=== PATIENT | male | born 1945 | race Caucasian/White ===

== ENCOUNTER 2020-11-20 03:05 | Inpatient (IN) | payer MEDICARE, MEDICAID ==
[~2020-11-20] VITALS: Ht 180.3 cm; Wt 64.7 kg
[2020-11-20 04:14] LABS: BASO # 0.1 x10^3/uL (0.0-0.2); BASO % 0 % (0-3); EOS # 0.1 x10^3/uL (0.0-0.7); EOS % 0 % (0-3); HEMATOCRIT 39.2 % (39.0-53.0); HEMOGLOBIN 12.9 g/dL (13.0-17.5); LYMPH % 4 % (24-48); MEAN CORPUSCULAR HEMOGLOBIN 29 pg (25-35); MEAN CORPUSCULAR HGB CONC 33 g/dL (31-37); MEAN CORPUSCULAR VOLUME 87 fL (79-100); MONO # 0.9 x10^3/uL (0.0-1.1); MONO % 4 % (0-9); NEUT # 21.8 x10^3/uL (1.8-7.7); NEUT % 91 % (31-73); PLATELET COUNT 357 x10^3/uL (140-400); RED BLOOD COUNT 4.53 x10^6/uL (4.30-5.70); RED CELL DISTRIBUTION WIDTH 16.9 % (11.5-14.5); WHITE BLOOD COUNT 23.9 x10^3/uL (4.0-11.0)
[2020-11-20] MEDS ORDERED: IV NORMAL SALINE 1000ML BAG 1,000 ML IV ONE (04:30)
[2020-11-20 04:31] LABS: CALCIUM 8.4 mg/dL (8.5-10.1); CREATININE 1.1 mg/dL (0.7-1.3); GFR 65.4; POTASSIUM 3.9 mmol/L (3.5-5.1)
--- NOTE | 2020-11-20 04:33 | PHYS DOC ---
Past Medical History Past Medical History: CHF, COPD, Glaucoma, High Cholesterol, Hypertension, Hypothyroid, Schizophrenia, Other Additional Past Medical Histor: Parkinson's, arthrosclerosis, and bueger's disease Past Surgical History: Pacemaker Smoking Status: Never Smoker Alcohol Use: None General Adult EDM: Chief Complaint: GI PROBLEM HPI: HPI: Patient is a 75 year old male past medical history hyperlipidemia hypertension Parkinson's hypothyroid CHF COPD was sent to the emergency department for evaluation due to abdominal distention. Per EMS patient was sent to the ER for evaluation of abdominal distention. Patient reports tonight he vomited 6 or 7 times. He denies any associated abdominal pain. On arrival patient found to have a heart rate in the 120s. Review of Systems: Review of Systems: Review of systems: Constitutional symptoms- No fever, no chills. Eyes- No Discharge, No Visual Loss Respiratory symptoms- No shortness of breath, No wheezing, No Dyspnea on Exertion Cardiovascular Systems; No chest pain, No Palpitations, No syncope Gastrointestinal symptoms: No abdominal pain, Positive nausea, Positive vomiting denies diarrhea. Genitourinary symptoms: No dysuria. Musculoskeletal symptoms: No back pain No extremity pain. NEUROLOGICAL Symptoms: No headache, no generalized weakness; No focal Weakness Skin: No rash. Heart Score: C/O Chest Pain: N/A Risk Factors: Risk Factors: DM, Current or recent (<one month) smoker, HTN, HLP, family history of CAD, obesity. Risk Scores: Score 0 - 3: 2.5% MACE over next 6 weeks - Discharge Home Score 4 - 6: 20.3% MACE over next 6 weeks - Admit for Clinical Observation Score 7 - 10: 72.7% MACE over next 6 weeks - Early Invasive Strategies Current Medications: Current Medications Medications (Trade) Dose Ordered Sig/Wong Start Time Stop Time Status Last Admin Dose Admin Diltiazem HCl (Cardizem Iv Push) 20 mg 1X ONCE 11/20/20 04:30 11/20/20 04:31 Diltiazem HCl 125 mg/Sodium Chloride 125 ml @ 5 mls/hr 1X ONCE 11/20/20 04:30 11/21/20 05:29 Sodium Chloride 1,000 ml @ 1,000 mls/hr 1X ONCE 11/20/20 04:30 11/20/20 05:29 Allergies: Allergies: Allergies Coded Allergies Type Severity Reaction Last Updated Verified methylparaben Allergy Intermediate 11/20/20 Yes phenazopyridine Allergy Intermediate 11/20/20 Yes Physical Exam: PE: General: alert, no acute distress. Skin: warm, dry and intact. HENT: bilateral external ears normal, oropharynx moist, nose normal. Head:: Normocephalic, atraumatic. Neck: Trachea midline. Eyes: EOMI, Normal conjunctiva, No drainage CARDIOVASCULAR: Tachycardia RESPIRATORY: No respiratory distress Back: Full range of motion. Skin: Warm, dry, no erythema, no rash. MUSCULOSKELETAL: Full range of motion of bilateral upper and lower extremities. GASTROINTESTINAL: Abdomen soft without rebound or guarding NEUROLOGICAL: Alert and noted to person, place and time. No neurological deficits observed Psychiatric: Cooperative. Normal judgment Current Patient Data: Labs: Laboratory Tests Test 11/20/20 04:05 White Blood Count 23.9 x10^3/uL (4.0-11.0) H Red Blood Count 4.53 x10^6/uL (4.30-5.70) Hemoglobin 12.9 g/dL (13.0-17.5) L Hematocrit 39.2 % (39.0-53.0) Mean Corpuscular Volume 87 fL (79-100) Mean Corpuscular Hemoglobin 29 pg (25-35) Mean Corpuscular Hemoglobin Concent 33 g/dL (31-37) Red Cell Distribution Width 16.9 % (11.5-14.5) H Platelet Count 357 x10^3/uL (140-400) Neutrophils (%) (Auto) 91 % (31-73) H Lymphocytes (%) (Auto) 4 % (24-48) L Monocytes (%) (Auto) 4 % (0-9) Eosinophils (%) (Auto) 0 % (0-3) Basophils (%) (Auto) 0 % (0-3) Neutrophils # (Auto) 21.8 x10^3/uL (1.8-7.7) H Lymphocytes # (Auto) 1.0 x10^3/uL (1.0-4.8) Monocytes # (Auto) 0.9 x10^3/uL (0.0-1.1) Eosinophils # (Auto) 0.1 x10^3/uL (0.0-0.7) Basophils # (Auto) 0.1 x10^3/uL (0.0-0.2) Platelet Estimate Pending Laboratory Tests 11/20/20 04:05 Vital Signs: Vital Signs Date Time Temp Pulse Resp B/P (MAP) Pulse Ox O2 Delivery O2 Flow Rate FiO2 11/20/20 03:05 98.0 127 18 142/65 (90) 95 Room Air 98.0 EKG: EKG: [] Radiology/Procedures: Radiology/Procedures: [] Impression: EXAMINATION: CT ABDOMEN+PELVIS W CLINICAL HISTORY: Nausea vomiting abdominal distention TECHNIQUE: CT of the abdomen and pelvis was performed using standard technique, scanning from just above the dome of the diaphragm to the symphysis pubis following administration of intravenous contrast. CT Dose Reduction Employed: One or more of the following individualized dose reduction techniques were utilized for this examination: 1. Automated exposure control 2. Adjustment of the mA and/or kV according to patient size 3. Use of iterative reconstruction technique. COMPARISON: None FINDINGS: Partially visualized cardiac pacemaker/ICD leads. Curvilinear bibasilar subsegmental atelectasis and/or scarring. Trace left pleural effusion. Tiny hypoenhancing lesion in the right hepatic lobe, too small adequately characterize but likely benign. Gallbladder, pancreas, spleen, and adrenal glands unremarkable. Mild left hydronephrosis and proximal hydroureter with mild obstruction possibly related to a small crossing vessel (series 2 image 43). No urinary calculi. Bilateral renal vascular calcifications. Minimally filled urinary bladder with Bueno catheter in place. Moderate rectal stool retention, concerning for impaction. Prominent formed stool and gas throughout the colon. Fluid-filled distal small bowel. Normal appendix. Small hiatal hernia. Extensive arterial atherosclerotic calcification without aneurysm. Thoracolumbar degenerative changes, greatest at L5-S1. IMPRESSION: Findings concerning for rectal stool impaction with additional prominent formed stool throughout the colon as described, correlate for impaction and constipation. Mild left hydroureteronephrosis as described, possibly related to a small crossing vessel. Course & Med Decision Making: Course & Med Decision Making Pertinent Labs and Imaging studies reviewed. (See chart for details) [] Patient was evaluated for chief complaint. Work-up consisted of laboratory analysis and radiologic imaging.. Patient had a WBC greater than 20,000.--Patient was started on Zosyn. Patient tachycardic with heart rates in the 120s 130s treatment included IV fluids. Acute abdominal series WET read stool throughout the colon no air-fluid levels. CT abdomen pelvis ordered pending at the time of admission clinical concern enteritis colitis versus SBO. Patient was admitted to the hospitalist for further evaluation and treatment [place] Disclaimer: Dragthony Disclaimer: This electronic medical record was generated, in whole or in part, using a voice recognition dictation system. Departure Departure Impression: Primary Impression: Nausea & vomiting Additional Impression: Leukocytosis Disposition: ADMITTED INPATIENT Admitting Physician: YESSICA Condition: STABLE Referrals: ROSANNA WALLER MD (PCP) AMARIS OATES DO Nov 20, 2020 04:33
[2020-11-20 04:35] LABS: ALBUMIN 3.2 g/dL (3.4-5.0); ALBUMIN/GLOBULIN RATIO 0.9 (1.0-1.7); TOTAL BILIRUBIN 0.5 mg/dL (0.2-1.0); TOTAL PROTEIN 6.6 g/dL (6.4-8.2)
[2020-11-20 04:55] LABS: % BANDS 2 % (0-9); % LYMPHS 5 % (24-48); % MONOS 5 % (0-10); % SEGS 88 % (35-66); PLT ESTIMATE ADEQUATE (ADEQUATE)
[2020-11-20] MEDS ORDERED: CONTRAST GIVEN. MC PRN (05:00)
[2020-11-20] MEDS ORDERED: IOHEXOL 300 MG/ML 100ML VIAL. IV ONE (05:00)
[2020-11-20] MEDS ORDERED: ONDANSETRON PF 4 MG/2 ML VIAL. IV PRN ×2 (06:30→17:30)
--- NOTE | 2020-11-20 06:56 | RAD ---
EXAMINATION: CT ABDOMEN+PELVIS W CLINICAL HISTORY: Nausea vomiting abdominal distention TECHNIQUE: CT of the abdomen and pelvis was performed using standard technique, scanning from just ab ove the dome of the diaphragm to the symphysis pubis following administration of intravenous contrast . CT Dose Reduction Employed: One or more of the following individualized dose reduction techniques wer e utilized for this examination: 1. Automated exposure control 2. Adjustment of the mA and/or kV ac cording to patient size 3. Use of iterative reconstruction technique. COMPARISON: None FINDINGS: Partially visualized cardiac pacemaker/ICD leads. Curvilinear bibasilar subsegmental atelectasis and/ or scarring. Trace left pleural effusion. Tiny hypoenhancing lesion in the right hepatic lobe, too small adequately characterize but likely rachel ign. Gallbladder, pancreas, spleen, and adrenal glands unremarkable. Mild left hydronephrosis and proximal hydroureter with mild obstruction possibly related to a small c rossing vessel (series 2 image 43). No urinary calculi. Bilateral renal vascular calcifications. Minimally filled urinary bladder with Bueno catheter in place. Moderate rectal stool retention, concerning for impaction. Prominent formed stool and gas throughout the colon. Fluid-filled distal small bowel. Normal appendix. Small hiatal hernia. Extensive arterial atherosclerotic calcification without aneurysm. Thoracolumbar degenerative changes, greatest at L5-S1. IMPRESSION: Findings concerning for rectal stool impaction with additional prominent formed stool throughout the colon as described, correlate for impaction and constipation. Mild left hydroureteronephrosis as described, possibly related to a small crossing vessel. Electronically signed by: Afshin Allison DO (11/20/2020 6:53 AM) SHANDRA
[2020-11-20] MEDS ORDERED: PIPERACILLIN/TAZOBACTAM 4.5 GM in IV NORMAL SALINE 100ML 100 ML IV ONE (07:00)
--- NOTE | 2020-11-20 09:51 | PDOC1 ---
History and Physical Date of Admission Date of Admission DATE: 11/20/20 TIME: 09:50 Identification/Chief Complaint Chief Complaint Vomiting Source Source: Chart review, Patient History of Present Illness History of Present Illness Mr Miller is a 75 year old male past medical history hyperlipidemia hypertension Parkinson's hypothyroid CHF COPD, Glaucoma, Hypothyroid, Schizophrenia, Parkinson's, and buerger's disease who presents to ED from his [facility] in [place], [place] with report of abdominal distention and 7 episodes of emesis. He does note he vomited but has not had any abdominal pain. CT abdomen pelvis with mild hydroureter on left, no stones notes. Findings concerning for rectal stool impaction with additional prominent formed stool throughout the colon. WBC 23.9, Hb 12.9, platelets 357, Na 131, K 3.9, BUN 12, Cr 1.1, glucose 166, trop 0, Albumin 3.2 On arrival patient found to have a heart rate in the 120s was started on cardizem per ED. EKG does appear to have ventricularly paced rhythm with rate 124 bpm and multiple PVCs, no ST segment elevations or TWI. Admitted for further care. Family History Family History Reviewed, unknown Family History: Family History Unknown Social History Smoke: No ALCOHOL: none Drugs: None Current Medications Current Medications Current Medications Diltiazem HCl (Cardizem Iv Push) 20 mg 1X ONCE IVP ; Start 11/20/20 at 04:30; Stop 11/20/20 at 06:34; Status DC Diltiazem HCl 125 mg/Sodium Chloride 125 ml @ 5 mls/hr 1X ONCE IV ; Start 11/20/20 at 04:30; Stop 11/20/20 at 06:34; Status DC Sodium Chloride 1,000 ml @ 1,000 mls/hr 1X ONCE IV Last administered on 11/20/20at 05:03; Start 11/20/20 at 04:30; Stop 11/20/20 at 05:29; Status DC Iohexol (Omnipaque 300 Mg/ml) 75 ml 1X ONCE IV Last administered on 11/20/20at 05:37; Start 11/20/20 at 05:00; Stop 11/20/20 at 05:01; Status DC Info (CONTRAST GIVEN -- Rx MONITORING) 1 each PRN DAILY PRN MC SEE COMMENTS; Start 11/20/20 at 05:00; Stop 11/22/20 at 04:59 Ondansetron HCl (Zofran) 4 mg PRN Q8HRS PRN IV NAUSEA/VOMITING 1ST CHOICE; Start 11/20/20 at 06:30; Stop 11/21/20 at 06:29 Piperacillin Sod/ Tazobactam Sod 4.5 gm/Sodium Chloride 100 ml @ 200 mls/hr 1X ONCE IV Last administered on 11/20/20at 07:14; Start 11/20/20 at 07:00; Stop 11/20/20 at 07:29; Status DC Allergies Allergies: Coded Allergies: methylparaben (Verified Allergy, Intermediate, 11/20/20) phenazopyridine (Verified Allergy, Intermediate, 11/20/20) ROS General: YES: Fatigue, Malaise; No: Chills, Night Sweats, Appetite, Other PSYCHOLOGICAL ROS: YES: Anxiety, Behavioral Disorder; No: Concentration difficultie, Decreased libido, Depression, Disorientation, Hallucinations, Hostility, Irritablity, Memory difficulties, Mood Swings, Obsessive thoughts, Physical abuse, Sexual abuse, Sleep disturbances, Suicidal ideation, Other Eyes: No Blurry vision, No Decreased vision, No Double vision, No Dry eyes, No Excessive tearing, No Eye Pain, No Itchy Eyes, No Loss of vision, No Photophobia, No Scotomata, No Uses contacts, No Uses glasses, No Other HEENT: No: Heacaches, Visual Changes, Hearing change, Nasal congestion, Nasal discharge, Oral lesions, Sinus pain, Sore Throat, Epistaxis, Sneezing, Snoring, Tinnitus, Vertigo, Vocal changes, Other ALLERGY AND IMMUNOLOGY: No: Hives, Insect Bite Sensitivity, Itchy/Watery Eyes, Nasal Congestion, Post Nasal Drip, Seasonal Allergies, Other Hematological and Lymphatic: No: Bleeding Problems, Blood Clots, Blood Transfusions, Brusing, Night Sweats, Pallor, Swollen Lymph Nodes, Other ENDOCRINE: No: Breast Changes, Galactorrhea, Hair Pattern Changes, Hot Flashes, Malaise/lethargy, Mood Swings, Palpitations, Polydipsia/polyuria, Skin Changes, Temperature Intolerance, Unexpected Weight Changes, Other Breast: No New/Changing Breast Lumps, No Nipple changes, No Nipple discharge, N o Other Respiratory: No: Cough, Hemoptysis, Orthopnea, Pleuritic Pain, Shortness of breath, SOB with excertion, Sputum Changes, Stridor, Tachypnea, Wheezing, Other Cardiovascular: No Chest Pain, No Palpitations, No Orthopnea, No Paroxysmal Noc. Dyspnea, No Edema, No Lt Headedness, No Other Gastrointestinal: No Nausea, No Vomiting, No Abdominal Pain, No Diarrhea, No Constipation, No Melena, No Hematochezia, No Other Genitourinary: No Dysuria, No Frequency, No Incontinence, No Hematuria, No Retention, No Discharge, No Urgency, No Pain, No Flank Pain, No Other, No , No , No , No , No , No , No Musculoskeletal: No Gait Disturbance, No Joint Pain, No Joint Stiffness, No Joint Swelling, No Muscle Pain, No Muscular Weakness, No Pain In:, No Swelling In:, No Other Neurological: No Behavorial Changes, No Bowel/Bladder ControlChng, No Confusion, No Dizziness, No Gait Disturbance, No Headaches, No Impaired Coord/balance, No Memory Loss, No Numbness/Tingling, No Seizures, No Speech Problems, No Tremors, No Visual Changes, No Weakness, No Other Skin: No Dry Skin, No Eczema, No Hair Changes, No Lumps, No Mole Changes, No Mottling, No Nail Changes, No Pruritus, No Rash, No Skin Lesion Changes, No Other, No Acne Physical Exam General: Alert, Cooperative, No acute distress HEENT: Atraumatic, PERRLA, EOMI, Mucous membr. moist/pink Lungs: Clear to auscultation, Normal air movement Heart: S1S2, RRR, no thrills, no rubs Abdomen: Normal bowel sounds, No hepatosplenomegaly, No masses, Other (distended) Extremities: No clubbing, No cyanosis, No edema, Normal pulses, No tenderness/swelling Skin: Other (Bilateral foot wounds, gluteal redness) Neuro: Sensation intact, Cranial nerves 3-12 NL, Reflexes 2+ Psych/Mental Status: Other (Confused) Vitals Vitals Vital Signs Date Time Temp Pulse Resp B/P (MAP) Pulse Ox O2 Delivery O2 Flow Rate FiO2 11/20/20 06:29 98 16 91/55 (67) 94 Room Air 11/20/20 03:05 98.0 98.0 Labs Labs Laboratory Tests Test 11/20/20 04:05 White Blood Count 23.9 x10^3/uL (4.0-11.0) Red Blood Count 4.53 x10^6/uL (4.30-5.70) Hemoglobin 12.9 g/dL (13.0-17.5) Hematocrit 39.2 % (39.0-53.0) Mean Corpuscular Volume 87 fL (79-100) Mean Corpuscular Hemoglobin 29 pg (25-35) Mean Corpuscular Hemoglobin Concent 33 g/dL (31-37) Red Cell Distribution Width 16.9 % (11.5-14.5) Platelet Count 357 x10^3/uL (140-400) Neutrophils (%) (Auto) 91 % (31-73) Lymphocytes (%) (Auto) 4 % (24-48) Monocytes (%) (Auto) 4 % (0-9) Eosinophils (%) (Auto) 0 % (0-3) Basophils (%) (Auto) 0 % (0-3) Neutrophils # (Auto) 21.8 x10^3/uL (1.8-7.7) Lymphocytes # (Auto) 1.0 x10^3/uL (1.0-4.8) Monocytes # (Auto) 0.9 x10^3/uL (0.0-1.1) Eosinophils # (Auto) 0.1 x10^3/uL (0.0-0.7) Basophils # (Auto) 0.1 x10^3/uL (0.0-0.2) Segmented Neutrophils % 88 % (35-66) Band Neutrophils % 2 % (0-9) Lymphocytes % 5 % (24-48) Monocytes % 5 % (0-10) Platelet Estimate Adequate (ADEQUATE) Sodium Level 131 mmol/L (136-145) Potassium Level 3.9 mmol/L (3.5-5.1) Chloride Level 94 mmol/L (98-107) Carbon Dioxide Level 23 mmol/L (21-32) Anion Gap 14 (6-14) Blood Urea Nitrogen 12 mg/dL (8-26) Creatinine 1.1 mg/dL (0.7-1.3) Estimated GFR (Cockcroft-Gault) 65.4 BUN/Creatinine Ratio 11 (6-20) Glucose Level 166 mg/dL (70-99) Calcium Level 8.4 mg/dL (8.5-10.1) Total Bilirubin 0.5 mg/dL (0.2-1.0) Aspartate Amino Transf (AST/SGOT) 20 U/L (15-37) Alanine Aminotransferase (ALT/SGPT) 13 U/L (16-63) Alkaline Phosphatase 54 U/L (46-116) Troponin I Quantitative < 0.017 ng/mL (0.000-0.055) Total Protein 6.6 g/dL (6.4-8.2) Albumin 3.2 g/dL (3.4-5.0) Albumin/Globulin Ratio 0.9 (1.0-1.7) Lipase 29 U/L (73-393) Laboratory Tests Test 11/20/20 04:05 White Blood Count 23.9 x10^3/uL (4.0-11.0) Red Blood Count 4.53 x10^6/uL (4.30-5.70) Hemoglobin 12.9 g/dL (13.0-17.5) Hematocrit 39.2 % (39.0-53.0) Mean Corpuscular Volume 87 fL (79-100) Mean Corpuscular Hemoglobin 29 pg (25-35) Mean Corpuscular Hemoglobin Concent 33 g/dL (31-37) Red Cell Distribution Width 16.9 % (11.5-14.5) Platelet Count 357 x10^3/uL (140-400) Neutrophils (%) (Auto) 91 % (31-73) Lymphocytes (%) (Auto) 4 % (24-48) Monocytes (%) (Auto) 4 % (0-9) Eosinophils (%) (Auto) 0 % (0-3) Basophils (%) (Auto) 0 % (0-3) Neutrophils # (Auto) 21.8 x10^3/uL (1.8-7.7) Lymphocytes # (Auto) 1.0 x10^3/uL (1.0-4.8) Monocytes # (Auto) 0.9 x10^3/uL (0.0-1.1) Eosinophils # (Auto) 0.1 x10^3/uL (0.0-0.7) Basophils # (Auto) 0.1 x10^3/uL (0.0-0.2) Segmented Neutrophils % 88 % (35-66) Band Neutrophils % 2 % (0-9) Lymphocytes % 5 % (24-48) Monocytes % 5 % (0-10) Platelet Estimate Adequate (ADEQUATE) Sodium Level 131 mmol/L (136-145) Potassium Level 3.9 mmol/L (3.5-5.1) Chloride Level 94 mmol/L (98-107) Carbon Dioxide Level 23 mmol/L (21-32) Anion Gap 14 (6-14) Blood Urea Nitrogen 12 mg/dL (8-26) Creatinine 1.1 mg/dL (0.7-1.3) Estimated GFR (Cockcroft-Gault) 65.4 BUN/Creatinine Ratio 11 (6-20) Glucose Level 166 mg/dL (70-99) Calcium Level 8.4 mg/dL (8.5-10.1) Total Bilirubin 0.5 mg/dL (0.2-1.0) Aspartate Amino Transf (AST/SGOT) 20 U/L (15-37) Alanine Aminotransferase (ALT/SGPT) 13 U/L (16-63) Alkaline Phosphatase 54 U/L (46-116) Troponin I Quantitative < 0.017 ng/mL (0.000-0.055) Total Protein 6.6 g/dL (6.4-8.2) Albumin 3.2 g/dL (3.4-5.0) Albumin/Globulin Ratio 0.9 (1.0-1.7) Lipase 29 U/L (73-393) Images Images CT abdomen/pelvis: Partially visualized cardiac pacemaker/ICD leads. Curvilinear bibasilar subsegmental atelectasis and/or scarring. Trace left pleural effusion. Tiny hypoenhancing lesion in the right hepatic lobe, too small adequately characterize but likely benign. Gallbladder, pancreas, spleen, and adrenal glands unremarkable. Mild left hydronephrosis and proximal hydroureter with mild obstruction possibly related to a small crossing vessel (series 2 image 43). No urinary calculi. Bilateral renal vascular calcifications. Minimally filled urinary bladder with Berman catheter in place. Moderate rectal stool retention, concerning for impaction. Prominent formed stool and gas throughout the colon. Fluid-filled distal small bowel. Normal appendix. Small hiatal hernia. Extensive arterial atherosclerotic calcification without aneurysm. Thoracolumbar degenerative changes, greatest at L5-S1. IMPRESSION: Findings concerning for rectal stool impaction with additional prominent formed stool throughout the colon as described, correlate for impaction and constipation. Mild left hydroureteronephrosis as described, possibly related to a small crossing vessel. VTE Prophylaxis Ordered VTE Prophylaxis Devices: No VTE Pharmacological Prophylaxi: Yes Assessment/Plan Assessment/Plan A/P: Nausea and vomiting - no clear SBO, constipation likely etiology. Will keep NPO. IV antiemetics, fluids Sepsis - with left hydroureter and possible colitiis, will f/u empiric cultures from urine and blood and give zosyn for UTI/ GI coverage Hyponatremia - likely hypovolemic. will gently hydrate given his h/o CHF, will limit overall fluids Hydronephrosis - no pain, but patient is poor historian. Likely due to constipation and with vessel overlying ureter, will cont berman and antibiotics for now Tachycardia - Likely due to sepsis. has pacer appears to be functioning H/o v-tach - s/p ppm, also on amiodarone Hyperlipidemia - on statin Hypertension - BP low, likely autonomic dysfunction possibly associated with parkinson disease Hypothyroid - on levothyroxine 50mcg daily CHF - diastolic per SNF records. No BB noted, likely cannot tolerate due to low BP COPD - prn nebs Glaucoma - eye drops Schizophrenia - on risperidal 1mg and olanzapine 10mg QHS Parkinson's - on sinemet Buerger's disease- no smoking Urinary retention - has chronic berman catheter changed monthly. Bilateral foot wounds - chronic, will have wound care to see FEN - NPO PPX - heparin CODE - FULL. Surrogate decision maker is Faith Ambrose Dispo - inpatient Justifications for Admission Other Justification SARIAH LOMAS MD Nov 20, 2020 09:51
[2020-11-20] MEDS ORDERED: BISACODYL 10 MG SUPP.RECT. PR PRN (10:00)
[2020-11-20 11:30] VITALS: BP 101/56
[2020-11-20 15:06] VITALS: BP 95/50
[2020-11-20] MEDS ORDERED: IV RINGERS,LACTATED 1000ML 1,000 ML IV ONE (17:30)
[2020-11-20 17:57] VITALS: BP 110/54
[2020-11-20] MEDS: PIPERACILLIN/TAZOBACTAM 3.375 GM in IV NORMAL SALINE 50ML 50 ML IV SCH (18:15)
[2020-11-20 19:00] VITALS: BP 111/52
--- NOTE | 2020-11-20 19:33 | EKG ---
[facility] [address] [place] [address] Test Date: 2020-11-20 Test Time: 03:23:00 Pat Name: FLORENTINO BROWN Department: Room: 434 1 Gender: M Manager Shop: : [id number] Requested By: AMARIS OATES Order Number: [id number] Reading MD: Measurements Intervals [place] Rate: 124 P: [place]: QRS: 54 QRSD: 84 T: 85 QT: 290 QTc: 420 Interpretive Statements IRREGULAR RHYTHM, NO P-WAVE FOUND VENTRICULAR PREMATURE COMPLEX(ES) QRS(T) CONTOUR ABNORMALITY CONSISTENT WITH ANTERIOR INFARCT POSSIBLY RECENT ABNORMAL ECG RI6.02 No previous ECG available for comparison
[2020-11-20] MEDS ORDERED: ALBUTEROL SULFATE 2.5 MG/3 ML NEBU. NEB PRN (21:45)
[2020-11-20] MEDS ORDERED: hydrALAZINE 20 MG/ML VIAL. IVP PRN (22:00)
[2020-11-20] MEDS ORDERED: METOCLOPRAMIDE HCL 10 MG/2 ML VIAL. IVP PRN (22:00)
[2020-11-20] MEDS ORDERED: BENZTROPINE MESYLATE 2 MG/2 ML VIAL. IM PRN (22:00)
[2020-11-20] MEDS: HEPARIN for SUB-Q USE 5,000 UNIT/ML VIAL. SQ SCH (22:22)
[2020-11-20 23:00] VITALS: BP 93/42
[2020-11-21] MEDS: PIPERACILLIN/TAZOBACTAM 3.375 GM in IV NORMAL SALINE 50ML 50 ML IV SCH ×5 (00:23→23:56)
[2020-11-21 03:00] VITALS: BP 91/45
[2020-11-21] MEDS: HEPARIN for SUB-Q USE 5,000 UNIT/ML VIAL. SQ SCH ×3 (04:58→21:12)
[2020-11-21 06:03] LABS: BASO # 0.1 x10^3/uL (0.0-0.2); BASO % 1 % (0-3); EOS # 0.3 x10^3/uL (0.0-0.7); EOS % 4 % (0-3); HEMOGLOBIN 10.4 g/dL (13.0-17.5); LYMPH # 1.7 x10^3/uL (1.0-4.8); LYMPH % 24 % (24-48); MEAN CORPUSCULAR HEMOGLOBIN 29 pg (25-35); MEAN CORPUSCULAR HGB CONC 34 g/dL (31-37); MEAN CORPUSCULAR VOLUME 86 fL (79-100); MONO # 0.6 x10^3/uL (0.0-1.1); MONO % 8 % (0-9); NEUT # 4.5 x10^3/uL (1.8-7.7); NEUT % 63 % (31-73); PLATELET COUNT 297 x10^3/uL (140-400); RED BLOOD COUNT 3.59 x10^6/uL (4.30-5.70); WHITE BLOOD COUNT 7.2 x10^3/uL (4.0-11.0)
[2020-11-21 06:22] LABS: ALBUMIN 2.4 g/dL (3.4-5.0); ALBUMIN/GLOBULIN RATIO 0.7 (1.0-1.7); CREATININE 0.9 mg/dL (0.7-1.3); GFR 82.5; POTASSIUM 3.3 mmol/L (3.5-5.1); TOTAL BILIRUBIN 0.4 mg/dL (0.2-1.0); TOTAL PROTEIN 5.7 g/dL (6.4-8.2)
[2020-11-21 07:00] VITALS: BP 98/53
[2020-11-21] MEDS ORDERED: MAGNESIUM HYDROXIDE 2,400 MG/30 ML ORAL.SUSP. PO PRN (07:00)
[2020-11-21] MEDS ORDERED: POLYETHYLENE GLYCOL 3350 17 GM PACKET. PO SCH (09:00)
--- NOTE | 2020-11-21 09:33 | PDOC2 ---
GI CONSULT Date of Service: DATE: 11/21/20 TIME: 09:33 Reason For Consult: colitis/constipation HPI: HPI: 75 y/o male w/ PMH as below. Sent to ER from [facility] w/ vomiting. Noted w/ possible fecal impaction on CT. Nurse reports two large stools since admission w/o recurrent emesis. Not much history from pt - he denies pain, knows the correct year, but cannot tell me who is president. He does recall vomiting before coming to the hospital. D/w nurse - apparently was on Hospice but no longer? Full code here. PMH: PMH: CHF, COPD, Parkinson's, HTN, HLD, hypothyroidism, schizophrenia, glaucoma, urinary retention w/ chronic Ubeno, Buerger's disease, pacemaker FH: Family History: No pertinent hx Social History: Smoke: No ALCOHOL: none Drugs: None ROS: Denies pain. Vitals: Vitals: Vital Signs Date Time Temp Pulse Resp B/P (MAP) Pulse Ox O2 Delivery O2 Flow Rate FiO2 11/21/20 07:44 97 Room Air 11/21/20 07:00 98.3 71 17 98/53 (68) 98.3 Labs: Labs: Laboratory Tests Test 11/21/20 05:25 White Blood Count 7.2 x10^3/uL (4.0-11.0) Red Blood Count 3.59 x10^6/uL (4.30-5.70) Hemoglobin 10.4 g/dL (13.0-17.5) Hematocrit 31.0 % (39.0-53.0) Mean Corpuscular Volume 86 fL (79-100) Mean Corpuscular Hemoglobin 29 pg (25-35) Mean Corpuscular Hemoglobin Concent 34 g/dL (31-37) Red Cell Distribution Width 17.0 % (11.5-14.5) Platelet Count 297 x10^3/uL (140-400) Neutrophils (%) (Auto) 63 % (31-73) Lymphocytes (%) (Auto) 24 % (24-48) Monocytes (%) (Auto) 8 % (0-9) Eosinophils (%) (Auto) 4 % (0-3) Basophils (%) (Auto) 1 % (0-3) Neutrophils # (Auto) 4.5 x10^3/uL (1.8-7.7) Lymphocytes # (Auto) 1.7 x10^3/uL (1.0-4.8) Monocytes # (Auto) 0.6 x10^3/uL (0.0-1.1) Eosinophils # (Auto) 0.3 x10^3/uL (0.0-0.7) Basophils # (Auto) 0.1 x10^3/uL (0.0-0.2) Sodium Level 137 mmol/L (136-145) Potassium Level 3.3 mmol/L (3.5-5.1) Chloride Level 104 mmol/L (98-107) Carbon Dioxide Level 24 mmol/L (21-32) Anion Gap 9 (6-14) Blood Urea Nitrogen 8 mg/dL (8-26) Creatinine 0.9 mg/dL (0.7-1.3) Estimated GFR (Cockcroft-Gault) 82.5 BUN/Creatinine Ratio 9 (6-20) Glucose Level 68 mg/dL (70-99) Calcium Level 8.0 mg/dL (8.5-10.1) Total Bilirubin 0.4 mg/dL (0.2-1.0) Aspartate Amino Transf (AST/SGOT) 16 U/L (15-37) Alanine Aminotransferase (ALT/SGPT) 11 U/L (16-63) Alkaline Phosphatase 37 U/L (46-116) Total Protein 5.7 g/dL (6.4-8.2) Albumin 2.4 g/dL (3.4-5.0) Albumin/Globulin Ratio 0.7 (1.0-1.7) Allergies: Coded Allergies: methylparaben (Verified Allergy, Intermediate, 11/20/20) phenazopyridine (Verified Allergy, Intermediate, 11/20/20) Medications: Current Medications Medications (Trade) Dose Ordered Sig/Wong Route PRN Reason Start Time Stop Time Status Last Admin Dose Admin Piperacillin Sod/ Tazobactam Sod 3.375 gm/Sodium Chloride 50 ml @ 100 mls/hr Q6HRS IV 11/20/20 18:00 11/21/20 04:54 Ringer's Solution 1,000 ml @ 75 mls/hr 1X ONCE IV 11/20/20 17:30 11/21/20 06:49 DC 11/20/20 18:14 Heparin Sodium (Porcine) (Heparin Sodium) 5,000 unit Q8HRS SQ 11/20/20 22:00 11/21/20 04:58 Imaging: Imaging: CT A/P FINDINGS: Partially visualized cardiac pacemaker/ICD leads. Curvilinear bibasilar subsegmental atelectasis and/or scarring. Trace left pleural effusion. Tiny hypoenhancing lesion in the right hepatic lobe, too small adequately characterize but likely benign. Gallbladder, pancreas, spleen, and adrenal glands unremarkable. Mild left hydronephrosis and proximal hydroureter with mild obstruction possibly related to a small crossing vessel (series 2 image 43). No urinary calculi. Bilateral renal vascular calcifications. Minimally filled urinary bladder with Bueno catheter in place. Moderate rectal stool retention, concerning for impaction. Prominent formed stool and gas throughout the colon. Fluid-filled distal small bowel. Normal appendix. Small hiatal hernia. Extensive arterial atherosclerotic calcification without aneurysm. Thoracolumbar degenerative changes, greatest at L5-S1. IMPRESSION: Findings concerning for rectal stool impaction with additional prominent formed stool throughout the colon as described, correlate for impaction and constipation. Mild left hydroureteronephrosis as described, possibly related to a small crossing vessel. PE: GEN: chronically ill HEENT: Atraumatic LUNGS: CTAB HEART: RRR ABD: NABS, S/ND/NT EXTREMITY/SKIN: BLE in boots NEURO/PSYCH: drowsy, some confusion A/P: A/P: Vomiting, tachycardia - resolved Leukocytosis (resolved), normocytic anemia Abnormal CT - possible stool impaction, constipation, mild left hydronephrosis and proximal hydroureter w/ mild obstruction, fluid-filled distal SB Tiny right hepatic lesion - noted on CT, likely benign Urinary retention - defer to Dr. Reyes -- Try clears, ADAT. Unclear how much stool he has passed - ?overflow? - will try mineral oil enema. Seems needs more aggressive treatment of constipation - reviewed med list from facility - has PRN options. JELLY SMITH Nov 21, 2020 09:33
[2020-11-21] MEDS: DORZOLAMIDE 2% OPHTH SOLUTION 10ML BOTTLE. OS SCH ×3 (09:39→21:00)
[2020-11-21] MEDS: ASPIRIN ENTERIC COATED 81 MG TABLET.DR. PO SCH (09:39)
[2020-11-21] MEDS: LEVOTHYROXINE 50 MCG TABLET PO SCH (09:39)
[2020-11-21] MEDS: risperiDONE 1 MG TABLET. PO SCH ×2 (09:39→20:58)
[2020-11-21] MEDS: CARBIDOPA/LEVODOPA 10/100MG TABLET PO SCH ×2 (09:39→20:58)
[2020-11-21] MEDS: AMIODARONE HCL 200 MG TABLET. PO SCH (09:41)
--- NOTE | 2020-11-21 10:28 | PDOC ---
PROGRESS NOTES Date of Service: DATE: 11/21/20 TIME: 10:28 Chief Complaint Chief Complaint Assessment/Plan Assessment/Plan A/P: Nausea and vomiting - no clear SBO, constipation likely etiology. Will keep NPO. IV antiemetics, fluids Sepsis - with left hydroureter and possible colitiis, will f/u empiric cultures from urine and blood and give zosyn for UTI/ GI coverage Hyponatremia - likely hypovolemic. will gently hydrate given his h/o CHF, will limit overall fluids Hydronephrosis - no pain, but patient is poor historian. Likely due to constipation and with vessel overlying ureter, will cont berman and antibiotics for now Tachycardia - Likely due to sepsis. has pacer appears to be functioning H/o v-tach - s/p ppm, also on amiodarone Hyperlipidemia - on statin Hypertension - BP low, likely autonomic dysfunction possibly associated with parkinson disease Hypothyroid - on levothyroxine 50mcg daily CHF - diastolic per SNF records. No BB noted, likely cannot tolerate due to low BP COPD - prn nebs Glaucoma - eye drops Schizophrenia - on risperidal 1mg and olanzapine 10mg QHS Parkinson's - on sinemet Buerger's disease- no smoking Urinary retention - has chronic berman catheter changed monthly. Bilateral foot wounds - chronic, will have wound care to see FEN - NPO PPX - heparin CODE - FULL. Surrogate decision maker is Faith Ambrose Dispo - inpatient Justifications for Admission Justifications for Admission Other Justification History of Present Illness History of Present Illness Identification/Chief Complaint Chief Complaint Vomiting Source Source: Chart review, Patient History of Present Illness History of Present Illness Mr Miller is a 75 year old male past medical history hyperlipidemia hypertension Parkinson's hypothyroid CHF COPD, Glaucoma, Hypothyroid, Schi zophrenia, Parkinson's, and buerger's disease who presents to ED from his snf SNF in [place], [place] with report of abdominal distention and 7 episodes of emesis. He does note he vomited but has not had any abdominal pain. CT abdomen pelvis with mild hydroureter on left, no stones notes. Findings concerning for rectal stool impaction with additional prominent formed stool th roughout the colon. WBC 23.9, Hb 12.9, platelets 357, Na 131, K 3.9, BUN 12, Cr 1.1, glucose 166, trop 0, Albumin 3.2 On arrival patient found to have a heart rate in the 120s was started on cardizem per ED. EKG does appear to have ventricularly paced rhythm with rate 124 bpm and multiple PVCs, no ST segment elevations or TWI. Admitted for further care. Family History Family History Reviewed, unknown Family History: Family History Unknown Social History Smoke: No ALCOHOL: none Drugs: None Current Medications Current Medications Current Medications Diltiazem HCl (Cardizem Iv Push) 20 mg 1X ONCE IVP ; Start 11/20/20 at 04:30; Stop 11/20/20 at 06:34; Status DC Diltiazem HCl 125 mg/Sodium Chloride 125 ml @ 5 mls/hr 1X ONCE IV ; Start 11/20/20 at 04:30; Stop 11/20/20 at 06:34; Status DC Sodium Chloride 1,000 ml @ 1,000 mls/hr 1X ONCE IV Last administered on 11/20/20at 05:03; Start 11/20/20 at 04:30; Stop 11/20/20 at 05:29; Status DC Iohexol (Omnipaque 300 Mg/ml) 75 ml 1X ONCE IV Last administered on 11/20/20at 05:37; Start 11/20/20 at 05:00; Stop 11/20/20 at 05:01; Status DC Info (CONTRAST GIVEN -- Rx MONITORING) 1 each PRN DAILY PRN MC SEE COMMENTS; Start 11/20/20 at 05:00; Stop 11/22/20 at 04:59 Ondansetron HCl (Zofran) 4 mg PRN Q8HRS PRN IV NAUSEA/VOMITING 1ST CHOICE; Start 11/20/20 at 06:30; Stop 11/21/20 at 06:29 Piperacillin Sod/ Tazobactam Sod 4.5 gm/Sodium Chloride 100 ml @ 200 mls/hr 1X ONCE IV Last administered on 11/20/20at 07:14; Start 11/20/20 at 07:00; Stop 11/20/20 at 07:29; Status DC Allergies Allergies: Coded Allergies: methylparaben (Verified Allergy, Intermediate, 11/20/20) phenazopyridine (Verified Allergy, Intermediate, 11/20/20) ROS General: YES: Fatigue, Malaise; No: Chills, Night Sweats, Appetite, Other PSYCHOLOGICAL ROS: YES: Anxiety, Behavioral Disorder; No: Concentration difficultie, Decreased libido, Depression, Disorientation, Hallucinations, Hostility, Irritablity, Memory difficulties, Mood Swings, Obsessive thoughts, Physical abuse, Sexual abuse, Sleep disturbances, Suicidal ideation, Other Eyes: No Blurry vision, No Decreased vision, No Double vision, No Dry eyes, No Excessive tearing, No Eye Pain, No Itchy Eyes, No Loss of vision, No Photophobia, No Scotomata, No Uses contacts, No Uses glasses, No Other HEENT: No: Heacaches, Visual Changes, Hearing change, Nasal congestion, Nasal discharge, Oral lesions, Sinus pain, Sore Throat, Epistaxis, Sneezing, Snoring, Tinnitus, Vertigo, Vocal changes, Other ALLERGY AND IMMUNOLOGY: No: Hives, Insect Bite Sensitivity, Itchy/Watery Eyes, Nasal Congestion, Post Nasal Drip, Seasonal Allergies, Other Hematological and Lymphatic: No: Bleeding Problems, Blood Clots, Blood Transfusions, Brusing, Night Sweats, Pallor, Swollen Lymph Nodes, Other ENDOCRINE: No: Breast Changes, Galactorrhea, Hair Pattern Changes, Hot Flashes, Malaise/lethargy, Mood Swings, Palpitations, Polydipsia/polyuria, Skin Changes, Temperature Intolerance, Unexpected Weight Changes, Other Breast: No New/Changing Breast Lumps, No Nipple changes, No Nipple discharge, No Other Respiratory: No: Cough, Hemoptysis, Orthopnea, Pleuritic Pain, Shortness of breath, SOB with excertion, Sputum Changes, Stridor, Tachypnea, Wheezing, Other Cardiovascular: No Chest Pain, No Palpitations, No Orthopnea, No Paroxysmal Noc. Dyspnea, No Edema, No Lt Headedness, No Other Gastrointestinal: No Nausea, No Vomiting, No Abdominal Pain, No Diarrhea, No Constipation, No Melena, No Hematochezia, No Other Genitourinary: No Dysuria, No Frequency, No Incontinence, No Hematuria, No Retention, No Discharge, No Urgency, No Pain, No Flank Pain, No Other, No , No , No , No , No , No , No Musculoskeletal: No Gait Disturbance, No Joint Pain, No Joint Stiffness, No Joint Swelling, No Muscle Pain, No Muscular Weakness, No Pain In:, No Swelling In:, No Other Neurological: No Behavorial Changes, No Bowel/Bladder ControlChng, No Confusion, No Dizziness, No Gait Disturbance, No Headaches, No Impaired Coord/balance, No Memory Loss, No Numbness/Tingling, No Seizures, No Speech Problems, No Tremors, No Visual Changes, No Weakness, No Other Skin: No Dry Skin, No Eczema, No Hair Changes, No Lumps, No Mole Changes, No Mottling, No Nail Changes, No Pruritus, No Rash, No Skin Lesion Changes, No Other, No Acne Vitals Vitals Vital Signs Date Time Temp Pulse Resp B/P (MAP) Pulse Ox O2 Delivery O2 Flow Rate FiO2 11/21/20 09:41 71 98/53 11/21/20 07:44 97 Room Air 11/21/20 07:00 98.3 17 98.3 Physical Exam Physical Exam Physical Exam General: Alert, Cooperative, No acute distress HEENT: Atraumatic, PERRLA, EOMI, Mucous membr. moist/pink Lungs: Clear to auscultation, Normal air movement Heart: S1S2, RRR, no thrills, no rubs Abdomen: Normal bowel sounds, No hepatosplenomegaly, No masses, Other (distended) Extremities: No clubbing, No cyanosis, No edema, Normal pulses, No tenderness/swelling Skin: Other (Bilateral foot wounds, gluteal redness) Neuro: Sensation intact, Cranial nerves 3-12 NL, Reflexes 2+ Psych/Mental Status: Other (Confused) both feet, toes with chronic wasting toes with onychomycosis, ulcers General: Alert, Cooperative, No acute distress Abdomen: Normal bowel sounds, No hepatosplenomegaly, No masses, Other (distended) Extremities: No clubbing, No cyanosis, No edema, Normal pulses, No tenderness/swelling Skin: Other (Bilateral foot wounds, gluteal redness) Labs LABS PATIENT: FLORENTINO MILLER ACCOUNT: [id number] : 1945 LOCATION: ER AGE: 75 SEX: M EXAM STATUS: REG ER ORD. PHYSICIAN: AMARIS OATES DO REASON: nausea vomiting abdominal distention, OMNI 300, 75 ML IV PROCEDURE: CT ABD PELV W/ IV CONTRST ONLY EXAMINATION: CT ABDOMEN+PELVIS W CLINICAL HISTORY: Nausea vomiting abdominal distention TECHNIQUE: CT of the abdomen and pelvis was performed using standard technique, scanning from just above the dome of the diaphragm to the symphysis pubis fol lowing administration of intravenous contrast. CT Dose Reduction Employed: One or more of the following individualized dose r eduction techniques were utilized for this examination: 1. Automated exposure control 2. Adjustment of the mA and/or kV according to patient size 3. Use of iterative reconstruction technique. COMPARISON: None FINDINGS: Partially visualized cardiac pacemaker/ICD leads. Curvilinear bibasilar subsegmental atelectasis and/or scarring. Trace left pleural effusion. Tiny hypoenhancing lesion in the right hepatic lobe, too small adequately characterize but likely benign. Gallbladder, pancreas, spleen, and adrenal glands unremarkable. Mild left hydronephrosis and proximal hydroureter with mild obstruction possibly related to a small crossing vessel (series 2 image 43). No urinary calculi. Bilateral renal vascular calcifications. Minimally filled urinary bladder with Berman catheter in place. Moderate rectal stool retention, concerning for impaction. Prominent formed stool and gas throughout the colon. Fluid-filled distal small bowel. Normal appendix. Small hiatal hernia. Extensive arterial atherosclerotic calcification without aneurysm. Thoracolumbar degenerative changes, greatest at L5-S1. IMPRESSION: Findings concerning for rectal stool impaction with additional prominent formed stool throughout the colon as described, correlate for impaction and cons tipation. Mild left hydroureteronephrosis as described, possibly related to a small crossing vessel. Electronically signed by: Afshin Downing DO (11/20/2020 6:53 AM) [facility] DICTATED and SIGNED BY: AFSHIN DOWNING DO DATE: 11/20/20 [id number] Laboratory Tests Test 11/21/20 05:25 White Blood Count 7.2 x10^3/uL (4.0-11.0) Red Blood Count 3.59 x10^6/uL (4.30-5.70) Hemoglobin 10.4 g/dL (13.0-17.5) Hematocrit 31.0 % (39.0-53.0) Mean Corpuscular Volume 86 fL (79-100) Mean Corpuscular Hemoglobin 29 pg (25-35) Mean Corpuscular Hemoglobin Concent 34 g/dL (31-37) Red Cell Distribution Width 17.0 % (11.5-14.5) Platelet Count 297 x10^3/uL (140-400) Neutrophils (%) (Auto) 63 % (31-73) Lymphocytes (%) (Auto) 24 % (24-48) Monocytes (%) (Auto) 8 % (0-9) Eosinophils (%) (Auto) 4 % (0-3) Basophils (%) (Auto) 1 % (0-3) Neutrophils # (Auto) 4.5 x10^3/uL (1.8-7.7) Lymphocytes # (Auto) 1.7 x10^3/uL (1.0-4.8) Monocytes # (Auto) 0.6 x10^3/uL (0.0-1.1) Eosinophils # (Auto) 0.3 x10^3/uL (0.0-0.7) Basophils # (Auto) 0.1 x10^3/uL (0.0-0.2) Sodium Level 137 mmol/L (136-145) Potassium Level 3.3 mmol/L (3.5-5.1) Chloride Level 104 mmol/L (98-107) Carbon Dioxide Level 24 mmol/L (21-32) Anion Gap 9 (6-14) Blood Urea Nitrogen 8 mg/dL (8-26) Creatinine 0.9 mg/dL (0.7-1.3) Estimated GFR (Cockcroft-Gault) 82.5 BUN/Creatinine Ratio 9 (6-20) Glucose Level 68 mg/dL (70-99) Calcium Level 8.0 mg/dL (8.5-10.1) Total Bilirubin 0.4 mg/dL (0.2-1.0) Aspartate Amino Transf (AST/SGOT) 16 U/L (15-37) Alanine Aminotransferase (ALT/SGPT) 11 U/L (16-63) Alkaline Phosphatase 37 U/L (46-116) Total Protein 5.7 g/dL (6.4-8.2) Albumin 2.4 g/dL (3.4-5.0) Albumin/Globulin Ratio 0.7 (1.0-1.7) Assessment and Plan Assessmemt and Plan Problems Medical Problems: (1) Leukocytosis Status: Acute (2) Nausea & vomiting Status: Acute Comment Review of Relevant I have reviewed the following items jeremy (where applicable) has been applied. Labs Laboratory Tests Test 11/20/20 04:05 11/21/20 05:25 White Blood Count 23.9 x10^3/uL (4.0-11.0) 7.2 x10^3/uL (4.0-11.0) Red Blood Count 4.53 x10^6/uL (4.30-5.70) 3.59 x10^6/uL (4.30-5.70) Hemoglobin 12.9 g/dL (13.0-17.5) 10.4 g/dL (13.0-17.5) Hematocrit 39.2 % (39.0-53.0) 31.0 % (39.0-53.0) Mean Corpuscular Volume 87 fL (79-100) 86 fL (79-100) Mean Corpuscular Hemoglobin 29 pg (25-35) 29 pg (25-35) Mean Corpuscular Hemoglobin Concent 33 g/dL (31-37) 34 g/dL (31-37) Red Cell Distribution Width 16.9 % (11.5-14.5) 17.0 % (11.5-14.5) Platelet Count 357 x10^3/uL (140-400) 297 x10^3/uL (140-400) Neutrophils (%) (Auto) 91 % (31-73) 63 % (31-73) Lymphocytes (%) (Auto) 4 % (24-48) 24 % (24-48) Monocytes (%) (Auto) 4 % (0-9) 8 % (0-9) Eosinophils (%) (Auto) 0 % (0-3) 4 % (0-3) Basophils (%) (Auto) 0 % (0-3) 1 % (0-3) Neutrophils # (Auto) 21.8 x10^3/uL (1.8-7.7) 4.5 x10^3/uL (1.8-7.7) Lymphocytes # (Auto) 1.0 x10^3/uL (1.0-4.8) 1.7 x10^3/uL (1.0-4.8) Monocytes # (Auto) 0.9 x10^3/uL (0.0-1.1) 0.6 x10^3/uL (0.0-1.1) Eosinophils # (Auto) 0.1 x10^3/uL (0.0-0.7) 0.3 x10^3/uL (0.0-0.7) Basophils # (Auto) 0.1 x10^3/uL (0.0-0.2) 0.1 x10^3/uL (0.0-0.2) Segmented Neutrophils % 88 % (35-66) Band Neutrophils % 2 % (0-9) Lymphocytes % 5 % (24-48) Monocytes % 5 % (0-10) Platelet Estimate Adequate (ADEQUATE) Sodium Level 131 mmol/L (136-145) 137 mmol/L (136-145) Potassium Level 3.9 mmol/L (3.5-5.1) 3.3 mmol/L (3.5-5.1) Chloride Level 94 mmol/L (98-107) 104 mmol/L (98-107) Carbon Dioxide Level 23 mmol/L (21-32) 24 mmol/L (21-32) Anion Gap 14 (6-14) 9 (6-14) Blood Urea Nitrogen 12 mg/dL (8-26) 8 mg/dL (8-26) Creatinine 1.1 mg/dL (0.7-1.3) 0.9 mg/dL (0.7-1.3) Estimated GFR (Cockcroft-Gault) 65.4 82.5 BUN/Creatinine Ratio 11 (6-20) 9 (6-20) Glucose Level 166 mg/dL (70-99) 68 mg/dL (70-99) Calcium Level 8.4 mg/dL (8.5-10.1) 8.0 mg/dL (8.5-10.1) Total Bilirubin 0.5 mg/dL (0.2-1.0) 0.4 mg/dL (0.2-1.0) Aspartate Amino Transf (AST/SGOT) 20 U/L (15-37) 16 U/L (15-37) Alanine Aminotransferase (ALT/SGPT) 13 U/L (16-63) 11 U/L (16-63) Alkaline Phosphatase 54 U/L (46-116) 37 U/L (46-116) Troponin I Quantitative < 0.017 ng/mL (0.000-0.055) Total Protein 6.6 g/dL (6.4-8.2) 5.7 g/dL (6.4-8.2) Albumin 3.2 g/dL (3.4-5.0) 2.4 g/dL (3.4-5.0) Albumin/Globulin Ratio 0.9 (1.0-1.7) 0.7 (1.0-1.7) Lipase 29 U/L (73-393) Laboratory Tests Test 11/21/20 05:25 White Blood Count 7.2 x10^3/uL (4.0-11.0) Red Blood Count 3.59 x10^6/uL (4.30-5.70) Hemoglobin 10.4 g/dL (13.0-17.5) Hematocrit 31.0 % (39.0-53.0) Mean Corpuscular Volume 86 fL (79-100) Mean Corpuscular Hemoglobin 29 pg (25-35) Mean Corpuscular Hemoglobin Concent 34 g/dL (31-37) Red Cell Distribution Width 17.0 % (11.5-14.5) Platelet Count 297 x10^3/uL (140-400) Neutrophils (%) (Auto) 63 % (31-73) Lymphocytes (%) (Auto) 24 % (24-48) Monocytes (%) (Auto) 8 % (0-9) Eosinophils (%) (Auto) 4 % (0-3) Basophils (%) (Auto) 1 % (0-3) Neutrophils # (Auto) 4.5 x10^3/uL (1.8-7.7) Lymphocytes # (Auto) 1.7 x10^3/uL (1.0-4.8) Monocytes # (Auto) 0.6 x10^3/uL (0.0-1.1) Eosinophils # (Auto) 0.3 x10^3/uL (0.0-0.7) Basophils # (Auto) 0.1 x10^3/uL (0.0-0.2) Sodium Level 137 mmol/L (136-145) Potassium Level 3.3 mmol/L (3.5-5.1) Chloride Level 104 mmol/L (98-107) Carbon Dioxide Level 24 mmol/L (21-32) Anion Gap 9 (6-14) Blood Urea Nitrogen 8 mg/dL (8-26) Creatinine 0.9 mg/dL (0.7-1.3) Estimated GFR (Cockcroft-Gault) 82.5 BUN/Creatinine Ratio 9 (6-20) Glucose Level 68 mg/dL (70-99) Calcium Level 8.0 mg/dL (8.5-10.1) Total Bilirubin 0.4 mg/dL (0.2-1.0) Aspartate Amino Transf (AST/SGOT) 16 U/L (15-37) Alanine Aminotransferase (ALT/SGPT) 11 U/L (16-63) Alkaline Phosphatase 37 U/L (46-116) Total Protein 5.7 g/dL (6.4-8.2) Albumin 2.4 g/dL (3.4-5.0) Albumin/Globulin Ratio 0.7 (1.0-1.7) Medications Current Medications Diltiazem HCl (Cardizem Iv Push) 20 mg 1X ONCE IVP ; Start 11/20/20 at 04:30; Stop 11/20/20 at 06:34; Status DC Diltiazem HCl 125 mg/Sodium Chloride 125 ml @ 5 mls/hr 1X ONCE IV ; Start 11/20/20 at 04:30; Stop 11/20/20 at 06:34; Status DC Sodium Chloride 1,000 ml @ 1,000 mls/hr 1X ONCE IV Last administered on 11/20/20at 05:03; Start 11/20/20 at 04:30; Stop 11/20/20 at 05:29; Status DC Iohexol (Omnipaque 300 Mg/ml) 75 ml 1X ONCE IV Last administered on 11/20/20at 05:37; Start 11/20/20 at 05:00; Stop 11/20/20 at 05:01; Status DC Info (CONTRAST GIVEN -- Rx MONITORING) 1 each PRN DAILY PRN MC SEE COMMENTS; Start 11/20/20 at 05:00; Stop 11/22/20 at 04:59 Ondansetron HCl (Zofran) 4 mg PRN Q8HRS PRN IV NAUSEA/VOMITING 1ST CHOICE; Start 11/20/20 at 06:30; Stop 11/20/20 at 17:21; Status DC Piperacillin Sod/ Tazobactam Sod 4.5 gm/Sodium Chloride 100 ml @ 200 mls/hr 1X ONCE IV Last administered on 11/20/20at 07:14; Start 11/20/20 at 07:00; Stop 11/20/20 at 07:29; Status DC Olanzapine (ZyPREXA ZYDIS) 5 mg PRN BID PRN PO ANXIETY / AGITATION; Start 11/20/20 at 10:00 Fentanyl Citrate (Fentanyl 2ml Vial) 25 mcg PRN Q3HRS PRN IVP SEVERE PAIN 7-10; Start 11/20/20 at 10:00 Bisacodyl (Dulcolax Supp) 10 mg PRN DAILY PRN PA CONSTIPATION; Start 11/20/20 at 10:00 Piperacillin Sod/ Tazobactam Sod 3.375 gm/Sodium Chloride 50 ml @ 100 mls/hr Q6HRS IV Last administered on 11/21/20at 04:54; Start 11/20/20 at 18:00 Ringer's Solution 1,000 ml @ 75 mls/hr 1X ONCE IV Last administered on 11/20/20at 18:14; Start 11/20/20 at 17:30; Stop 11/21/20 at 06:49; Status DC Ondansetron HCl (Zofran) 4 mg PRN Q4HRS PRN IV NAUSEA/VOMITING 1ST CHOICE; Start 11/20/20 at 17:30 Heparin Sodium (Porcine) (Heparin Sodium) 5,000 unit Q8HRS SQ Last administered on 11/21/20at 04:58; Start 11/20/20 at 22:00 Albuterol Sulfate (Ventolin Neb Soln) 2.5 mg PRN Q4HRS PRN NEB SHORTNESS OF BREATH; Start 11/20/20 at 21:45 Hydralazine HCl (Apresoline Inj) 10 mg PRN Q4HRS PRN IVP ELEVATED BP, SEE COMMENTS; Start 11/20/20 at 22:00 Olanzapine (ZyPREXA ZYDIS) 10 mg QHS PO ; Start 11/20/20 at 22:00 Lorazepam (Ativan Inj) 0.5 mg PRN Q4HRS PRN IVP ANXIETY / AGITATION; Start 11/20/20 at 22:00 Benztropine Mesylate (Cogentin) 2 mg PRN BID PRN IM EXTRAPYRAMIDAL SIDE EFFECTS; Start 11/20/20 at 22:00 Metoclopramide HCl (Reglan Vial) 5 mg PRN TID PRN IVP NAUSEA/VOMITING; Start 11/20/20 at 22:00 Aspirin (Ecotrin) 81 mg DAILYWBKFT PO Last administered on 11/21/20 09:39; Start 11/21/20 at 08:00 Amiodarone HCl (Cordarone) 100 mg DAILY PO Last administered on 11/21/20 09:41; Start 11/21/20 at 09:00 Dorzolamide HCl (Trusopt) 1 drop TID OS Last administered on 11/21/20 09:39; Start 11/21/20 at 09:00 Carbidopa/Levodopa (Sinemet 10/100) 1 tab BID PO Last administered on 11/21/20 09:39; Start 11/21/20 at 09:00 Levothyroxine Sodium (Synthroid) 50 mcg DAILY06 PO Last administered on 11/21/20 09:39; Start 11/21/20 at 07:00 Risperidone (RisperDAL) 1 mg BID PO Last administered on 11/21/20 09:39; Start 11/21/20 at 09:00 Polyethylene Glycol (miraLAX PACKET) 17 gm DAILY PO Last administered on 11/21/20 09:41; Start 11/21/20 at 09:00 Magnesium Hydroxide (Milk Of Magnesia) 2,400 mg PRN DAILY PRN PO CONSTIPATION 1ST CHOICE; Start 11/21/20 at 07:00 Vitals/I & O Vital Sign - Last 24 Hours 11/20/20 11/20/20 11/20/20 11/20/20 11:30 15:06 17:57 19:00 Temp 98.7 99.2 97.8 98.2 98.7 99.2 97.8 98.2 Pulse 87 81 80 83 Resp 18 18 18 18 B/P (MAP) 101/56 (71) 95/50 (65) 110/54 (72) 111/52 (71) Pulse Ox 93 93 93 97 O2 Delivery Room Air Room Air Room Air Room Air 11/20/20 11/20/20 11/21/20 11/21/20 20:55 23:00 03:00 07:00 Temp 98.4 98.5 98.3 98.4 98.5 98.3 Pulse 65 75 71 Resp 18 18 17 B/P (MAP) 93/42 (59) 91/45 (60) 98/53 (68) Pulse Ox 92 90 92 O2 Delivery Room Air Room Air Room Air Room Air 11/21/20 11/21/20 07:44 09:41 Pulse 71 B/P (MAP) 98/53 Pulse Ox 97 O2 Delivery Room Air Intake and Output 11/20/20 11/20/20 11/21/20 15:00 23:00 07:00 Intake Total 100 ml 0 ml Output Total 1325 ml 100 ml Balance 100 ml -1325 ml -100 ml Justicifation of Admission Dx: Justifications for Admission: Justification of Admission Dx: Yes Altered Mental Status: Altered Mental Status SATINDER NOONAN MD Nov 21, 2020 10:28
[2020-11-21 11:00] VITALS: BP 99/47
[2020-11-21] MEDS ORDERED: MINERAL OIL 133 ML ENEMA. PR ONE (11:30)
--- NOTE | 2020-11-21 11:40 | NUR ---
SW following. Discussed with RN. JIL verified pt is from [facility] and was on [facility]. Per Radha ([place]) pt does not need a COVID test to return as he has been vaccinated. JIL spoke with Monik at [facility] - pt has been discharged from hospice services due to coming to the hospital. Awaiting further determination of plan. Pt has a guardian Andrés Ambrose (ph: [phone]). JIL will continue to follow.
[2020-11-21] MEDS: PANTOPRAZOLE IV PUSH 40 MG VIAL. IVP SCH (11:55)
[2020-11-21] MEDS ORDERED: POTASSIUM CHLORIDE 20 MEQ TABLET.ER. PO ONE (13:30)
[2020-11-21] MEDS ORDERED: CYANOCOBALAMIN (VITAMIN B-12) 1,000 MCG/ML VIAL. IM ONE (13:45)
[2020-11-21] MEDS: MULTIVITAMIN with MINERAL TABLET. PO SCH (14:45)
[2020-11-21] MEDS: ASCORBIC ACID 500 MG TABLET PO SCH (14:45)
[2020-11-21] MEDS: POLYETHYLENE GLYCOL 3350 17 GM PACKET. PO SCH ×2 (14:46→20:58)
[2020-11-21 15:00] VITALS: BP 110/53
[2020-11-21] MEDS ORDERED: LOPE2TAB27 PO (17:07)
[2020-11-21] MEDS ORDERED: DORZ10DR26 OP (17:07)
[2020-11-21] MEDS ORDERED: DOCU240C13 PO (17:07)
[2020-11-21] MEDS ORDERED: MAGN400O7 PO (17:07)
[2020-11-21] MEDS ORDERED: FURO40TA4 PO (17:07)
[2020-11-21] MEDS ORDERED: IPRA3AMP29 NEB (17:07)
[2020-11-21] MEDS ORDERED: OLAN10TA3 PO (17:07)
[2020-11-21] MEDS ORDERED: POLY17PO29 PO (17:07)
[2020-11-21] MEDS ORDERED: PRED5DRO20 OD (17:07)
[2020-11-21] MEDS ORDERED: POTA20TA4 PO (17:07)
[2020-11-21] MEDS ORDERED: NYST15PO9 TP (17:07)
[2020-11-21] MEDS ORDERED: ASPI-630 PO (17:07)
[2020-11-21] MEDS ORDERED: LEVO50TA PO (17:07)
[2020-11-21] MEDS ORDERED: CLONAZEPAM1 MG PO (17:07)
[2020-11-21] MEDS ORDERED: SPIR25TA5 PO (17:07)
[2020-11-21] MEDS ORDERED: AMIO100T4 PO (17:07)
[2020-11-21] MEDS ORDERED: BUDE10.2 IH (17:07)
[2020-11-21] MEDS ORDERED: RISP1TAB88 PO (17:07)
[2020-11-21] MEDS ORDERED: LATA2.5D2 OU (17:07)
[2020-11-21] MEDS ORDERED: CARB-182 PO (17:07)
[2020-11-21] MEDS ORDERED: ACET325T9 PO (17:07)
[2020-11-21] MEDS ORDERED: HYDR-2759 PO (17:07)
--- NOTE | 2020-11-21 17:08 | NUR ---
Patient refused wound care today
--- NOTE | 2020-11-21 18:02 | NUR ---
Wound Care: Pt has multiple wounds which were present on admission from LTC in [place]. Pt wearing heel medix-style boots to both feet and declined for wound care to assess his feet or skin. Pt stated that we could look at his dressings if we wanted, but preferred that we not remove them.
--- NOTE | 2020-11-21 18:07 | RAD ---
EXAM: Bilateral feet, 3 views. HISTORY: Peripheral vascular disease, toe ulcers. COMPARISON: None. FINDINGS: On the right, the fifth metacarpophalangeal joint is dislocated dorsally. There are hammert oe deformities of the second through fourth digits. There is either chronic fracture/post surgical de formity or an erosion of the lateral cortex of the fifth metatarsal neck. No fractures are identified . Midfoot alignment is maintained. Atherosclerotic calcifications are noted. On the left, there is erosion of the first distal phalangeal tuft. No clear additional tuft erosions are appreciated, though the toes are turned under. There is also a large erosion along the lateral as pect of the fifth metatarsal head. No fractures are identified. Midfoot alignment is maintained. IMPRESSION: 1. Suspect active erosions along the lateral aspect of the fifth metatarsal head/neck on the left gre ater than right. 2. An erosion of the left first distal phalangeal tuft may not be acute. Correlate for active infecti on. Electronically signed by: Jorge Winter MD (11/21/2020 6:04 PM) [id number]
[2020-11-21 19:00] VITALS: BP 95/44
--- NOTE | 2020-11-21 20:32 | RAD ---
US DPLX ARTR EXTREM LOWER BILAT Indication: Reason: pvd / Spl. Instructions: / History: Pain. Comparison: None. Procedure: Real-time grayscale, color flow Doppler, and Doppler spectral waveform analysis of the art erial system of the lower extremity is performed. Findings: Degraded evaluation due to patient's difficulty holding still. Right lower extremity: Moderate atheromatous plaque. Monophasic waveform throughout the right lower e xtremity. No significant velocity elevation. Left lower extremity: Moderate atheromatous plaque. Monophasic waveform distally within the left lowe r extremity. No significant velocity elevation. Left posterior tibial artery not identified distally. IMPRESSION: 1. Nonvisualization of the distal left posterior tibial artery, may relate to occlusion. CT angiogra m can further assess as clinically warranted. 2. Monophasic waveforms bilaterally, may indicate proximal stenosis. 3. Moderate atheromatous plaque. Electronically signed by: Edouard Rivera DO (11/21/2020 8:29 PM) [facility]
[2020-11-21 23:00] VITALS: BP 94/49
[2020-11-22 03:00] VITALS: BP 115/54
[2020-11-22] MEDS: PIPERACILLIN/TAZOBACTAM 3.375 GM in IV NORMAL SALINE 50ML 50 ML IV SCH ×3 (05:22→19:03)
[2020-11-22] MEDS: LEVOTHYROXINE 50 MCG TABLET PO SCH (05:29)
[2020-11-22] MEDS: HEPARIN for SUB-Q USE 5,000 UNIT/ML VIAL. SQ SCH ×3 (05:34→21:33)
[2020-11-22 07:00] VITALS: BP 102/43
[2020-11-22] MEDS: risperiDONE 1 MG TABLET. PO SCH ×2 (09:29→21:21)
[2020-11-22] MEDS: ASCORBIC ACID 500 MG TABLET PO SCH (09:29)
[2020-11-22] MEDS: CARBIDOPA/LEVODOPA 10/100MG TABLET PO SCH ×2 (09:29→21:21)
[2020-11-22] MEDS: MULTIVITAMIN with MINERAL TABLET. PO SCH (09:29)
[2020-11-22] MEDS: ASPIRIN ENTERIC COATED 81 MG TABLET.DR. PO SCH (09:29)
[2020-11-22] MEDS: POTASSIUM CHLORIDE 20 MEQ TABLET.ER. PO SCH (09:29)
[2020-11-22] MEDS: PANTOPRAZOLE IV PUSH 40 MG VIAL. IVP SCH (09:29)
[2020-11-22] MEDS: DORZOLAMIDE 2% OPHTH SOLUTION 10ML BOTTLE. OS SCH ×3 (09:30→21:21)
[2020-11-22] MEDS: AMIODARONE HCL 200 MG TABLET. PO SCH (09:30)
[2020-11-22] MEDS: POLYETHYLENE GLYCOL 3350 17 GM PACKET. PO SCH ×2 (09:31→22:20)
[2020-11-22] MEDS: fentaNYL PF VIAL 100 MCG/2 ML VIAL IVP PRN ×2 (09:37→21:33)
--- NOTE | 2020-11-22 09:37 | PDOC ---
PROGRESS NOTES Date of Service: DATE: 11/22/20 TIME: 09:44 Chief Complaint Chief Complaint Assessment/Plan Assessment/Plan A/P: Nausea and vomiting - no clear SBO, constipation likely etiology. Will keep NPO. IV antiemetics, fluids Sepsis - with left hydroureter and possible colitiis, will f/u empiric cultures from urine and blood and give zosyn for UTI/ GI coverage Hyponatremia - likely hypovolemic. will gently hydrate given his h/o CHF, will limit overall fluids Hydronephrosis - no pain, but patient is poor historian. Likely due to constipation and with vessel overlying ureter, will cont berman and antibiotics for now Tachycardia - Likely due to sepsis. has pacer appears to be functioning H/o v-tach - s/p ppm, also on amiodarone Hyperlipidemia - on statin Hypertension - BP low, likely autonomic dysfunction possibly associated with parkinson disease Hypothyroid - on levothyroxine 50mcg daily CHF - diastolic per SNF records. No BB noted, likely cannot tolerate due to low BP COPD - prn nebs Glaucoma - eye drops Schizophrenia - on risperidal 1mg and olanzapine 10mg QHS Parkinson's - on sinemet Buerger's disease- no smoking Urinary retention - has chronic berman catheter changed monthly. Bilateral foot wounds - chronic, will have wound care to see FEN - NPO PPX - heparin CODE - FULL. Surrogate decision maker is Faith Ambrose Dispo - inpatient Justifications for Admission Justifications for Admission Other Justification History of Present Illness History of Present Illness Identification/Chief Complaint Chief Complaint Vomiting Source Source: Chart review, Patient History of Present Illness History of Present Illness Mr Miller is a 75 year old male past medical history hyperlipidemia hypertension Parkinson's hypothyroid CHF COPD, Glaucoma, Hypothyroid, Schi zophrenia, Parkinson's, and buerger's disease who presents to ED from his skilled nursing SNF in [place], [place] with report of abdominal distention and 7 episodes of emesis. He does note he vomited but has not had any abdominal pain. CT abdomen pelvis with mild hydroureter on left, no stones notes. Findings concerning for rectal stool impaction with additional prominent formed stool th roughout the colon. WBC 23.9, Hb 12.9, platelets 357, Na 131, K 3.9, BUN 12, Cr 1.1, glucose 166, trop 0, Albumin 3.2 On arrival patient found to have a heart rate in the 120s was started on cardizem per ED. EKG does appear to have ventricularly paced rhythm with rate 124 bpm and multiple PVCs, no ST segment elevations or TWI. Admitted for further care. Family History Family History Reviewed, unknown Family History: Family History Unknown Social History Smoke: No ALCOHOL: none Drugs: None Current Medications Current Medications Current Medications Diltiazem HCl (Cardizem Iv Push) 20 mg 1X ONCE IVP ; Start 11/20/20 at 04:30; Stop 11/20/20 at 06:34; Status DC Diltiazem HCl 125 mg/Sodium Chloride 125 ml @ 5 mls/hr 1X ONCE IV ; Start 11/20/20 at 04:30; Stop 11/20/20 at 06:34; Status DC Sodium Chloride 1,000 ml @ 1,000 mls/hr 1X ONCE IV Last administered on 11/20/20at 05:03; Start 11/20/20 at 04:30; Stop 11/20/20 at 05:29; Status DC Iohexol (Omnipaque 300 Mg/ml) 75 ml 1X ONCE IV Last administered on 11/20/20at 05:37; Start 11/20/20 at 05:00; Stop 11/20/20 at 05:01; Status DC Info (CONTRAST GIVEN -- Rx MONITORING) 1 each PRN DAILY PRN MC SEE COMMENTS; Start 11/20/20 at 05:00; Stop 11/22/20 at 04:59 Ondansetron HCl (Zofran) 4 mg PRN Q8HRS PRN IV NAUSEA/VOMITING 1ST CHOICE; Start 11/20/20 at 06:30; Stop 11/21/20 at 06:29 Piperacillin Sod/ Tazobactam Sod 4.5 gm/Sodium Chloride 100 ml @ 200 mls/hr 1X ONCE IV Last administered on 11/20/20at 07:14; Start 11/20/20 at 07:00; Stop 11/20/20 at 07:29; Status DC Allergies Allergies: Coded Allergies: methylparaben (Verified Allergy, Intermediate, 11/20/20) phenazopyridine (Verified Allergy, Intermediate, 11/20/20) ROS General: YES: Fatigue, Malaise; No: Chills, Night Sweats, Appetite, Other PSYCHOLOGICAL ROS: YES: Anxiety, Behavioral Disorder; No: Concentration difficultie, Decreased libido, Depression, Disorientation, Hallucinations, Hostility, Irritablity, Memory difficulties, Mood Swings, Obsessive thoughts, Physical abuse, Sexual abuse, Sleep disturbances, Suicidal ideation, Other Eyes: No Blurry vision, No Decreased vision, No Double vision, No Dry eyes, No Excessive tearing, No Eye Pain, No Itchy Eyes, No Loss of vision, No Photophobia, No Scotomata, No Uses contacts, No Uses glasses, No Other HEENT: No: Heacaches, Visual Changes, Hearing change, Nasal congestion, Nasal discharge, Oral lesions, Sinus pain, Sore Throat, Epistaxis, Sneezing, Snoring, Tinnitus, Vertigo, Vocal changes, Other ALLERGY AND IMMUNOLOGY: No: Hives, Insect Bite Sensitivity, Itchy/Watery Eyes, Nasal Congestion, Post Nasal Drip, Seasonal Allergies, Other Hematological and Lymphatic: No: Bleeding Problems, Blood Clots, Blood Transfusions, Brusing, Night Sweats, Pallor, Swollen Lymph Nodes, Other ENDOCRINE: No: Breast Changes, Galactorrhea, Hair Pattern Changes, Hot Flashes, Malaise/lethargy, Mood Swings, Palpitations, Polydipsia/polyuria, Skin Changes, Temperature Intolerance, Unexpected Weight Changes, Other Breast: No New/Changing Breast Lumps, No Nipple changes, No Nipple discharge, No Other Respiratory: No: Cough, Hemoptysis, Orthopnea, Pleuritic Pain, Shortness of breath, SOB with excertion, Sputum Changes, Stridor, Tachypnea, Wheezing, Other Cardiovascular: No Chest Pain, No Palpitations, No Orthopnea, No Paroxysmal Noc. Dyspnea, No Edema, No Lt Headedness, No Other Gastrointestinal: No Nausea, No Vomiting, No Abdominal Pain, No Diarrhea, No Constipation, No Melena, No Hematochezia, No Other Genitourinary: No Dysuria, No Frequency, No Incontinence, No Hematuria, No Retention, No Discharge, No Urgency, No Pain, No Flank Pain, No Other, No , No , No , No , No , No , No Musculoskeletal: No Gait Disturbance, No Joint Pain, No Joint Stiffness, No Joint Swelling, No Muscle Pain, No Muscular Weakness, No Pain In:, No Swelling In:, No Other Neurological: No Behavorial Changes, No Bowel/Bladder ControlChng, No Confusion, No Dizziness, No Gait Disturbance, No Headaches, No Impaired Coord/balance, No Memory Loss, No Numbness/Tingling, No Seizures, No Speech Problems, No Tremors, No Visual Changes, No Weakness, No Other Skin: No Dry Skin, No Eczema, No Hair Changes, No Lumps, No Mole Changes, No Mottling, No Nail Changes, No Pruritus, No Rash, No Skin Lesion Changes, No Other, No Acne 6-23 Monophasic waveforms bilaterally, may indicate proximal stenosis. Nausea and vomiting - no clear SBO, constipation likely etiology. Will keep NPO. IV antiemetics, fluids Sepsis - with left hydroureter and possible colitiis, will f/u empiric cultures from urine and blood and give zosyn for UTI/ GI coverage Hyponatremia - likely hypovolemic. will gently hydrate given his h/o CHF, will limit overall fluids Hydronephrosis - no pain, but patient is poor historian. Likely due to constipation and with vessel overlying ureter, will cont berman and antibiotics for now Tachycardia - Likely due to sepsis. has pacer appears to be functioning H/o v-tach - s/p ppm, also on amiodarone Hyperlipidemia - on statin Hypertension - BP low, likely autonomic dysfunction possibly associated with parkinson disease Hypothyroid - on levothyroxine 50mcg daily CHF - diastolic per SNF records. No BB noted, likely cannot tolerate due to low BP COPD - prn nebs Glaucoma - eye drops Schizophrenia - on risperidal 1mg and olanzapine 10mg QHS Parkinson's - on sinemet Buerger's disease- no smoking Urinary retention - has chronic berman catheter changed monthly. Bilateral foot wounds - chronic, will have wound care to see FEN -REG DIET PPX - heparin Suspect active erosions along the lateral aspect of the fifth metatarsal head/neck on the left greater than right. An erosion of the left first distal phalangeal tuft may not be acute. Correlate for active infection. CODE - FULL. Surrogate decision maker is Faith Ambrose Dispo - inpatient CONSULT VASCULAR SURGERY, ID [id number] MIN pt exam, chart review, > 50% of time spent with exam, chart review, pt care coordination Justifications for Admission Justifications for Admission Other Justification Vitals Vitals Vital Signs Date Time Temp Pulse Resp B/P (MAP) Pulse Ox O2 Delivery O2 Flow Rate FiO2 11/22/20 07:00 98.1 64 17 102/43 (62) 93 Room Air 98.1 Physical Exam Physical Exam Physical Exam General: Alert, Cooperative, No acute distress HEENT: Atraumatic, PERRLA, EOMI, Mucous membr. moist/pink Lungs: Clear to auscultation, Normal air movement Heart: S1S2, RRR, no thrills, no rubs Abdomen: Normal bowel sounds, No hepatosplenomegaly, No masses, Other (distended) Extremities: No clubbing, No cyanosis, No edema, Normal pulses, No tenderness/swelling Skin: Other (Bilateral foot wounds, gluteal redness) Neuro: Sensation intact, Cranial nerves 3-12 NL, Reflexes 2+ Psych/Mental Status: Other (Confused) both feet, toes with chronic wasting toes with onychomycosis, ulcers General: Alert, Cooperative, No acute distress, Other (hallucinating , talking to self) Heart: Regular rate Lungs: Clear Abdomen: Normal bowel sounds, No hepatosplenomegaly, No masses, Other (distended) Extremities: No clubbing, No cyanosis, No edema, Normal pulses, No tende rness/swelling Skin: Other (Bilateral foot wounds, gluteal redness) Labs LABS EXAM: Bilateral feet, 3 views. HISTORY: Peripheral vascular disease, toe ulcers. COMPARISON: None. FINDINGS: On the right, the fifth metacarpophalangeal joint is dislocated dorsally. There are hammertoe deformities of the second through fourth digits. There is either chronic fracture/post surgical deformity or an erosion of the lateral cortex of the fifth metatarsal neck. No fractures are identified. Midfoot alignment is maintained. Atherosclerotic calcifications are noted. On the left, there is erosion of the first distal phalangeal tuft. No clear additional tuft erosions are appreciated, though the toes are turned under. There is also a large erosion along the lateral aspect of the fifth metatarsal head. No fractures are identified. Midfoot alignment is maintained. IMPRESSION: 1. Suspect active erosions along the lateral aspect of the fifth metatarsal head/neck on the left greater than right. 2. An erosion of the left first distal phalangeal tuft may not be acute. Correlate for active infection. Electronically signed by: Jorge Winter MD (11/21/2020 6:04 PM) [id number] DICTATED and SIGNED BY: JOSSIE WINTER MD DATE: 11/21/20 [id number] PATIENT: FLORENTINO MILLER ACCOUNT: [id number] : 1945 LOCATION: [address] [place] [address] AGE: 75 SEX: M EXAM STATUS: ADM IN ORD. PHYSICIAN: SATINDER NOONAN MD REASON: pvd PROCEDURE: DUPLEX LOWER EXTREMITY BILAT US DPLX ARTR EXTREM LOWER BILAT Indication: Reason: pvd / Spl. Instructions: / History: Pain. Comparison: None. Procedure: Real-time grayscale, color flow Doppler, and Doppler spectral waveform analysis of the arterial system of the lower extremity is performed. Findings: Degraded evaluation due to patient's difficulty holding still. Right lower extremity: Moderate atheromatous plaque. Monophasic waveform throughout the right lower extremity. No significant velocity elevation. Left lower extremity: Moderate atheromatous plaque. Monophasic waveform distally within the left lower extremity. No significant velocity elevation. Left posterior tibial artery not identified distally. IMPRESSION: 1. Nonvisualization of the distal left posterior tibial artery, may relate to occlusion. CT angiogram can further assess as clinically warranted. 2. Monophasic waveforms bilaterally, may indicate proximal stenosis. 3. Moderate atheromatous plaque. Electronically signed by: Edouard Osborne DO (11/21/2020 8:29 PM) [facility] DICTATED and SIGNED BY: EDOUARD OSBORNE DO DATE: 11/21/[id number] 0 Assessment and Plan Assessmemt and Plan Problems Medical Problems: (1) Leukocytosis Status: Acute (2) Nausea & vomiting Status: Acute Comment Review of Relevant I have reviewed the following items jeremy (where applicable) has been applied. Labs Laboratory Tests Test 11/21/20 05:25 White Blood Count 7.2 x10^3/uL (4.0-11.0) Red Blood Count 3.59 x10^6/uL (4.30-5.70) Hemoglobin 10.4 g/dL (13.0-17.5) Hematocrit 31.0 % (39.0-53.0) Mean Corpuscular Volume 86 fL (79-100) Mean Corpuscular Hemoglobin 29 pg (25-35) Mean Corpuscular Hemoglobin Concent 34 g/dL (31-37) Red Cell Distribution Width 17.0 % (11.5-14.5) Platelet Count 297 x10^3/uL (140-400) Neutrophils (%) (Auto) 63 % (31-73) Lymphocytes (%) (Auto) 24 % (24-48) Monocytes (%) (Auto) 8 % (0-9) Eosinophils (%) (Auto) 4 % (0-3) Basophils (%) (Auto) 1 % (0-3) Neutrophils # (Auto) 4.5 x10^3/uL (1.8-7.7) Lymphocytes # (Auto) 1.7 x10^3/uL (1.0-4.8) Monocytes # (Auto) 0.6 x10^3/uL (0.0-1.1) Eosinophils # (Auto) 0.3 x10^3/uL (0.0-0.7) Basophils # (Auto) 0.1 x10^3/uL (0.0-0.2) Sodium Level 137 mmol/L (136-145) Potassium Level 3.3 mmol/L (3.5-5.1) Chloride Level 104 mmol/L (98-107) Carbon Dioxide Level 24 mmol/L (21-32) Anion Gap 9 (6-14) Blood Urea Nitrogen 8 mg/dL (8-26) Creatinine 0.9 mg/dL (0.7-1.3) Estimated GFR (Cockcroft-Gault) 82.5 BUN/Creatinine Ratio 9 (6-20) Glucose Level 68 mg/dL (70-99) Calcium Level 8.0 mg/dL (8.5-10.1) Iron Level 41 ug/dL (65-175) Total Iron Binding Capacity 420 ug/dL (250-450) Iron Saturation 10 % (15-34) Total Bilirubin 0.4 mg/dL (0.2-1.0) Aspartate Amino Transf (AST/SGOT) 16 U/L (15-37) Alanine Aminotransferase (ALT/SGPT) 11 U/L (16-63) Alkaline Phosphatase 37 U/L (46-116) Total Protein 5.7 g/dL (6.4-8.2) Albumin 2.4 g/dL (3.4-5.0) Albumin/Globulin Ratio 0.7 (1.0-1.7) Vitamin B12 Level 296 pg/mL (247-911) Medications Current Medications Diltiazem HCl (Cardizem Iv Push) 20 mg 1X ONCE IVP ; Start 11/20/20 at 04:30; Stop 11/20/20 at 06:34; Status DC Diltiazem HCl 125 mg/Sodium Chloride 125 ml @ 5 mls/hr 1X ONCE IV ; Start 11/20/20 at 04:30; Stop 11/20/20 at 06:34; Status DC Sodium Chloride 1,000 ml @ 1,000 mls/hr 1X ONCE IV Last administered on 11/20/20at 05:03; Start 11/20/20 at 04:30; Stop 11/20/20 at 05:29; Status DC Iohexol (Omnipaque 300 Mg/ml) 75 ml 1X ONCE IV Last administered on 11/20/20at 05:37; Start 11/20/20 at 05:00; Stop 11/20/20 at 05:01; Status DC Info (CONTRAST GIVEN -- Rx MONITORING) 1 each PRN DAILY PRN MC SEE COMMENTS; Start 11/20/20 at 05:00; Stop 11/22/20 at 04:59; Status DC Ondansetron HCl (Zofran) 4 mg PRN Q8HRS PRN IV NAUSEA/VOMITING 1ST CHOICE; Start 11/20/20 at 06:30; Stop 11/20/20 at 17:21; Status DC Piperacillin Sod/ Tazobactam Sod 4.5 gm/Sodium Chloride 100 ml @ 200 mls/hr 1X ONCE IV Last administered on 11/20/20at 07:14; Start 11/20/20 at 07:00; Stop 11/20/20 at 07:29; Status DC Olanzapine (ZyPREXA ZYDIS) 5 mg PRN BID PRN PO ANXIETY / AGITATION; Start 11/20/20 at 10:00 Fentanyl Citrate (Fentanyl 2ml Vial) 25 mcg PRN Q3HRS PRN IVP SEVERE PAIN 7-10; Start 11/20/20 at 10:00 Bisacodyl (Dulcolax Supp) 10 mg PRN DAILY PRN GA CONSTIPATION; Start 11/20/20 at 10:00 Piperacillin Sod/ Tazobactam Sod 3.375 gm/Sodium Chloride 50 ml @ 100 mls/hr Q6HRS IV Last administered on 11/22/20at 05:22; Start 11/20/20 at 18:00 Ringer's Solution 1,000 ml @ 75 mls/hr 1X ONCE IV Last administered on 11/20/20at 18:14; Start 11/20/20 at 17:30; Stop 11/21/20 at 06:49; Status DC Ondansetron HCl (Zofran) 4 mg PRN Q4HRS PRN IV NAUSEA/VOMITING 1ST CHOICE; Start 11/20/20 at 17:30 Heparin Sodium (Porcine) (Heparin Sodium) 5,000 unit Q8HRS SQ Last administered on 11/22/20at 05:34; Start 11/20/20 at 22:00 Albuterol Sulfate (Ventolin Neb Soln) 2.5 mg PRN Q4HRS PRN NEB SHORTNESS OF BREATH; Start 11/20/20 at 21:45 Hydralazine HCl (Apresoline Inj) 10 mg PRN Q4HRS PRN IVP ELEVATED BP, SEE COMMENTS; Start 11/20/20 at 22:00 Olanzapine (ZyPREXA ZYDIS) 10 mg QHS PO Last administered on 11/21/20at 20:58; Start 11/20/20 at 22:00 Lorazepam (Ativan Inj) 0.5 mg PRN Q4HRS PRN IVP ANXIETY / AGITATION Last administered on 11/22/20at 03:24; Start 11/20/20 at 22:00 Benztropine Mesylate (Cogentin) 2 mg PRN BID PRN IM EXTRAPYRAMIDAL SIDE EFFECTS; Start 11/20/20 at 22:00 Metoclopramide HCl (Reglan Vial) 5 mg PRN TID PRN IVP NAUSEA/VOMITING; Start 11/20/20 at 22:00 Aspirin (Ecotrin) 81 mg DAILYWBKFT PO Last administered on 11/21/20at 09:39; Start 11/21/20 at 08:00 Amiodarone HCl (Cordarone) 100 mg DAILY PO Last administered on 11/21/20at 09:41; Start 11/21/20 at 09:00 Dorzolamide HCl (Trusopt) 1 drop TID OS Last administered on 11/21/20at 14:46; Start 11/21/20 at 09:00 Carbidopa/Levodopa (Sinemet 10/100) 1 tab BID PO Last administered on 11/21/20at 20:58; Start 11/21/20 at 09:00 Levothyroxine Sodium (Synthroid) 50 mcg DAILY06 PO Last administered on 11/22/20at 05:29; Start 11/21/20 at 07:00 Risperidone (RisperDAL) 1 mg BID PO Last administered on 11/21/20at 20:58; Start 11/21/20 at 09:00 Polyethylene Glycol (miraLAX PACKET) 17 gm DAILY PO Last administered on 11/21/20at 09:41; Start 11/21/20 at 09:00; Stop 11/21/20 at 11:19; Status DC Magnesium Hydroxide (Milk Of Magnesia) 2,400 mg PRN DAILY PRN PO CONSTIPATION 1ST CHOICE; Start 11/21/20 at 07:00 Polyethylene Glycol (miraLAX PACKET) 17 gm BID PO Last administered on 11/21/20at 20:58; Start 11/21/20 at 12:00 Mineral Oil (Fleet Mineral Oil) 133 ml 1X ONCE GA Last administered on 11/21/20at 17:15; Start 11/21/20 at 11:30; Stop 11/21/20 at 11:31; Status DC Pantoprazole Sodium (PROTONIX VIAL for IV PUSH) 40 mg DAILYAC IVP Last administered on 11/21/20at 11:55; Start 11/21/20 at 11:30 Potassium Chloride (Klor-Con) 40 meq 1X ONCE PO Last administered on 11/21/20at 14:45; Start 11/21/20 at 13:30; Stop 11/21/20 at 13:31; Status DC Potassium Chloride (Klor-Con) 20 meq DAILYWBKFT PO ; Start 11/22/20 at 08:00 Cyanocobalamin (Vitamin B-12 Inj) 1,000 mcg 1X ONCE IM Last administered on 11/21/20at 14:45; Start 11/21/20 at 13:45; Stop 11/21/20 at 13:46; Status DC Multivitamins (Thera M Plus) 1 tab DAILY PO Last administered on 11/21/20at 14:45; Start 11/21/20 at 14:00 Ascorbic Acid (Vitamin C) 500 mg DAILY PO Last administered on 11/21/20at 14:45; Start 11/21/20 at 14:00 Active Scripts Active Reported Zyprexa (Olanzapine) 10 Mg Tablet 1 Tab PO QHS Tylenol (Acetaminophen) 325 Mg Tablet 2 Tab PO PRN Q6HRS PRN Synthroid (Levothyroxine Sodium) 50 Mcg Tablet 1 Tab PO DAILY Symbicort 160-4.5 Mcg Inhaler (Budesonide/Formoterol Fumarate) 10.2 Gm Hfa.aer.ad 2 Puff IH BID Spironolactone 25 Mg Tablet 1 Tab PO DAILY Sinemet 10-100 Mg Tablet (Carbidopa/Levodopa) 1 Each Tablet 1 Tab PO BID Risperidone 1 Mg Tablet 1 Tab PO BID Prednisolone Acet 1% Eye Drop (Prednisolone Acetate/Pf) 5 Ml Drops.susp 1 Drop OD QID 30 Days Potassium Chloride (Potassium Chloride) 20 Meq Tablet.er 20 Meq PO DAILY Nystatin 15 Gm Powder 1 John TP BID 7 Days apply to affected area(s) Miralax (Polyethylene Glycol 3350) 17 Gm Powd.pack 1 Packet PO PRN DAILY PRN 2 Days dissolve in water Milk Of Magnesia (Magnesium Hydroxide) 400 Mg/5 Ml Oral.susp 1,200 Mg PO PRN DAILY PRN Loperamide (Loperamide Hcl) 2 Mg Tablet 2 Mg PO PRN PRN Xalatan (Latanoprost) 2.5 Ml Drops 1 Drop OU BID PRN Duoneb 0.5-3(2.5) Mg/3 Ml (Albuterol/Ipratropium) 3 Ml Ampul.neb 3 Ml NEB QID Hydrocodone-Acetamin 5-325 mg (Hydrocodone/Acetaminophen) 1 Each Tablet 1 Each PO PRN Q4HRS PRN Furosemide 40 Mg Tablet 1 Tab PO DAILY Dorzolamide 2% Eye Drop (Dorzolamide HCl/Pf) 10 Ml Drops 10 Ml OP TID Docusate Calcium 240 Mg Capsule 1 Cap PO DAILY 30 Days Clonazepam 1 Mg Tablet 1.5 Mg PO BID Aspirin 81 Mg Tab.chew 1 Tab PO DAILY Amiodarone Hcl 100 Mg Tablet 1 Tab PO DAILY 30 Days Vitals/I & O Vital Sign - Last 24 Hours 11/21/20 11/21/20 11/21/20 11/21/20 11:00 15:00 19:00 20:40 Temp 97.8 98.0 98.0 97.8 98.0 98.0 Pulse 76 73 83 Resp 17 17 14 B/P (MAP) 99/47 (64) 110/53 (72) 95/44 (61) Pulse Ox 95 97 92 O2 Delivery Room Air Room Air Room Air Room Air 11/21/20 11/22/20 11/22/20 23:00 03:00 07:00 Temp 98.5 98.0 98.1 98.5 98.0 98.1 Pulse 75 77 64 Resp 16 16 17 B/P (MAP) 94/49 (64) 115/54 (74) 102/43 (62) Pulse Ox 96 95 93 O2 Delivery Room Air Room Air Room Air Intake and Output 11/21/20 11/21/20 11/22/20 14:53 22:53 06:53 Intake Total 0 ml 340 ml 320 ml Output Total 700 ml 900 ml Balance 0 ml -360 ml -580 ml Nutrition Consultation Dietary Evaluation: Recommendations by RD: Dietary education by RD, Increase Calorie Intake, Protein supplementation Comments: gi soft diet with ensure enlive tid mvi vit c Expected Outcomes/Goals: to meet >75% est nutr needs improved wound status Malnutrition Findings: Body Fat Depletion (Non Severe: Mod to Severe Weight Status: Underweight Justicifation of Admission Dx: Justifications for Admission: Justification of Admission Dx: Yes Altered Mental Status: Altered Mental Status SATINDER NOONAN MD Nov 22, 2020 09:37
--- NOTE | 2020-11-22 09:43 | PDOC ---
Date of Service: DATE: 11/22/20 TIME: 09:38 Subjective: Subjective: Eating breakfast - says it's good. No GI complaints. Slept well. Doesn't like enemas. Objective: Objective: D/w nurse - pt declined enemas but is taking oral medications. No stools since the two he had after admission. Tolerating regular diet, no vomiting. Refusing wound care. Possible DC (?on Hospice) today. Vital Signs: Vital Signs Date Time Temp Pulse Resp B/P (MAP) Pulse Ox O2 Delivery O2 Flow Rate FiO2 11/22/20 07:00 98.1 64 17 102/43 (62) 93 Room Air 98.1 Imaging: Foot X-Ray IMPRESSION: 1. Suspect active erosions along the lateral aspect of the fifth metatarsal head/neck on the left greater than right. 2. An erosion of the left first distal phalangeal tuft may not be acute. Correlate for active infection. LE Duplex IMPRESSION: 1. Nonvisualization of the distal left posterior tibial artery, may relate to occlusion. CT angiogram can further assess as clinically warranted. 2. Monophasic waveforms bilaterally, may indicate proximal stenosis. 3. Moderate atheromatous plaque. PE: GEN: NAD, thin, eating breakfast enthusiastically LUNGS: CTAB HEART: RRR ABD: NABS, S/ND/NT NEURO/PSYCH: appropriate w/ me, probably some confusion at times A/P: Vomiting, tachycardia - resolved Constipation/impaction - has stooled since admission, declined enema Anemia - some iron deficiency, borderline low B12 -- LE imaging noted as above. Dc per primary. Would continue aggressive constipation regimen on discharge - getting Miralax BID here - can adjust as needed. Justicifation of Admission Dx: Justifications for Admission: Justification of Admission Dx: Yes Altered Mental Status: Altered Mental Status JELLY SMITH Nov 22, 2020 09:43
[2020-11-22 11:00] VITALS: BP 91/49
--- NOTE | 2020-11-22 14:44 | NUR ---
Wound Care: Pt has dressings from which were present on admission from [facility] in [place] on Friday. Pt wearing heel medix-style boots to both feet, but he continues to decline for wound care to assess his feet or skin. Patient stated that the dressings would be changed when he returns to his facility. Explained the risks that could be caused by not allowing dressings to be changed and wounds assessed, but patient continues to decline wound care. Spoke with RN whom stated patient has refused most nursing care since admission. Patient should return to facility.
[2020-11-22 15:00] VITALS: BP 93/49
[2020-11-22 19:00] VITALS: BP 105/55
[2020-11-22 20:28] LABS: BASO % 1 % (0-3); EOS # 0.3 x10^3/uL (0.0-0.7); EOS % 4 % (0-3); HEMATOCRIT 32.4 % (39.0-53.0); HEMOGLOBIN 10.8 g/dL (13.0-17.5); LYMPH # 1.3 x10^3/uL (1.0-4.8); LYMPH % 17 % (24-48); MEAN CORPUSCULAR HEMOGLOBIN 29 pg (25-35); MEAN CORPUSCULAR HGB CONC 33 g/dL (31-37); MEAN CORPUSCULAR VOLUME 87 fL (79-100); MONO # 0.5 x10^3/uL (0.0-1.1); MONO % 6 % (0-9); NEUT # 5.6 x10^3/uL (1.8-7.7); NEUT % 72 % (31-73); PLATELET COUNT 308 x10^3/uL (140-400); RED BLOOD COUNT 3.74 x10^6/uL (4.30-5.70); RED CELL DISTRIBUTION WIDTH 17.3 % (11.5-14.5); WHITE BLOOD COUNT 7.7 x10^3/uL (4.0-11.0)
[2020-11-22 23:00] VITALS: BP 108/60
[2020-11-23] MEDS: PIPERACILLIN/TAZOBACTAM 3.375 GM in IV NORMAL SALINE 50ML 50 ML IV SCH ×5 (00:24→23:53)
[2020-11-23] MEDS: LEVOTHYROXINE 50 MCG TABLET PO SCH (06:00)
[2020-11-23] MEDS: HEPARIN for SUB-Q USE 5,000 UNIT/ML VIAL. SQ SCH ×3 (06:00→22:06)
[2020-11-23] MEDS: PANTOPRAZOLE IV PUSH 40 MG VIAL. IVP SCH (06:08)
--- NOTE | 2020-11-23 06:16 | NUR ---
Heparin held for possible surgical procedure today
[2020-11-23 07:00] VITALS: BP 80/51
[2020-11-23] MEDS: ASPIRIN ENTERIC COATED 81 MG TABLET.DR. PO SCH (08:00)
[2020-11-23] MEDS: POTASSIUM CHLORIDE 20 MEQ TABLET.ER. PO SCH (08:00)
[2020-11-23] MEDS: AMIODARONE HCL 200 MG TABLET. PO SCH (08:16)
[2020-11-23] MEDS: MULTIVITAMIN with MINERAL TABLET. PO SCH (08:17)
[2020-11-23] MEDS: ASCORBIC ACID 500 MG TABLET PO SCH (08:17)
[2020-11-23] MEDS: POLYETHYLENE GLYCOL 3350 17 GM PACKET. PO SCH ×2 (08:18→20:32)
[2020-11-23] MEDS: CARBIDOPA/LEVODOPA 10/100MG TABLET PO SCH ×2 (09:00→20:31)
[2020-11-23] MEDS: risperiDONE 1 MG TABLET. PO SCH ×2 (09:00→20:31)
[2020-11-23] MEDS: DORZOLAMIDE 2% OPHTH SOLUTION 10ML BOTTLE. OS SCH ×3 (09:00→20:32)
--- NOTE | 2020-11-23 09:31 | PDOC2 ---
CONSULT Date of Service Date of Service DATE: 11/23/20 TIME: 09:07 Reason for Consult Reason for Consult: Bilateral lower extremity wounds Referring Physician Referring Physician: Dr. Reyes Identification/Chief Complaint Chief Complaint Abdominal distention and vomiting Source Source: Chart review History of Present Illness Reason for Visit: This is a 75-year-old male with a past medical history of hyperlipidemia, hypert ension, Parkinson's, hypothyroid, CHF, COPD, glaucoma, hypothyroid, schizophrenia, Parkinson's and Buerger's disease who presented to the emergency room from a long-term skilled facility with reports of abdominal distention and several episodes of emesis. The patient is uncooperative. Most of the information is obtained from chart review due to patient's inability to communicate and provide adequate history. The patient has multiple foot wounds, uncertain how long they have been present. There is mild erythema and no swelling associated with the wounds. They are tender and he is resistant to allowing me to examine them completely. He does appear to have contracture at his knee. I did discuss patient's current medical status with Dr. Reyes he states at one point time the patient has been on hospice care. He is reportedly wheelchair bound at the facility. CT abdomen pelvis with mild hydroureter on left, no stones notes. Findings concerning for rectal stool impaction with additional prominent formed stool throughout the colon. X-ray Suspect active erosions along the lateral aspect of the fifth metatarsal head/neck on the left greater than right. An erosion of the left first distal phalangeal tuft may not be acute. Correlate for active infection. US: 1. Nonvisualization of the distal left posterior tibial artery, may relate to occlusion. CT angiogram can further assess as clinically warranted. 2. Monophasic waveforms bilaterally, may indicate proximal stenosis. 3. Moderate atheromatous plaque. Past Medical History Past Medical History see HPI Past Surgical History Past Surgical History unable to obtain due to patient's mental status Past Surgical History: Other Family History Family History Unable to obtain due to patient's mental status Family History: Family History Unknown Social History No ALCOHOL: none Drugs: None Current Problem List Problem List Problems Medical Problems: (1) Leukocytosis Status: Acute (2) Nausea & vomiting Status: Acute Current Medications Current Medications Current Medications Diltiazem HCl (Cardizem Iv Push) 20 mg 1X ONCE IVP ; Start 11/20/20 at 04:30; Stop 6/21/21 at 06:34; Status DC Diltiazem HCl 125 mg/Sodium Chloride 125 ml @ 5 mls/hr 1X ONCE IV ; Start 11/20/20 at 04:30; Stop 11/20/20 at 06:34; Status DC Sodium Chloride 1,000 ml @ 1,000 mls/hr 1X ONCE IV Last administered on 11/20/20at 05:03; Start 11/20/20 at 04:30; Stop 11/20/20 at 05:29; Status DC Iohexol (Omnipaque 300 Mg/ml) 75 ml 1X ONCE IV Last administered on 11/20/20at 05:37; Start 11/20/20 at 05:00; Stop 11/20/20 at 05:01; Status DC Info (CONTRAST GIVEN -- Rx MONITORING) 1 each PRN DAILY PRN MC SEE COMMENTS; Start 11/20/20 at 05:00; Stop 11/22/20 at 04:59; Status DC Ondansetron HCl (Zofran) 4 mg PRN Q8HRS PRN IV NAUSEA/VOMITING 1ST CHOICE; Start 11/20/20 at 06:30; Stop 11/20/20 at 17:21; Status DC Piperacillin Sod/ Tazobactam Sod 4.5 gm/Sodium Chloride 100 ml @ 200 mls/hr 1X ONCE IV Last administered on 11/20/20at 07:14; Start 11/20/20 at 07:00; Stop 11/20/20 at 07:29; Status DC Olanzapine (ZyPREXA ZYDIS) 5 mg PRN BID PRN PO ANXIETY / AGITATION; Start 11/20/20 at 10:00 Fentanyl Citrate (Fentanyl 2ml Vial) 25 mcg PRN Q3HRS PRN IVP SEVERE PAIN 7-10 Last administered on 11/22/20at 21:33; Start 11/20/20 at 10:00 Bisacodyl (Dulcolax Supp) 10 mg PRN DAILY PRN MN CONSTIPATION; Start 11/20/20 at 10:00 Piperacillin Sod/ Tazobactam Sod 3.375 gm/Sodium Chloride 50 ml @ 100 mls/hr Q6HRS IV Last administered on 11/23/20at 06:07; Start 11/20/20 at 18:00 Ringer's Solution 1,000 ml @ 75 mls/hr 1X ONCE IV Last administered on 11/20/20at 18:14; Start 11/20/20 at 17:30; Stop 11/21/20 at 06:49; Status DC Ondansetron HCl (Zofran) 4 mg PRN Q4HRS PRN IV NAUSEA/VOMITING 1ST CHOICE; Start 11/20/20 at 17:30 Heparin Sodium (Porcine) (Heparin Sodium) 5,000 unit Q8HRS SQ Last administered on 11/22/20at 21:33; Start 11/20/20 at 22:00 Albuterol Sulfate (Ventolin Neb Soln) 2.5 mg PRN Q4HRS PRN NEB SHORTNESS OF BREATH; Start 11/20/20 at 21:45 Hydralazine HCl (Apresoline Inj) 10 mg PRN Q4HRS PRN IVP ELEVATED BP, SEE COMMENTS; Start 11/20/20 at 22:00 Olanzapine (ZyPREXA ZYDIS) 10 mg QHS PO Last administered on 11/22/20at 21:22; Start 11/20/20 at 22:00 Lorazepam (Ativan Inj) 0.5 mg PRN Q4HRS PRN IVP ANXIETY / AGITATION Last administered on 11/23/20at 00:24; Start 11/20/20 at 22:00 Benztropine Mesylate (Cogentin) 2 mg PRN BID PRN IM EXTRAPYRAMIDAL SIDE EFFECTS; Start 11/20/20 at 22:00 Metoclopramide HCl (Reglan Vial) 5 mg PRN TID PRN IVP NAUSEA/VOMITING; Start 11/20/20 at 22:00 Aspirin (Ecotrin) 81 mg DAILYWBKFT PO Last administered on 11/22/20at 09:29; Start 11/21/20 at 08:00 Amiodarone HCl (Cordarone) 100 mg DAILY PO Last administered on 11/22/20at 09:30; Start 11/21/20 at 09:00 Dorzolamide HCl (Trusopt) 1 drop TID OS Last administered on 11/22/20at 21:21; Start 11/21/20 at 09:00 Carbidopa/Levodopa (Sinemet 10/100) 1 tab BID PO Last administered on 11/22/20at 21:21; Start 11/21/20 at 09:00 Levothyroxine Sodium (Synthroid) 50 mcg DAILY06 PO Last administered on 11/22/20at 05:29; Start 11/21/20 at 07:00 Risperidone (RisperDAL) 1 mg BID PO Last administered on 11/22/20at 21:21; Start 11/21/20 at 09:00 Polyethylene Glycol (miraLAX PACKET) 17 gm DAILY PO Last administered on 11/21/20at 09:41; Start 11/21/20 at 09:00; Stop 11/21/20 at 11:19; Status DC Magnesium Hydroxide (Milk Of Magnesia) 2,400 mg PRN DAILY PRN PO CONSTIPATION 1ST CHOICE; Start 11/21/20 at 07:00 Polyethylene Glycol (miraLAX PACKET) 17 gm BID PO Last administered on 11/22/20at 22:20; Start 11/21/20 at 12:00 Mineral Oil (Fleet Mineral Oil) 133 ml 1X ONCE MN Last administered on 11/21/20at 17:15; Start 11/21/20 at 11:30; Stop 11/21/20 at 11:31; Status DC Pantoprazole Sodium (PROTONIX VIAL for IV PUSH) 40 mg DAILYAC IVP Last administered on 11/23/20at 06:08; Start 11/21/20 at 11:30 Potassium Chloride (Klor-Con) 40 meq 1X ONCE PO Last administered on 11/21/20at 14:45; Start 11/21/20 at 13:30; Stop 11/21/20 at 13:31; Status DC Potassium Chloride (Klor-Con) 20 meq DAILYWBKFT PO Last administered on 11/22/20at 09:29; Start 11/22/20 at 08:00 Cyanocobalamin (Vitamin B-12 Inj) 1,000 mcg 1X ONCE IM Last administered on 11/21/20at 14:45; Start 11/21/20 at 13:45; Stop 11/21/20 at 13:46; Status DC Multivitamins (Thera M Plus) 1 tab DAILY PO Last administered on 11/22/20at 09:29; Start 11/21/20 at 14:00 Ascorbic Acid (Vitamin C) 500 mg DAILY PO Last administered on 11/22/20at 09:29; Start 11/21/20 at 14:00 Active Scripts Active Reported Zyprexa (Olanzapine) 10 Mg Tablet 1 Tab PO QHS Tylenol (Acetaminophen) 325 Mg Tablet 2 Tab PO PRN Q6HRS PRN Synthroid (Levothyroxine Sodium) 50 Mcg Tablet 1 Tab PO DAILY Symbicort 160-4.5 Mcg Inhaler (Budesonide/Formoterol Fumarate) 10.2 Gm Hfa.aer.ad 2 Puff IH BID Spironolactone 25 Mg Tablet 1 Tab PO DAILY Sinemet 10-100 Mg Tablet (Carbidopa/Levodopa) 1 Each Tablet 1 Tab PO BID Risperidone 1 Mg Tablet 1 Tab PO BID Prednisolone Acet 1% Eye Drop (Prednisolone Acetate/Pf) 5 Ml Drops.susp 1 Drop OD QID 30 Days Potassium Chloride (Potassium Chloride) 20 Meq Tablet.er 20 Meq PO DAILY Nystatin 15 Gm Powder 1 John TP BID 7 Days apply to affected area(s) Miralax (Polyethylene Glycol 3350) 17 Gm Powd.pack 1 Packet PO PRN DAILY PRN 2 Days dissolve in water Milk Of Magnesia (Magnesium Hydroxide) 400 Mg/5 Ml Oral.susp 1,200 Mg PO PRN DAILY PRN Loperamide (Loperamide Hcl) 2 Mg Tablet 2 Mg PO PRN PRN Xalatan (Latanoprost) 2.5 Ml Drops 1 Drop OU BID PRN Duoneb 0.5-3(2.5) Mg/3 Ml (Albuterol/Ipratropium) 3 Ml Ampul.neb 3 Ml NEB QID Hydrocodone-Acetamin 5-325 mg (Hydrocodone/Acetaminophen) 1 Each Tablet 1 Each PO PRN Q4HRS PRN Furosemide 40 Mg Tablet 1 Tab PO DAILY Dorzolamide 2% Eye Drop (Dorzolamide HCl/Pf) 10 Ml Drops 10 Ml OP TID Docusate Calcium 240 Mg Capsule 1 Cap PO DAILY 30 Days Clonazepam 1 Mg Tablet 1.5 Mg PO BID Aspirin 81 Mg Tab.chew 1 Tab PO DAILY Amiodarone Hcl 100 Mg Tablet 1 Tab PO DAILY 30 Days Allergies Allergies: Coded Allergies: methylparaben (Verified Allergy, Intermediate, 11/20/20) phenazopyridine (Verified Allergy, Intermediate, 11/20/20) ROS Review of System Unable to obtain due patient's mental status Physical Exam Physical Exam General: Awake HEENT: Mucous membranes moist. Cardiac: Heart rate regular. . Lungs: Non-labored respirations. Abdomen: Obese, soft, nontender, nondistended, no palpable masses. Extremities: 2+ bilateral femoral pulses, unable to appreciate distal pulses. Musculoskeletal: Bilateral foot hammertoes. Patient is uncooperative but does lift legs off of bed during exam and he does extend his knees Skin: Multiple bilateral ulcerations, lateral feet, medial ankles and heels, wound beds clean with some fibrious tissue, there is minimal yellow serous drainage associated with wound, minimal erythema. left heel with some discoloration, intact. Neurological: Motor and sensation intact, some of areas of foot are tender. Psychiatry: Uncooperative Limited exam due to patient cooperation. Vitals VITALS Vital Signs Date Time Temp Pulse Resp B/P (MAP) Pulse Ox O2 Delivery O2 Flow Rate FiO2 11/23/20 08:16 80 80/51 11/23/20 07:00 97.8 18 92 Room Air 97.8 Labs Labs Laboratory Tests Test 11/22/20 20:03 White Blood Count 7.7 x10^3/uL (4.0-11.0) Red Blood Count 3.74 x10^6/uL (4.30-5.70) Hemoglobin 10.8 g/dL (13.0-17.5) Hematocrit 32.4 % (39.0-53.0) Mean Corpuscular Volume 87 fL (79-100) Mean Corpuscular Hemoglobin 29 pg (25-35) Mean Corpuscular Hemoglobin Concent 33 g/dL (31-37) Red Cell Distribution Width 17.3 % (11.5-14.5) Platelet Count 308 x10^3/uL (140-400) Neutrophils (%) (Auto) 72 % (31-73) Lymphocytes (%) (Auto) 17 % (24-48) Monocytes (%) (Auto) 6 % (0-9) Eosinophils (%) (Auto) 4 % (0-3) Basophils (%) (Auto) 1 % (0-3) Neutrophils # (Auto) 5.6 x10^3/uL (1.8-7.7) Lymphocytes # (Auto) 1.3 x10^3/uL (1.0-4.8) Monocytes # (Auto) 0.5 x10^3/uL (0.0-1.1) Eosinophils # (Auto) 0.3 x10^3/uL (0.0-0.7) Basophils # (Auto) 0.0 x10^3/uL (0.0-0.2) Procalcitonin < 0.10 ng/mL (0.00-0.10) Laboratory Tests Test 11/22/20 20:03 White Blood Count 7.7 x10^3/uL (4.0-11.0) Red Blood Count 3.74 x10^6/uL (4.30-5.70) Hemoglobin 10.8 g/dL (13.0-17.5) Hematocrit 32.4 % (39.0-53.0) Mean Corpuscular Volume 87 fL (79-100) Mean Corpuscular Hemoglobin 29 pg (25-35) Mean Corpuscular Hemoglobin Concent 33 g/dL (31-37) Red Cell Distribution Width 17.3 % (11.5-14.5) Platelet Count 308 x10^3/uL (140-400) Neutrophils (%) (Auto) 72 % (31-73) Lymphocytes (%) (Auto) 17 % (24-48) Monocytes (%) (Auto) 6 % (0-9) Eosinophils (%) (Auto) 4 % (0-3) Basophils (%) (Auto) 1 % (0-3) Neutrophils # (Auto) 5.6 x10^3/uL (1.8-7.7) Lymphocytes # (Auto) 1.3 x10^3/uL (1.0-4.8) Monocytes # (Auto) 0.5 x10^3/uL (0.0-1.1) Eosinophils # (Auto) 0.3 x10^3/uL (0.0-0.7) Basophils # (Auto) 0.0 x10^3/uL (0.0-0.2) Procalcitonin < 0.10 ng/mL (0.00-0.10) Images Images see HPI Assessment/Plan Assessment/Plan 75 year old male with peripheral arterial disease and multiple foot wounds. Arterial ultrasound suggests diminished flow to bilateral lower extremities. Leukocytosis has improved and likely unrelated to his foot wounds. Recommend continue local wound care and continue to off-load his heels. Antibiotics per Infectious Disease. The patient potentially wound benefit from an angiogram with possible intervention in order to adequately heal his foot wounds versus continued local wound care. I do not feel he needs surgical debridement at this time. Patient may benefit from a hospice/palliative care consult prior to any additional arterial intervention. Continue daily aspirin. I did speak with the patient's Guardian, she states per her knowledge the wounds are due to "shearing with his sheets" and have only been present for a few weeks. The patient is on Hospice outside the hospital. She did state that she has limited authority with her guardianship but would be agreeable to angiogram if warranted. I did discuss the plan of care with Dr. Willis, Dr. Huitron will see the patient later today and make additional recommendations as needed. LONG VIVAR APRN Nov 23, 2020 09:31
--- NOTE | 2020-11-23 10:32 | PDOC ---
Date of Service: DATE: 11/23/20 TIME: 10:28 Subjective: Subjective: Wants to go home. No GI complaints - is hungry, waiting for breakfast. Stooled "in my pants" last night. Objective: Objective: No GI concerns per nurse. Vital Signs: Vital Signs Date Time Temp Pulse Resp B/P (MAP) Pulse Ox O2 Delivery O2 Flow Rate FiO2 11/23/20 08:16 80 80/51 11/23/20 07:40 Room Air 11/23/20 07:00 97.8 18 92 97.8 Labs: Laboratory Tests Test 11/22/20 20:03 White Blood Count 7.7 x10^3/uL Red Blood Count 3.74 x10^6/uL Hemoglobin 10.8 g/dL Hematocrit 32.4 % Mean Corpuscular Volume 87 fL Mean Corpuscular Hemoglobin 29 pg Mean Corpuscular Hemoglobin Concent 33 g/dL Red Cell Distribution Width 17.3 % Platelet Count 308 x10^3/uL Neutrophils (%) (Auto) 72 % Lymphocytes (%) (Auto) 17 % Monocytes (%) (Auto) 6 % Eosinophils (%) (Auto) 4 % Basophils (%) (Auto) 1 % Neutrophils # (Auto) 5.6 x10^3/uL Lymphocytes # (Auto) 1.3 x10^3/uL Monocytes # (Auto) 0.5 x10^3/uL Eosinophils # (Auto) 0.3 x10^3/uL Basophils # (Auto) 0.0 x10^3/uL Procalcitonin < 0.10 ng/mL PE: GEN: NAD, sitting up in bed LUNGS: CTAB HEART: RRR ABD: S/ND/NT NEURO/PSYCH: A & O 3 A/P: Vomiting - resolved Constipation - stooling Anemia - stable PAD, BLE wounds - vascular following - on Hospice outside the hospital -- Improved from GI standpoint. DC per primary. Justicifation of Admission Dx: Justifications for Admission: Justification of Admission Dx: Yes Altered Mental Status: Altered Mental Status JELLY SMITH Nov 23, 2020 10:32
[2020-11-23 11:01] VITALS: BP 105/54
[2020-11-23] MEDS: fentaNYL PF VIAL 100 MCG/2 ML VIAL IVP PRN ×3 (11:41→23:52)
--- NOTE | 2020-11-23 12:36 | PDOC ---
[employer] PROGRESS NOTE Date of Service DOS: DATE: 11/23/20 TIME: 12:33 Chief Complaint Chief Complaint Assessment/Plan Assessment/Plan A/P: Nausea and vomiting - no clear SBO, constipation likely etiology. Will keep NPO. IV antiemetics, fluids Sepsis - with left hydroureter and possible colitiis, will f/u empiric cultures from urine and blood and give zosyn for UTI/ GI coverage Hyponatremia - likely hypovolemic. will gently hydrate given his h/o CHF, will limit overall fluids Hydronephrosis - no pain, but patient is poor historian. Likely due to constipation and with vessel overlying ureter, will cont berman and antibiotics for now Tachycardia - Likely due to sepsis. has pacer appears to be functioning H/o v-tach - s/p ppm, also on amiodarone Hyperlipidemia - on statin Hypertension - BP low, likely autonomic dysfunction possibly associated with parkinson disease Hypothyroid - on levothyroxine 50mcg daily CHF - diastolic per SNF records. No BB noted, likely cannot tolerate due to low BP COPD - prn nebs Glaucoma - eye drops Schizophrenia - on risperidal 1mg and olanzapine 10mg QHS Parkinson's - on sinemet Buerger's disease- no smoking Urinary retention - has chronic berman catheter changed monthly. Bilateral foot wounds - chronic, will have wound care to see FEN - NPO PPX - heparin CODE - FULL. Surrogate decision maker is Faith Ambrose Dispo - inpatient Justifications for Admission Justifications for Admission Other Justification History of Present Illness History of Present Illness Mr Miller is a 75 year old male past medical history hyperlipidemia hypertension Parkinson's hypothyroid CHF COPD, Glaucoma, Hypothyroid, Schizophrenia, Parkinson's, and buerger's disease who presents to ED from his [facility] in [place], [place] with report of abdominal distention and 7 episodes of emesis. He does note he vomited but has not had any abdominal pain. CT abdomen pelvis with mild hydroureter on left, no stones notes. Findings concerning for rectal stool impaction with additional prominent formed stool throughout the colon. WBC 23.9, Hb 12.9, platelets 357, Na 131, K 3.9, BUN 12, Cr 1.1, glucose 166, trop 0, Albumin 3.2 On arrival patient found to have a heart rate in the 120s was started on cardizem per ED. EKG does appear to have ventricularly paced rhythm with rate 124 bpm and multiple PVCs, no ST segment elevations or TWI. Admitted for further care. 11/23/2020: Afebrile. Leukocytosis is resolved. Patient reports improvement in abdominal pain and constipation; apparently "stooled in (his) pants last night". From GI standpoint he may discharge back to his [facility]. Vascular surgery recommended continue local wound care and continue to off-load his heels; antibiotics per Infectious Disease. Patient is currently on IV Zosyn per ID for his bilateral lower extremity wounds and he is requesting to possibly discharge to [facility] tomorrow. 6-23 Monophasic waveforms bilaterally, may indicate proximal stenosis. Nausea and vomiting - no clear SBO, constipation likely etiology. Will keep NPO. IV antiemetics, fluids Sepsis - with left hydroureter and possible colitiis, will f/u empiric cultures from urine and blood and give zosyn for UTI/ GI coverage Hyponatremia - likely hypovolemic. will gently hydrate given his h/o CHF, will limit overall fluids Hydronephrosis - no pain, but patient is poor historian. Likely due to constipation and with vessel overlying ureter, will cont berman and antibiotics for now Tachycardia - Likely due to sepsis. has pacer appears to be functioning H/o v-tach - s/p ppm, also on amiodarone Hyperlipidemia - on statin Hypertension - BP low, likely autonomic dysfunction possibly associated with parkinson disease Hypothyroid - on levothyroxine 50mcg daily CHF - diastolic per SNF records. No BB noted, likely cannot tolerate due to low BP COPD - prn nebs Glaucoma - eye drops Schizophrenia - on risperidal 1mg and olanzapine 10mg QHS Parkinson's - on sinemet Buerger's disease- no smoking Urinary retention - has chronic berman catheter changed monthly. Bilateral foot wounds - chronic, will have wound care to see FEN -REG DIET PPX - heparin Suspect active erosions along the lateral aspect of the fifth metatarsal head/neck on the left greater than right. An erosion of the left first distal phalangeal tuft may not be acute. Correlate for active infection. CODE - FULL. Surrogate decision maker is Faith Ambrose Dispo - inpatient CONSULT VASCULAR SURGERY, ID Vitals/I&O Vitals/I&O: Vital Signs Date Time Temp Pulse Resp B/P (MAP) Pulse Ox O2 Delivery O2 Flow Rate FiO2 11/23/20 11:41 Room Air 11/23/20 11:01 97.8 75 20 105/54 (71) 96 97.8 I & O 11/22/20 11/22/20 11/23/20 14:59 22:59 06:59 Intake Total 240 ml 440 ml 200 ml Output Total 950 ml 1500 ml 2050 ml Balance -710 ml -1060 ml -1850 ml Physical Exam Physical Exam: Physical Exam General: Alert, Cooperative, No acute distress HEENT: Atraumatic, PERRLA, EOMI, Mucous membr. moist/pink Lungs: Clear to auscultation, Normal air movement Heart: S1S2, RRR, no thrills, no rubs Abdomen: Normal bowel sounds, No hepatosplenomegaly, No masses, Other (distended) Extremities: No clubbing, No cyanosis, No edema, Normal pulses, No tenderness/swelling Skin: Other (Bilateral foot wounds, gluteal redness) Neuro: Sensation intact, Cranial nerves 3-12 NL, Reflexes 2+ Psych/Mental Status: Other (Confused) both feet, toes with chronic wasting toes with onychomycosis, ulcers General: Alert, Cooperative, No acute distress, Other (hallucinating , talking to self) Heart: Regular rate Lungs: Clear Abdomen: Normal bowel sounds, No hepatosplenomegaly, No masses, Other (distended) Extremities: No clubbing, No cyanosis, No edema, Normal pulses, No tenderness/swelling Skin: Other (Bilateral foot wounds, bilateral [place] boots, gluteal redness) Labs Labs: Laboratory Tests Test 11/22/20 20:03 White Blood Count 7.7 x10^3/uL (4.0-11.0) Red Blood Count 3.74 x10^6/uL (4.30-5.70) Hemoglobin 10.8 g/dL (13.0-17.5) Hematocrit 32.4 % (39.0-53.0) Mean Corpuscular Volume 87 fL (79-100) Mean Corpuscular Hemoglobin 29 pg (25-35) Mean Corpuscular Hemoglobin Concent 33 g/dL (31-37) Red Cell Distribution Width 17.3 % (11.5-14.5) Platelet Count 308 x10^3/uL (140-400) Neutrophils (%) (Auto) 72 % (31-73) Lymphocytes (%) (Auto) 17 % (24-48) Monocytes (%) (Auto) 6 % (0-9) Eosinophils (%) (Auto) 4 % (0-3) Basophils (%) (Auto) 1 % (0-3) Neutrophils # (Auto) 5.6 x10^3/uL (1.8-7.7) Lymphocytes # (Auto) 1.3 x10^3/uL (1.0-4.8) Monocytes # (Auto) 0.5 x10^3/uL (0.0-1.1) Eosinophils # (Auto) 0.3 x10^3/uL (0.0-0.7) Basophils # (Auto) 0.0 x10^3/uL (0.0-0.2) Procalcitonin < 0.10 ng/mL (0.00-0.10) Assessment and Plan Assessmemt and Plan Problems Medical Problems: (1) Leukocytosis Status: Acute (2) Nausea & vomiting Status: Acute Comment Review of Relevant I have reviewed the following items jeremy (where applicable) has been applied. Justifications for Admission Other Justification NOMAN TAVARES MD Nov 23, 2020 12:36
--- NOTE | 2020-11-23 12:41 | PDOC ---
Infectious Disease Note Vital Signs: Vital Signs Vital Signs Date Time Temp Pulse Resp B/P (MAP) Pulse Ox O2 Delivery O2 Flow Rate FiO2 11/23/20 11:41 Room Air 11/23/20 11:01 97.8 75 20 105/54 (71) 96 97.8 Physical Exam: PHYSICAL EXAM Physical Exam General: Alert, Cooperative, No acute distress HEENT: Atraumatic, PERRLA, EOMI, Mucous membr. moist/pink Lungs: Clear to auscultation, Normal air movement Heart: S1S2, RRR, no thrills, no rubs Abdomen: Normal bowel sounds, No hepatosplenomegaly, No masses, Other (disten ded) Extremities: No clubbing, No cyanosis, No edema, Normal pulses, No tenderness/swelling Skin: Other (Bilateral foot wounds, gluteal redness) Neuro: Sensation intact, Cranial nerves 3-12 NL, Reflexes 2+ Psych/Mental Status: Other (Confused) both feet, toes with chronic wasting toes with onychomycosis, ulcers Medications: Inpatient Meds: Medications reviewed. Labs: Lab Laboratory Tests Test 11/22/20 20:03 White Blood Count 7.7 x10^3/uL (4.0-11.0) Red Blood Count 3.74 x10^6/uL (4.30-5.70) Hemoglobin 10.8 g/dL (13.0-17.5) Hematocrit 32.4 % (39.0-53.0) Mean Corpuscular Volume 87 fL (79-100) Mean Corpuscular Hemoglobin 29 pg (25-35) Mean Corpuscular Hemoglobin Concent 33 g/dL (31-37) Red Cell Distribution Width 17.3 % (11.5-14.5) Platelet Count 308 x10^3/uL (140-400) Neutrophils (%) (Auto) 72 % (31-73) Lymphocytes (%) (Auto) 17 % (24-48) Monocytes (%) (Auto) 6 % (0-9) Eosinophils (%) (Auto) 4 % (0-3) Basophils (%) (Auto) 1 % (0-3) Neutrophils # (Auto) 5.6 x10^3/uL (1.8-7.7) Lymphocytes # (Auto) 1.3 x10^3/uL (1.0-4.8) Monocytes # (Auto) 0.5 x10^3/uL (0.0-1.1) Eosinophils # (Auto) 0.3 x10^3/uL (0.0-0.7) Basophils # (Auto) 0.0 x10^3/uL (0.0-0.2) Procalcitonin < 0.10 ng/mL (0.00-0.10) Objective: Assessment: Patient seen and examined Consult dictated Plan: Plan of Care Thank you DONELL DUVAL MD Nov 23, 2020 12:41
[2020-11-23 15:00] VITALS: BP 96/49
[2020-11-23 16:48] LABS: BILIRUBIN,URINE NEGATIVE (NEG); COLOR,URINE YELLOW; NITRITE,URINE NEGATIVE (NEG); PROTEIN,URINE NEGATIVE (NEG-TRACE)
--- NOTE | 2020-11-23 16:59 | NUR ---
Wound Care: Attempted to see patient again today re: wound care. Dressings have been changed already with Betadine and calcium alginate and kerlix. Patient wearing bilateral heel medix. RN stated she was able to picture wounds today and they are minimal and appear stable.
[2020-11-23 17:01] LABS: CLARITY,URINE CLEAR
[2020-11-23 17:02] LABS: BACTERIA,URINE 0 /HPF (0-FEW); RBC,URINE 0 /HPF (0-2); WBC,URINE OCC /HPF (0-4)
[2020-11-23 19:00] VITALS: BP 110/55
[2020-11-23 23:00] VITALS: BP 98/56
--- NOTE | 2020-11-24 01:30 | CONS ---
DATE OF CONSULTATION: 11/23/2020 REFERRING PHYSICIAN: Dr. Reyes. REASON FOR CONSULTATION: Possible toe infection. HISTORY OF PRESENT ILLNESS: A 75-year-old male with history of hypertension, hyperlipidemia, Parkinson's, hypothyroidism, CHF, COPD, halfway resident, who was brought to the ER with complaints of abdominal distention, nausea and vomiting. Prior to admission, the patient's white count was 23.9. He was febrile, tachycardic. CT of the abdomen and pelvis showed rectal stool impaction with additional prominent formed stools, mild left hydroureteronephrosis. The patient was started on Zosyn for wounds. He underwent a bilateral lower extremity x-rays which showed suspected acute erosions along the lateral aspect of the fifth metatarsal head and neck on the left greater than the right and erosion on the left first distal phalangeal tuft, may not be acute. The patient underwent Doppler arterial ultrasound which showed nonvisualization of the distal left posterior tibial artery, may relate to occlusion, monophasic waveforms bilaterally, may indicate proximal stenosis, moderate atheromatous plaque. The patient is currently on Zosyn. Vascular Surgery has evaluated the patient. The patient is hungry and wants to eat. He denies any further nausea, vomiting, diarrhea, abdominal pain. The patient is wheelchair bound at the facility. He says he has had wounds in his foot for a long time. PAST MEDICAL HISTORY: Parkinson's, hyperlipidemia, hypertension, hypothyroidism, CHF, COPD, glaucoma, hypothyroidism, schizophrenia, Parkinson's, Buerger's disease, halfway resident. SOCIAL HISTORY: Denies smoking, EtOH, or illicit drug use. CURRENT MEDICATIONS: Zosyn. Other medications reviewed in medication list. ALLERGIES: METHYLPARABEN, PHENAZOPYRIDINE. REVIEW OF SYSTEMS: Limited, but negative except for above in HPI. PHYSICAL EXAMINATION: VITAL SIGNS: Temperature 97.8, pulse 75, respiratory rate 20, blood pressure 105/54, oxygen saturation 96% on room air. GENERAL: Alert, oriented x 3 male, lying in bed comfortably, in no acute distress. HEENT: Normocephalic, atraumatic. Anicteric. Oral mucosa moist. Poor dentition. NECK: Supple. LUNGS: Clear. HEART: S1, S2. No murmurs. ABDOMEN: Soft, nontender, nondistended. GENITOURINARY: Bueno in place. EXTREMITIES: No edema, no cyanosis. DERMATOLOGIC: Bilateral lower extremity wound pictures noted. The patient has bilateral hammertoes, ulcerations superficial with some discoloration, minimal erythema. No gross purulence is noted. NEUROLOGIC: Alert, awake. PSYCHIATRY: Somewhat anxious. LABORATORY DATA: WBC 7.7, was 23.9. Hemoglobin 10.8, hematocrit 32.4, platelets 308. Sodium 137, potassium 3.3, chloride 104, bicarbonate 24, BUN 8, creatinine 0.9, glucose 68. Troponin normal. Albumin 2.4. Procalcitonin less than 0.10. IMAGING: Foot x-ray as above. Duplex lower extremity arterial as above. CT abdomen and pelvis as above. IMPRESSION: 1. Multiple bilateral chronic nonhealing wounds. 2. Peripheral arterial disease. 3. Leukocytosis, likely reactive, now resolved. 4. Nausea and vomiting on admission, likely from stool impaction. 5. Mild left hydronephrosis and proximal hydroureter with mild obstruction. 6. Urinary retention, Bueno in place. 7. Anemia. 8. History of being on hospice outside the hospital. RECOMMENDATIONS: 1. Continue local wound care. 2. Offload. 3. Continue Zosyn for now. 4. Leukocytosi unlikely not from wound infection. 5. Add Doxycycline and micafungin. 6. Continue supportive care. 7. It appears the patient was on hospice outside the hospital. Discussed with RN. Thank you for consulting Infectious Disease to participate in this patient's care. If you have any questions, do not hesitate to contact me. Discussed with nursing staff. EUGENE/AZUCENA/JAVIER DR: Randall TID: [id number] [facility]
[2020-11-24] MEDS: PIPERACILLIN/TAZOBACTAM 3.375 GM in IV NORMAL SALINE 50ML 50 ML IV SCH ×4 (05:36→23:04)
[2020-11-24] MEDS: LEVOTHYROXINE 50 MCG TABLET PO SCH (05:43)
[2020-11-24] MEDS: PANTOPRAZOLE IV PUSH 40 MG VIAL. IVP SCH (05:43)
[2020-11-24] MEDS: fentaNYL PF VIAL 100 MCG/2 ML VIAL IVP PRN ×2 (05:44→17:42)
[2020-11-24] MEDS: HEPARIN for SUB-Q USE 5,000 UNIT/ML VIAL. SQ SCH ×3 (06:03→21:31)
[2020-11-24 07:00] VITALS: BP 90/49
[2020-11-24] MEDS: POLYETHYLENE GLYCOL 3350 17 GM PACKET. PO SCH ×2 (08:24→21:16)
[2020-11-24] MEDS: AMIODARONE HCL 200 MG TABLET. PO SCH (08:24)
[2020-11-24] MEDS: ASCORBIC ACID 500 MG TABLET PO SCH (09:18)
[2020-11-24] MEDS: ASPIRIN ENTERIC COATED 81 MG TABLET.DR. PO SCH (09:18)
[2020-11-24] MEDS: risperiDONE 1 MG TABLET. PO SCH ×2 (09:18→21:16)
[2020-11-24] MEDS: CARBIDOPA/LEVODOPA 10/100MG TABLET PO SCH ×2 (09:18→21:16)
[2020-11-24] MEDS: MULTIVITAMIN with MINERAL TABLET. PO SCH (09:18)
[2020-11-24] MEDS: POTASSIUM CHLORIDE 20 MEQ TABLET.ER. PO SCH (09:18)
[2020-11-24] MEDS: DORZOLAMIDE 2% OPHTH SOLUTION 10ML BOTTLE. OS SCH ×3 (09:18→21:17)
[2020-11-24] MEDS: MICAFUNGIN 100 MG in IV DEXTROSE 5% 100ML 100 ML IV SCH (09:19)
--- NOTE | 2020-11-24 10:57 | NUR ---
Dr. Chahal paged re: BP 86/45, pt assymptomatic.
[2020-11-24 11:00] VITALS: BP 86/45
--- NOTE | 2020-11-24 11:05 | NUR ---
Dr. Chahal returned call re: BP 86/45, telephone orders received.
[2020-11-24] MEDS ORDERED: IV NORMAL SALINE 1000ML BAG 1,000 ML IV ONE (11:15)
--- NOTE | 2020-11-24 11:30 | PDOC ---
Infectious Disease Note Vital Signs: Vital Signs Vital Signs Date Time Temp Pulse Resp B/P (MAP) Pulse Ox O2 Delivery O2 Flow Rate FiO2 11/24/20 11:00 98.5 78 18 86/45 (59) 94 Room Air 98.5 Physical Exam: PHYSICAL EXAM GENERAL: Alert, oriented x 3 male, lying in bed comfortably, in no acute distress. HEENT: Normocephalic, atraumatic. Anicteric. Oral mucosa moist. Poor dentition. NECK: Supple. LUNGS: Clear. HEART: S1, S2. No murmurs. ABDOMEN: Soft, nontender, nondistended. GENITOURINARY: Bueno in place. EXTREMITIES: No edema, no cyanosis. DERMATOLOGIC: Bilateral lower extremity wound pictures noted. The patient has bilateral hammertoes, ulcerations superficial with some discoloration, minimal erythema. No gross purulence is noted. Yeast present NEUROLOGIC: Alert, awake. PSYCHIATRY: Somewhat anxious. Medications: Inpatient Meds: Medications reviewed. Labs: Lab Laboratory Tests Test 11/23/20 16:25 Urine Collection Type Unknown Urine Color Yellow Urine Clarity Clear Urine pH 8.0 (<5.0-8.0) Urine Specific [place] 1.010 (1.000-1.030) Urine Protein Negative mg/dL (NEG-TRACE) Urine Glucose (UA) Negative mg/dL (NEG) Urine Ketones (Stick) Negative mg/dL (NEG) Urine Blood Negative (NEG) Urine Nitrite Negative (NEG) Urine Bilirubin Negative (NEG) Urine Urobilinogen Dipstick 1.0 mg/dL (0.2 mg/dL) Urine Leukocyte Esterase Trace (NEG) Urine RBC 0 /HPF (0-2) Urine WBC Occ /HPF (0-4) Urine Bacteria 0 /HPF (0-FEW) Objective: Assessment: 1. Multiple bilateral chronic nonhealing wounds. 2. Peripheral arterial disease. 3. Leukocytosis, likely reactive, now resolved. 4. Nausea and vomiting on admission, likely from stool impaction. 5. Mild left hydronephrosis and proximal hydroureter with mild obstruction. 6. Urinary retention, Bueno in place. 7. Anemia. 8. History of being on hospice outside the hospital. Plan: Plan of Care 1. Continue local wound care. 2. Offload. 3. Continue Zosyn for now. 4. Leukocytosis unlikely not from wound infection. 5. Continue doxycycline and micafungin. 6. Continue supportive care. 7. It appears the patient was on hospice outside the hospital. 8. Vascular input noted Discussed with RN. DONELL DUVAL MD Nov 24, 2020 11:30
--- NOTE | 2020-11-24 13:47 | PDOC ---
[employer] PROGRESS NOTE Date of Service DOS: DATE: 11/24/20 TIME: 13:45 Chief Complaint Chief Complaint Assessment/Plan Assessment/Plan A/P: Nausea and vomiting - no clear SBO, constipation likely etiology. Will keep NPO. IV antiemetics, fluids Sepsis - with left hydroureter and possible colitiis, will f/u empiric cultures from urine and blood and give zosyn for UTI/ GI coverage Hyponatremia - likely hypovolemic. will gently hydrate given his h/o CHF, will limit overall fluids Hydronephrosis - no pain, but patient is poor historian. Likely due to constipation and with vessel overlying ureter, will cont berman and antibiotics for now Tachycardia - Likely due to sepsis. has pacer appears to be functioning H/o v-tach - s/p ppm, also on amiodarone Hyperlipidemia - on statin Hypertension - BP low, likely autonomic dysfunction possibly associated with parkinson disease Hypothyroid - on levothyroxine 50mcg daily CHF - diastolic per SNF records. No BB noted, likely cannot tolerate due to low BP COPD - prn nebs Glaucoma - eye drops Schizophrenia - on risperidal 1mg and olanzapine 10mg QHS Parkinson's - on sinemet Buerger's disease- no smoking Urinary retention - has chronic berman catheter changed monthly. Bilateral foot wounds - chronic, will have wound care to see FEN - NPO PPX - heparin CODE - FULL. Surrogate decision maker is Faith Ambrose Dispo - inpatient Justifications for Admission Justifications for Admission Other Justification History of Present Illness History of Present Illness Mr Miller is a 75 year old male past medical history hyperlipidemia hypertension Parkinson's hypothyroid CHF COPD, Glaucoma, Hypothyroid, Schizophrenia, Parkinson's, and buerger's disease who presents to ED from his [facility] in [place], [place] with report of abdominal distention and 7 episodes of emesis. He does note he vomited but has not had any abdominal pain. CT abdomen pelvis with mild hydroureter on left, no stones notes. Findings concerning for rectal stool impaction with additional prominent formed stool throughout the colon. WBC 23.9, Hb 12.9, platelets 357, Na 131, K 3.9, BUN 12, Cr 1.1, glucose 166, trop 0, Albumin 3.2 On arrival patient found to have a heart rate in the 120s was started on cardizem per ED. EKG does appear to have ventricularly paced rhythm with rate 124 bpm and multiple PVCs, no ST segment elevations or TWI. Admitted for further care. 11/24/2020: Afebrile. Discussed with RN, MAP 59 today; provide 2 L normal saline bolus. Will obtain blood cultures. Continue micafungin and Zosyn, per ID. 11/23/2020: Afebrile. Leukocytosis is resolved. Patient reports improvement in abdominal pain and constipation; apparently "stooled in (his) pants last night". From GI standpoint he may discharge back to his [place] SNF. Vascular surgery recommended continue local wound care and continue to off-load his heels; antibiotics per Infectious Disease. Patient is currently on IV Zosyn per ID for his bilateral lower extremity wounds and he is requesting to possibly discharge to [place] tomorrow. 6 Monophasic waveforms bilaterally, may indicate proximal stenosis. Nausea and vomiting - no clear SBO, constipation likely etiology. Will keep NPO. IV antiemetics, fluids Sepsis - with left hydroureter and possible colitiis, will f/u empiric cultures from urine and blood and give zosyn for UTI/ GI coverage Hyponatremia - likely hypovolemic. will gently hydrate given his h/o CHF, will limit overall fluids Hydronephrosis - no pain, but patient is poor historian. Likely due to constipation and with vessel overlying ureter, will cont berman and antibiotics for now Tachycardia - Likely due to sepsis. has pacer appears to be functioning H/o v-tach - s/p ppm, also on amiodarone Hyperlipidemia - on statin Hypertension - BP low, likely autonomic dysfunction possibly associated with parkinson disease Hypothyroid - on levothyroxine 50mcg daily CHF - diastolic per SNF records. No BB noted, likely cannot tolerate due to low BP COPD - prn nebs Glaucoma - eye drops Schizophrenia - on risperidal 1mg and olanzapine 10mg QHS Parkinson's - on sinemet Buerger's disease- no smoking Urinary retention - has chronic berman catheter changed monthly. Bilateral foot wounds - chronic, will have wound care to see FEN -REG DIET PPX - heparin Suspect active erosions along the lateral aspect of the fifth metatarsal head/neck on the left greater than right. An erosion of the left first distal phalangeal tuft may not be acute. Correlate for active infection. CODE - FULL. Surrogate decision maker is Faith Ambrose Dispo - inpatient CONSULT VASCULAR SURGERY, ID Vitals/I&O Vitals/I&O: Vital Signs Date Time Temp Pulse Resp B/P (MAP) Pulse Ox O2 Delivery O2 Flow Rate FiO2 11/24/20 11:00 98.5 78 18 86/45 (59) 94 Room Air 98.5 I & O 11/23/20 11/23/20 11/24/20 15:00 23:00 07:00 Output Total 1000 ml 2600 ml Balance -1000 ml -2600 ml Physical Exam Physical Exam: GENERAL: Alert, oriented x 3 male, lying in bed comfortably, in no acute distress. HEENT: Normocephalic, atraumatic. Anicteric. Oral mucosa moist. Poor dentition. NECK: Supple. LUNGS: Clear. HEART: S1, S2. No murmurs. ABDOMEN: Soft, nontender, nondistended. GENITOURINARY: Berman in place. EXTREMITIES: No edema, no cyanosis. DERMATOLOGIC: Bilateral lower extremity wound pictures noted. The patient has bilateral hammertoes, ulcerations superficial with some discoloration, minimal erythema. No gross purulence is noted. Yeast present NEUROLOGIC: Alert, awake. PSYCHIATRY: Somewhat anxious. General: Alert, Cooperative, No acute distress, Other (hallucinating , talking to self) Heart: Regular rate Lungs: Clear Abdomen: Normal bowel sounds, No hepatosplenomegaly, No masses, Other (distended) Extremities: No clubbing, No cyanosis, No edema, Normal pulses, No tenderness/swelling Skin: Other (Bilateral foot wounds, bilateral Rooke boots, gluteal redness) Labs Labs: Laboratory Tests Test 11/23/20 16:25 Urine Collection Type Unknown Urine Color Yellow Urine Clarity Clear Urine pH 8.0 (<5.0-8.0) Urine Specific [place] 1.010 (1.000-1.030) Urine Protein Negative mg/dL (NEG-TRACE) Urine Glucose (UA) Negative mg/dL (NEG) Urine Ketones (Stick) Negative mg/dL (NEG) Urine Blood Negative (NEG) Urine Nitrite Negative (NEG) Urine Bilirubin Negative (NEG) Urine Urobilinogen Dipstick 1.0 mg/dL (0.2 mg/dL) Urine Leukocyte Esterase Trace (NEG) Urine RBC 0 /HPF (0-2) Urine WBC Occ /HPF (0-4) Urine Bacteria 0 /HPF (0-FEW) Assessment and Plan Assessmemt and Plan Problems Medical Problems: (1) Leukocytosis Status: Acute (2) Nausea & vomiting Status: Acute Comment Review of Relevant I have reviewed the following items jeremy (where applicable) has been applied. Medications: Current Medications Medications (Trade) Dose Ordered Sig/Wong Route PRN Reason Start Time Stop Time Status Last Admin Dose Admin Micafungin Sodium 100 mg/Dextrose 100 ml @ 100 mls/hr Q24H IV 11/24/20 08:00 11/24/20 09:19 Sodium Chloride 1,000 ml @ 2,000 mls/hr 1X ONCE IV 11/24/20 11:15 11/24/20 11:44 DC 11/24/20 11:18 Justifications for Admission Other Justification NOMAN TAVARES MD Nov 24, 2020 13:47
[2020-11-24 15:00] VITALS: BP 68/44
[2020-11-24 19:00] VITALS: BP 104/60
[2020-11-24] MEDS: LACTOBACILLUS RHAMNOSUS GG 1 CAPSULE. PO SCH (21:16)
[2020-11-24 23:00] VITALS: BP 118/56
[2020-11-25 03:00] VITALS: BP 103/55
[2020-11-25] MEDS: LEVOTHYROXINE 50 MCG TABLET PO SCH (05:26)
[2020-11-25] MEDS: PANTOPRAZOLE IV PUSH 40 MG VIAL. IVP SCH (05:26)
[2020-11-25] MEDS: PIPERACILLIN/TAZOBACTAM 3.375 GM in IV NORMAL SALINE 50ML 50 ML IV SCH ×3 (05:27→18:36)
[2020-11-25] MEDS: HEPARIN for SUB-Q USE 5,000 UNIT/ML VIAL. SQ SCH ×3 (05:31→22:04)
[2020-11-25] MEDS: fentaNYL PF VIAL 100 MCG/2 ML VIAL IVP PRN ×3 (06:11→23:01)
[2020-11-25 07:00] VITALS: BP 106/57
--- NOTE | 2020-11-25 08:14 | PDOC ---
Infectious Disease Note Subjective: Subjective Patient resting quietly No fevers, nausea, vomiting, diarrhea reported Discussed with nursing staff Vital Signs: Vital Signs Vital Signs Date Time Temp Pulse Resp B/P (MAP) Pulse Ox O2 Delivery O2 Flow Rate FiO2 11/25/20 07:42 Room Air 11/25/20 07:00 98.2 74 18 106/57 (73 93 98.2 Physical Exam: PHYSICAL EXAM GENERAL: Alert, oriented x 3 male, lying in bed comfortably, in no acute distress. HEENT: Normocephalic, atraumatic. Anicteric. Oral mucosa moist. Poor dentition. NECK: Supple. LUNGS: Clear. HEART: S1, S2. No murmurs. ABDOMEN: Soft, nontender, nondistended. GENITOURINARY: Bueno in place. EXTREMITIES: No edema, no cyanosis. DERMATOLOGIC: Bilateral lower extremity wound pictures noted. The patient has bilateral hammertoes, ulcerations superficial with some discoloration, minimal erythema. No gross purulence is noted. Yeast present NEUROLOGIC: Alert, awake. PSYCHIATRY: Somewhat anxious. Medications: Inpatient Meds: Medications reviewed. Objective: Assessment: 1. Multiple bilateral chronic nonhealing wounds. 2. Peripheral arterial disease. 3. Leukocytosis, likely reactive, now resolved. 4. Nausea and vomiting on admission, likely from stool impaction. 5. Mild left hydronephrosis and proximal hydroureter with mild obstruction. 6. Urinary retention, Bueno in place. 7. Anemia. 8. History of being on hospice outside the hospital. Plan: Plan of Care 1. Continue local wound care. Vascular input noted 2. Offload. 3. Continue Zosyn , micafungin and doxycycline 4. Leukocytosis unlikely not from wound infection. 5. Maintain aspiration precautions Discussed with DONELL PENN MD Nov 25, 2020 08:14
[2020-11-25] MEDS: POTASSIUM CHLORIDE 20 MEQ TABLET.ER. PO SCH (09:12)
[2020-11-25] MEDS: ASCORBIC ACID 500 MG TABLET PO SCH (09:12)
[2020-11-25] MEDS: MULTIVITAMIN with MINERAL TABLET. PO SCH (09:12)
[2020-11-25] MEDS: ASPIRIN ENTERIC COATED 81 MG TABLET.DR. PO SCH (09:12)
[2020-11-25] MEDS: POLYETHYLENE GLYCOL 3350 17 GM PACKET. PO SCH ×2 (09:12→22:00)
[2020-11-25] MEDS: MICAFUNGIN 100 MG in IV DEXTROSE 5% 100ML 100 ML IV SCH (09:13)
[2020-11-25] MEDS: AMIODARONE HCL 200 MG TABLET. PO SCH (09:13)
[2020-11-25] MEDS: CARBIDOPA/LEVODOPA 10/100MG TABLET PO SCH ×2 (09:13→22:00)
[2020-11-25] MEDS: risperiDONE 1 MG TABLET. PO SCH ×2 (09:13→22:00)
[2020-11-25] MEDS: LACTOBACILLUS RHAMNOSUS GG 1 CAPSULE. PO SCH ×2 (09:13→22:00)
[2020-11-25] MEDS: DORZOLAMIDE 2% OPHTH SOLUTION 10ML BOTTLE. OS SCH ×3 (09:14→22:07)
[2020-11-25 11:00] VITALS: BP 107/61
--- NOTE | 2020-11-25 14:22 | PDOC ---
[employer] PROGRESS NOTE Date of Service DOS: DATE: 11/25/20 TIME: 14:20 Chief Complaint Chief Complaint Assessment/Plan Assessment/Plan A/P: Nausea and vomiting - no clear SBO, constipation likely etiology. Will keep NPO. IV antiemetics, fluids Sepsis - with left hydroureter and possible colitiis, will f/u empiric cultures from urine and blood and give zosyn for UTI/ GI coverage Hyponatremia - likely hypovolemic. will gently hydrate given his h/o CHF, will limit overall fluids Hydronephrosis - no pain, but patient is poor historian. Likely due to constipation and with vessel overlying ureter, will cont berman and antibiotics for now Tachycardia - Likely due to sepsis. has pacer appears to be functioning H/o v-tach - s/p ppm, also on amiodarone Hyperlipidemia - on statin Hypertension - BP low, likely autonomic dysfunction possibly associated with parkinson disease Hypothyroid - on levothyroxine 50mcg daily CHF - diastolic per SNF records. No BB noted, likely cannot tolerate due to low BP COPD - prn nebs Glaucoma - eye drops Schizophrenia - on risperidal 1mg and olanzapine 10mg QHS Parkinson's - on sinemet Buerger's disease- no smoking Urinary retention - has chronic berman catheter changed monthly. Bilateral foot wounds - chronic, will have wound care to see FEN - NPO PPX - heparin CODE - FULL. Surrogate decision maker is Faith Ambrose Dispo - inpatient Justifications for Admission Justifications for Admission Other Justification History of Present Illness History of Present Illness Mr Miller is a 75 year old male past medical history hyperlipidemia hypertension Parkinson's hypothyroid CHF COPD, Glaucoma, Hypothyroid, Schizophrenia, Parkinson's, and buerger's disease who presents to ED from his [facility] [employer] [facility] in [place], [place] with report of abdominal distention and 7 episodes of emesis. He does note he vomited but has not had any abdominal pain. CT abdomen pelvis with mild hydroureter on left, no stones notes. Findings concerning for rectal stool impaction with additional prominent formed stool throughout the colon. WBC 23.9, Hb 12.9, platelets 357, Na 131, K 3.9, BUN 12, Cr 1.1, glucose 166, trop 0, Albumin 3.2 On arrival patient found to have a heart rate in the 120s was started on cardizem per ED. EKG does appear to have ventricularly paced rhythm with rate 124 bpm and multiple PVCs, no ST segment elevations or TWI. Admitted for further care. 11/25/2020: Patient seen and evaluated. Afebrile, no acute events overnight. Continue Reglan, Zosyn, and micafungin, per ID. Blood culture showed no growth. Plan is to discharge to [facility] hosp[facility] when stable on oral antibiotics. Discussed with RN. 11/24/2020: Afebrile. Discussed with RN, MAP 59 today; provide 2 L normal saline bolus. Will obtain blood cultures. Continue micafungin and Zosyn, per ID. 11/23/2020: Afebrile. Leukocytosis is resolved. Patient reports improvement in abdominal pain and constipation; apparently "stooled in (his) pants last night". From GI standpoint he may discharge back to his [facility] SNF. Vascular surgery recommended continue local wound care and continue to off-load his heels; antibiotics per Infectious Disease. Patient is currently on IV Zosyn per ID for his bilateral lower extremity wounds and he is requesting to possibly dis charge to [facility] tomorrow. 6-23 Monophasic waveforms bilaterally, may indicate proximal stenosis. Nausea and vomiting - no clear SBO, constipation likely etiology. Will keep NPO. IV antiemetics, fluids Sepsis - with left hydroureter and possible colitiis, will f/u empiric cultures from urine and blood and give zosyn for UTI/ GI coverage Hyponatremia - likely hypovolemic. will gently hydrate given his h/o CHF, will limit overall fluids Hydronephrosis - no pain, but patient is poor historian. Likely due to constipation and with vessel overlying ureter, will cont berman and antibiotics for now Tachycardia - Likely due to sepsis. has pacer appears to be functioning H/o v-tach - s/p ppm, also on amiodarone Hyperlipidemia - on statin Hypertension - BP low, likely autonomic dysfunction possibly associated with parkinson disease Hypothyroid - on levothyroxine 50mcg daily CHF - diastolic per SNF records. No BB noted, likely cannot tolerate due to low BP COPD - prn nebs Glaucoma - eye drops Schizophrenia - on risperidal 1mg and olanzapine 10mg QHS Parkinson's - on sinemet Buerger's disease- no smoking Urinary retention - has chronic berman catheter changed monthly. Bilateral foot wounds - chronic, will have wound care to see FEN -REG DIET PPX - heparin Suspect active erosions along the lateral aspect of the fifth metatarsal head/neck on the left greater than right. An erosion of the left first distal phalangeal tuft may not be acute. Correlate for active infection. CODE - FULL. Surrogate decision maker is Faith Ambrose Dispo - inpatient CONSULT VASCULAR SURGERY, ID Vitals/I&O Vitals/I&O: Vital Signs Date Time Temp Pulse Resp B/P (MAP) Pulse Ox O2 Delivery O2 Flow Rate FiO2 11/25/20 11:00 97.6 77 18 107/61 (76) 97 Room Air 97.6 I & O 11/24/20 11/24/20 11/25/20 15:00 23:00 07:00 Intake Total 500 ml 900 ml Output Total 1800 ml 2950 ml Balance -1300 ml -2050 ml Physical Exam Physical Exam: DERMATOLOGIC: Bilateral lower extremity wound pictures noted. The patient has bilateral hammertoes, ulcerations superficial with some discoloration, minimal erythema. No gross purulence is noted. Yeast present General: Alert, Cooperative, No acute distress, Other (hallucinating , talking to self) Heart: Regular rate Lungs: Clear Abdomen: Normal bowel sounds, No hepatosplenomegaly, No masses, Other (distended) Extremities: No clubbing, No cyanosis, No edema, Normal pulses, No tenderness/swelling Skin: Other (Bilateral foot wounds, bilateral Rooke boots, gluteal redness) Assessment and Plan Assessmemt and Plan Problems Medical Problems: (1) Leukocytosis Status: Acute (2) Nausea & vomiting Status: Acute Comment Review of Relevant I have reviewed the following items jeremy (where applicable) has been applied. Medications: Current Medications Medications (Trade) Dose Ordered Sig/Wong Route PRN Reason Start Time Stop Time Status Last Admin Dose Admin Lactobacillus Rhamnosus (Culturelle) 1 cap BID PO 11/24/20 21:00 11/25/20 09:13 Justifications for Admission Other Justification NOMAN TAVARES MD Nov 25, 2020 14:22
[2020-11-25 15:00] VITALS: BP 95/55
[2020-11-25 19:00] VITALS: BP 115/56
[2020-11-25 23:00] VITALS: BP 105/60
[2020-11-26] MEDS: PIPERACILLIN/TAZOBACTAM 3.375 GM in IV NORMAL SALINE 50ML 50 ML IV SCH ×4 (01:26→18:00)
[2020-11-26 03:00] VITALS: BP 95/53
[2020-11-26] MEDS: LEVOTHYROXINE 50 MCG TABLET PO SCH (06:34)
[2020-11-26] MEDS: HEPARIN for SUB-Q USE 5,000 UNIT/ML VIAL. SQ SCH ×3 (06:37→22:08)
[2020-11-26 07:00] VITALS: BP 115/50
[2020-11-26 07:05] LABS: BASO % 1 % (0-3); EOS # 0.6 x10^3/uL (0.0-0.7); EOS % 7 % (0-3); HEMATOCRIT 33.7 % (39.0-53.0); HEMOGLOBIN 11.1 g/dL (13.0-17.5); LYMPH # 1.9 x10^3/uL (1.0-4.8); LYMPH % 20 % (24-48); MEAN CORPUSCULAR HEMOGLOBIN 29 pg (25-35); MEAN CORPUSCULAR HGB CONC 33 g/dL (31-37); MEAN CORPUSCULAR VOLUME 88 fL (79-100); MONO # 0.6 x10^3/uL (0.0-1.1); MONO % 6 % (0-9); NEUT % 66 % (31-73); PLATELET COUNT 310 x10^3/uL (140-400); RED BLOOD COUNT 3.83 x10^6/uL (4.30-5.70); RED CELL DISTRIBUTION WIDTH 17.6 % (11.5-14.5); WHITE BLOOD COUNT 9.1 x10^3/uL (4.0-11.0)
[2020-11-26 07:24] LABS: CALCIUM 8.7 mg/dL (8.5-10.1); POTASSIUM 4.8 mmol/L (3.5-5.1)
[2020-11-26] MEDS: fentaNYL PF VIAL 100 MCG/2 ML VIAL IVP PRN ×3 (08:55→17:59)
[2020-11-26] MEDS: LACTOBACILLUS RHAMNOSUS GG 1 CAPSULE. PO SCH ×2 (09:00→19:59)
[2020-11-26] MEDS: ASPIRIN ENTERIC COATED 81 MG TABLET.DR. PO SCH (09:00)
[2020-11-26] MEDS: risperiDONE 1 MG TABLET. PO SCH ×2 (09:00→19:59)
[2020-11-26] MEDS: CARBIDOPA/LEVODOPA 10/100MG TABLET PO SCH ×2 (09:00→19:59)
[2020-11-26] MEDS: POTASSIUM CHLORIDE 20 MEQ TABLET.ER. PO SCH (09:00)
[2020-11-26] MEDS: ASCORBIC ACID 500 MG TABLET PO SCH (09:00)
[2020-11-26] MEDS: MULTIVITAMIN with MINERAL TABLET. PO SCH (09:00)
[2020-11-26] MEDS: AMIODARONE HCL 200 MG TABLET. PO SCH (09:01)
[2020-11-26] MEDS: POLYETHYLENE GLYCOL 3350 17 GM PACKET. PO SCH ×2 (09:01→19:58)
[2020-11-26] MEDS: PANTOPRAZOLE IV PUSH 40 MG VIAL. IVP SCH (09:01)
[2020-11-26] MEDS: DORZOLAMIDE 2% OPHTH SOLUTION 10ML BOTTLE. OS SCH ×3 (09:01→20:00)
[2020-11-26] MEDS: MICAFUNGIN 100 MG in IV DEXTROSE 5% 100ML 100 ML IV SCH (09:02)
--- NOTE | 2020-11-26 10:59 | PDOC ---
PROGRESS NOTES Date of Service: DATE: 11/26/20 TIME: 10:59 Chief Complaint Chief Complaint Assessment/Plan Assessment/Plan A/P: Nausea and vomiting - no clear SBO, constipation likely etiology. Will keep NPO. IV antiemetics, fluids Sepsis - with left hydroureter and possible colitiis, will f/u empiric cultures from urine and blood and give zosyn for UTI/ GI coverage Hyponatremia - likely hypovolemic. will gently hydrate given his h/o CHF, will limit overall fluids Hydronephrosis - no pain, but patient is poor historian. Likely due to constipation and with vessel overlying ureter, will cont berman and antibiotics for now Tachycardia - Likely due to sepsis. has pacer appears to be functioning H/o v-tach - s/p ppm, also on amiodarone Hyperlipidemia - on statin Hypertension - BP low, likely autonomic dysfunction possibly associated with parkinson disease Hypothyroid - on levothyroxine 50mcg daily CHF - diastolic per SNF records. No BB noted, likely cannot tolerate due to low BP COPD - prn nebs Glaucoma - eye drops Schizophrenia - on risperidal 1mg and olanzapine 10mg QHS Parkinson's - on sinemet Buerger's disease- no smoking Urinary retention - has chronic berman catheter changed monthly. Bilateral foot wounds - chronic, will have wound care to see FEN - NPO PPX - heparin CODE - FULL. Surrogate decision maker is Faith Ambrose Dispo - inpatient Justifications for Admission Justifications for Admission Other Justification History of Present Illness History of Present Illness Mr Miller is a 75 year old male past medical history hyperlipidemia hypertension Parkinson's hypothyroid CHF COPD, Glaucoma, Hypothyroid, Schizophrenia, Parkinson's, and buerger's disease who presents to ED from his [facility] in [place], [place] with report of abdominal distention and 7 episodes of emesis. He does note he vomited but has not had any abdominal pain. CT abdomen pelvis with mild hydroureter on left, no stones notes. Findings concerning for rectal stool impaction with additional prominent formed stool throughout the colon. WBC 23.9, Hb 12.9, platelets 357, Na 131, K 3.9, BUN 12, Cr 1.1, glucose 166, trop 0, Albumin 3.2 On arrival patient found to have a heart rate in the 120s was started on cardizem per ED. EKG does appear to have ventricularly paced rhythm with rate 124 bpm and multiple PVCs, no ST segment elevations or TWI. Admitted for further care. 11/25/2020: Patient seen and evaluated. Afebrile, no acute events overnight. Continue Reglan, Zosyn, and micafungin, per ID. Blood culture showed no growth. Plan is to discharge to [facility] when stable on oral antibiotics. Discussed with RN. 11/24/2020: Afebrile. Discussed with RN, MAP 59 today; provide 2 L normal saline bolus. Will obtain blood cultures. Continue micafungin and Zosyn, per ID. 11/23/2020: Afebrile. Leukocytosis is resolved. Patient reports improvement in abdominal pain and constipation; apparently "stooled in (his) pants last night". From GI standpoint he may discharge back to his [facility]. Vascular surgery recommended continue local wound care and continue to off-load his heels; antibiotics per Infectious Disease. Patient is currently on IV Zosyn per ID for his bilateral lower extremity wounds and he is requesting to possibly discharge to [facility] tomorrow. 623 Monophasic waveforms bilaterally, may indicate proximal stenosis. Nausea and vomiting - no clear SBO, constipation likely etiology. Will keep NPO. IV antiemetics, fluids Sepsis - with left hydroureter and possible colitiis, will f/u empiric cultures from urine and blood and give zosyn for UTI/ GI coverage Hyponatremia - likely hypovolemic. will gently hydrate given his h/o CHF, will limit overall fluids Hydronephrosis - no pain, but patient is poor historian. Likely due to constipation and with vessel overlying ureter, will cont berman and antibiotics for now Tachycardia - Likely due to sepsis. has pacer appears to be functioning H/o v-tach - s/p ppm, also on amiodarone Hyperlipidemia - on statin Hypertension - BP low, likely autonomic dysfunction possibly associated with parkinson disease Hypothyroid - on levothyroxine 50mcg daily CHF - diastolic per SNF records. No BB noted, likely cannot tolerate due to low BP COPD - prn nebs Glaucoma - eye drops Schizophrenia - on risperidal 1mg and olanzapine 10mg QHS Parkinson's - on sinemet Buerger's disease- no smoking Urinary retention - has chronic berman catheter changed monthly. Bilateral foot wounds - chronic, will have wound care to see FEN -REG DIET PPX - heparin Suspect active erosions along the lateral aspect of the fifth metatarsal head/neck on the left greater than right. An erosion of the left first distal phalangeal tuft may not be acute. Correlate for active infection. CODE - FULL. Surrogate decision maker is Faith Ambrose Dispo - inpatient CONSULT VASCULAR SURGERY, ID [id number] Continue IV Zosyn , micafungin and doxycycline Monophasic waveforms bilaterally, may indicate proximal stenosis. Nausea and vomiting - no clear SBO, constipation likely etiology. Will keep NPO. IV antiemetics, fluids Sepsis - with left hydroureter and possible colitiis, will f/u empiric cultures from urine and blood and give zosyn for UTI/ GI coverage Hyponatremia - likely hypovolemic. will gently hydrate given his h/o CHF, will limit overall fluids Hydronephrosis - no pain, but patient is poor historian. Likely due to constipation and with vessel overlying ureter, will cont berman and antibiotics for now Tachycardia - Likely due to sepsis. has pacer appears to be functioning H/o v-tach - s/p ppm, also on amiodarone Hyperlipidemia - on statin Hypertension - BP low, likely autonomic dysfunction possibly associated with parkinson disease Hypothyroid - on levothyroxine 50mcg daily CHF - diastolic per SNF records. No BB noted, likely cannot tolerate due to low BP COPD - prn nebs Glaucoma - eye drops Schizophrenia - on risperidal 1mg and olanzapine 10mg QHS Parkinson's - on sinemet Buerger's disease- no smoking Urinary retention - has chronic berman catheter changed monthly. Bilateral foot wounds - chronic, will have wound care to see FEN -REG DIET PPX - heparin Suspect active erosions along the lateral aspect of the fifth metatarsal head/neck on the left greater than right. An erosion of the left first distal phalangeal tuft may not be acute. Correlate for active infection. CODE - FULL. Surrogate decision maker is Faith Ambrose Dispo - inpatient CONSULT VASCULAR SURGERY, ID Vitals Vitals Vital Signs Date Time Temp Pulse Resp B/P (MAP) Pulse Ox O2 Delivery O2 Flow Rate FiO2 11/26/20 10:27 Room Air 11/26/20 09:01 78 115/50 11/26/20 07:00 97.3 18 95 97.3 Physical Exam Physical Exam DERMATOLOGIC: Bilateral lower extremity wound pictures noted. The patient has bilateral hammertoes, ulcerations superficial with some discoloration, minimal erythema. No gross purulence is noted. Yeast present General: Alert, Cooperative, No acute distress, Other (hallucinating , talking to self) Heart: Regular rate Lungs: Clear Abdomen: Normal bowel sounds, No hepatosplenomegaly, No masses, Other (distended) Extremities: No clubbing, No cyanosis, No edema, Normal pulses, No tenderness/swelling Skin: Other (Bilateral foot wounds, bilateral Rooke boots, gluteal redness) Labs LABS PDESC: AMINATA PEREIRA MD,DONELL WALLER,JEREMY OROZCO,MAYO Wahl MD ORDERED: BCULT Procedure Result BLOOD CULTURE Preliminary NO GROWTH AFTER 1 DAY EXAM: Bilateral feet, 3 views. HISTORY: Peripheral vascular disease, toe ulcers. COMPARISON: None. FINDINGS: On the right, the fifth metacarpophalangeal joint is dislocated dorsally. There are hammertoe deformities of the second through fourth digits. There is either chronic fracture/post surgical deformity or an erosion of the lateral cortex of the fifth metatarsal neck. No fractures are identified. Midfoot alignment is maintained. Atherosclerotic calcifications are noted. On the left, there is erosion of the first distal phalangeal tuft. No clear additional tuft erosions are appreciated, though the toes are turned under. There is also a large erosion along the lateral aspect of the fifth metatarsal head. No fractures are identified. Midfoot alignment is maintained. IMPRESSION: 1. Suspect active erosions along the lateral aspect of the fifth metatarsal head/neck on the left greater than right. 2. An erosion of the left first distal phalangeal tuft may not be acute. Correlate for active infection. Electronically signed by: Jorge Winter MD (11/21/2020 6:04 PM) [id number] DICTATED and SIGNED BY: JOSSIE WINTER MD DATE: 11/21/20 [id number] Laboratory Tests Test 11/26/20 06:30 White Blood Count 9.1 x10^3/uL (4.0-11.0) Red Blood Count 3.83 x10^6/uL (4.30-5.70) Hemoglobin 11.1 g/dL (13.0-17.5) Hematocrit 33.7 % (39.0-53.0) Mean Corpuscular Volume 88 fL (79-100) Mean Corpuscular Hemoglobin 29 pg (25-35) Mean Corpuscular Hemoglobin Concent 33 g/dL (31-37) Red Cell Distribution Width 17.6 % (11.5-14.5) Platelet Count 310 x10^3/uL (140-400) Neutrophils (%) (Auto) 66 % (31-73) Lymphocytes (%) (Auto) 20 % (24-48) Monocytes (%) (Auto) 6 % (0-9) Eosinophils (%) (Auto) 7 % (0-3) Basophils (%) (Auto) 1 % (0-3) Neutrophils # (Auto) 6.0 x10^3/uL (1.8-7.7) Lymphocytes # (Auto) 1.9 x10^3/uL (1.0-4.8) Monocytes # (Auto) 0.6 x10^3/uL (0.0-1.1) Eosinophils # (Auto) 0.6 x10^3/uL (0.0-0.7) Basophils # (Auto) 0.0 x10^3/uL (0.0-0.2) Sodium Level 136 mmol/L (136-145) Potassium Level 4.8 mmol/L (3.5-5.1) Chloride Level 103 mmol/L (98-107) Carbon Dioxide Level 24 mmol/L (21-32) Anion Gap 9 (6-14) Blood Urea Nitrogen 9 mg/dL (8-26) Creatinine 1.0 mg/dL (0.7-1.3) Estimated GFR (Cockcroft-Gault) 73.0 Glucose Level 88 mg/dL (70-99) Calcium Level 8.7 mg/dL (8.5-10.1) Assessment and Plan Assessmemt and Plan Problems Medical Problems: (1) Leukocytosis Status: Acute (2) Nausea & vomiting Status: Acute Comment Review of Relevant I have reviewed the following items jeremy (where applicable) has been applied. Labs Laboratory Tests Test 11/26/20 06:30 White Blood Count 9.1 x10^3/uL (4.0-11.0) Red Blood Count 3.83 x10^6/uL (4.30-5.70) Hemoglobin 11.1 g/dL (13.0-17.5) Hematocrit 33.7 % (39.0-53.0) Mean Corpuscular Volume 88 fL (79-100) Mean Corpuscular Hemoglobin 29 pg (25-35) Mean Corpuscular Hemoglobin Concent 33 g/dL (31-37) Red Cell Distribution Width 17.6 % (11.5-14.5) Platelet Count 310 x10^3/uL (140-400) Neutrophils (%) (Auto) 66 % (31-73) Lymphocytes (%) (Auto) 20 % (24-48) Monocytes (%) (Auto) 6 % (0-9) Eosinophils (%) (Auto) 7 % (0-3) Basophils (%) (Auto) 1 % (0-3) Neutrophils # (Auto) 6.0 x10^3/uL (1.8-7.7) Lymphocytes # (Auto) 1.9 x10^3/uL (1.0-4.8) Monocytes # (Auto) 0.6 x10^3/uL (0.0-1.1) Eosinophils # (Auto) 0.6 x10^3/uL (0.0-0.7) Basophils # (Auto) 0.0 x10^3/uL (0.0-0.2) Sodium Level 136 mmol/L (136-145) Potassium Level 4.8 mmol/L (3.5-5.1) Chloride Level 103 mmol/L (98-107) Carbon Dioxide Level 24 mmol/L (21-32) Anion Gap 9 (6-14) Blood Urea Nitrogen 9 mg/dL (8-26) Creatinine 1.0 mg/dL (0.7-1.3) Estimated GFR (Cockcroft-Gault) 73.0 Glucose Level 88 mg/dL (70-99) Calcium Level 8.7 mg/dL (8.5-10.1) Laboratory Tests Test 11/26/20 06:30 White Blood Count 9.1 x10^3/uL (4.0-11.0) Red Blood Count 3.83 x10^6/uL (4.30-5.70) Hemoglobin 11.1 g/dL (13.0-17.5) Hematocrit 33.7 % (39.0-53.0) Mean Corpuscular Volume 88 fL (79-100) Mean Corpuscular Hemoglobin 29 pg (25-35) Mean Corpuscular Hemoglobin Concent 33 g/dL (31-37) Red Cell Distribution Width 17.6 % (11.5-14.5) Platelet Count 310 x10^3/uL (140-400) Neutrophils (%) (Auto) 66 % (31-73) Lymphocytes (%) (Auto) 20 % (24-48) Monocytes (%) (Auto) 6 % (0-9) Eosinophils (%) (Auto) 7 % (0-3) Basophils (%) (Auto) 1 % (0-3) Neutrophils # (Auto) 6.0 x10^3/uL (1.8-7.7) Lymphocytes # (Auto) 1.9 x10^3/uL (1.0-4.8) Monocytes # (Auto) 0.6 x10^3/uL (0.0-1.1) Eosinophils # (Auto) 0.6 x10^3/uL (0.0-0.7) Basophils # (Auto) 0.0 x10^3/uL (0.0-0.2) Sodium Level 136 mmol/L (136-145) Potassium Level 4.8 mmol/L (3.5-5.1) Chloride Level 103 mmol/L (98-107) Carbon Dioxide Level 24 mmol/L (21-32) Anion Gap 9 (6-14) Blood Urea Nitrogen 9 mg/dL (8-26) Creatinine 1.0 mg/dL (0.7-1.3) Estimated GFR (Cockcroft-Gault) 73.0 Glucose Level 88 mg/dL (70-99) Calcium Level 8.7 mg/dL (8.5-10.1) Microbiology 11/24/20 Blood Culture - Preliminary, Resulted NO GROWTH AFTER 1 DAY 11/23/20 Urine Culture - Final, Complete Medications Current Medications Diltiazem HCl (Cardizem Iv Push) 20 mg 1X ONCE IVP ; Start 11/20/20 at 04:30; Stop 11/20/20 at 06:34; Status DC Diltiazem HCl 125 mg/Sodium Chloride 125 ml @ 5 mls/hr 1X ONCE IV ; Start 11/20/20 at 04:30; Stop 11/20/20 at 06:34; Status DC Sodium Chloride 1,000 ml @ 1,000 mls/hr 1X ONCE IV Last administered on 11/20/20at 05:03; Start 11/20/20 at 04:30; Stop 11/20/20 at 05:29; Status DC Iohexol (Omnipaque 300 Mg/ml) 75 ml 1X ONCE IV Last administered on 11/20/20at 05:37; Start 11/20/20 at 05:00; Stop 11/20/20 at 05:01; Status DC Info (CONTRAST GIVEN -- Rx MONITORING) 1 each PRN DAILY PRN MC SEE COMMENTS; Start 11/20/20 at 05:00; Stop 11/22/20 at 04:59; Status DC Ondansetron HCl (Zofran) 4 mg PRN Q8HRS PRN IV NAUSEA/VOMITING 1ST CHOICE; Start 11/20/20 at 06:30; Stop 11/20/20 at 17:21; Status DC Piperacillin Sod/ Tazobactam Sod 4.5 gm/Sodium Chloride 100 ml @ 200 mls/hr 1X ONCE IV Last administered on 11/20/20at 07:14; Start 11/20/20 at 07:00; Stop 11/20/20 at 07:29; Status DC Olanzapine (ZyPREXA ZYDIS) 5 mg PRN BID PRN PO ANXIETY / AGITATION; Start 11/20/20 at 10:00 Fentanyl Citrate (Fentanyl 2ml Vial) 25 mcg PRN Q3HRS PRN IVP SEVERE PAIN 7-10 Last administered on 11/26/20at 08:55; Start 11/20/20 at 10:00 Bisacodyl (Dulcolax Supp) 10 mg PRN DAILY PRN CA CONSTIPATION; Start 11/20/20 at 10:00 Piperacillin Sod/ Tazobactam Sod 3.375 gm/Sodium Chloride 50 ml @ 100 mls/hr Q6HRS IV Last administered on 11/26/20at 06:34; Start 11/20/20 at 18:00 Ringer's Solution 1,000 ml @ 75 mls/hr 1X ONCE IV Last administered on 11/20/20at 18:14; Start 11/20/20 at 17:30; Stop 11/21/20 at 06:49; Status DC Ondansetron HCl (Zofran) 4 mg PRN Q4HRS PRN IV NAUSEA/VOMITING 1ST CHOICE; Start 11/20/20 at 17:30 Heparin Sodium (Porcine) (Heparin Sodium) 5,000 unit Q8HRS SQ Last administered on 11/26/20at 06:37; Start 11/20/20 at 22:00 Albuterol Sulfate (Ventolin Neb Soln) 2.5 mg PRN Q4HRS PRN NEB SHORTNESS OF BREATH; Start 11/20/20 at 21:45 Hydralazine HCl (Apresoline Inj) 10 mg PRN Q4HRS PRN IVP ELEVATED BP, SEE COMMENTS; Start 11/20/20 at 22:00 Olanzapine (ZyPREXA ZYDIS) 10 mg QHS PO Last administered on 11/25/20at 22:00; Start 11/20/20 at 22:00 Lorazepam (Ativan Inj) 0.5 mg PRN Q4HRS PRN IVP ANXIETY / AGITATION Last ad ministered on 11/24/20 23:10; Start 11/20/20 at 22:00 Benztropine Mesylate (Cogentin) 2 mg PRN BID PRN IM EXTRAPYRAMIDAL SIDE EFFECTS; Start 11/20/20 at 22:00 Metoclopramide HCl (Reglan Vial) 5 mg PRN TID PRN IVP NAUSEA/VOMITING, 2nd choice; Start 11/20/20 at 22:00 Aspirin (Ecotrin) 81 mg DAILYWBKFT PO Last administered on 11/26/20 09:00; Start 11/21/20 at 08:00 Amiodarone HCl (Cordarone) 100 mg DAILY PO Last administered on 11/26/20 09:01; Start 11/21/20 at 09:00 Dorzolamide HCl (Trusopt) 1 drop TID OS Last administered on 11/26/20 09:01; Start 11/21/20 at 09:00 Carbidopa/Levodopa (Sinemet 10/100) 1 tab BID PO Last administered on 11/26/20 09:00; Start 11/21/20 at 09:00 Levothyroxine Sodium (Synthroid) 50 mcg DAILY06 PO Last administered on 11/26 06:34; Start 11/21/20 at 07:00 Risperidone (RisperDAL) 1 mg BID PO Last administered on 11/26/20 09:00; Start 11/21/20 at 09:00 Polyethylene Glycol (miraLAX PACKET) 17 gm DAILY PO Last administered on 11/21/20 09:41; Start 11/21/20 at 09:00; Stop 11/21/20 at 11:19; Status DC Magnesium Hydroxide (Milk Of Magnesia) 2,400 mg PRN DAILY PRN PO CONSTIPATION 1ST CHOICE; Start 11/21/20 at 07:00 Polyethylene Glycol (miraLAX PACKET) 17 gm BID PO Last administered on 11/26/20 09:01; Start 11/21/20 at 12:00 Mineral Oil (Fleet Mineral Oil) 133 ml 1X ONCE CA Last administered on 11/21/20at 17:15; Start 11/21/20 at 11:30; Stop 11/21/20 at 11:31; Status DC Pantoprazole Sodium (PROTONIX VIAL for IV PUSH) 40 mg DAILYAC IVP Last administered on 11/26/20 09:01; Start 11/21/20 at 11:30 Potassium Chloride (Klor-Con) 40 meq 1X ONCE PO Last administered on 11/21/20at 14:45; Start 11/21/20 at 13:30; Stop 11/21/20 at 13:31; Status DC Potassium Chloride (Klor-Con) 20 meq DAILYWBKFT PO Last administered on 11/26/20at 09:00; Start 11/22/20 at 08:00 Cyanocobalamin (Vitamin B-12 Inj) 1,000 mcg 1X ONCE IM Last administered on 11/21/20at 14:45; Start 11/21/20 at 13:45; Stop 11/21/20 at 13:46; Status DC Multivitamins (Thera M Plus) 1 tab DAILY PO Last administered on 11/26/20 09:00; Start 11/21/20 at 14:00 Ascorbic Acid (Vitamin C) 500 mg DAILY PO Last administered on 11/26/20at 09:00; Start 11/21/20 at 14:00 Micafungin Sodium 100 mg/Dextrose 100 ml @ 100 mls/hr Q24H IV Last administered on 11/26/20 09:02; Start 11/24/20 at 08:00 Sodium Chloride 1,000 ml @ 2,000 mls/hr 1X ONCE IV Last administered on 11/24/20at 11:18; Start 11/24/20 at 11:15; Stop 11/24/20 at 11:44; Status DC Lactobacillus Rhamnosus (Culturelle) 1 cap BID PO Last administered on 11/26/20at 09:00; Start 11/24/20 at 21:00 Active Scripts Active Reported Zyprexa (Olanzapine) 10 Mg Tablet 1 Tab PO QHS Tylenol (Acetaminophen) 325 Mg Tablet 2 Tab PO PRN Q6HRS PRN Synthroid (Levothyroxine Sodium) 50 Mcg Tablet 1 Tab PO DAILY Symbicort 160-4.5 Mcg Inhaler (Budesonide/Formoterol Fumarate) 10.2 Gm Hfa.aer.ad 2 Puff IH BID Spironolactone 25 Mg Tablet 1 Tab PO DAILY Sinemet 10-100 Mg Tablet (Carbidopa/Levodopa) 1 Each Tablet 1 Tab PO BID Risperidone 1 Mg Tablet 1 Tab PO BID Prednisolone Acet 1% Eye Drop (Prednisolone Acetate/Pf) 5 Ml Drops.susp 1 Drop OD QID 30 Days Potassium Chloride (Potassium Chloride) 20 Meq Tablet.er 20 Meq PO DAILY Nystatin 15 Gm Powder 1 John TP BID 7 Days apply to affected area(s) Miralax (Polyethylene Glycol 3350) 17 Gm Powd.pack 1 Packet PO PRN DAILY PRN 2 Days dissolve in water Milk Of Magnesia (Magnesium Hydroxide) 400 Mg/5 Ml Oral.susp 1,200 Mg PO PRN DAILY PRN Loperamide (Loperamide Hcl) 2 Mg Tablet 2 Mg PO PRN PRN Xalatan (Latanoprost) 2.5 Ml Drops 1 Drop OU BID PRN Duoneb 0.5-3(2.5) Mg/3 Ml (Albuterol/Ipratropium) 3 Ml Ampul.neb 3 Ml NEB QID Hydrocodone-Acetamin 5-325 mg (Hydrocodone/Acetaminophen) 1 Each Tablet 1 Each PO PRN Q4HRS PRN Furosemide 40 Mg Tablet 1 Tab PO DAILY Dorzolamide 2% Eye Drop (Dorzolamide HCl/Pf) 10 Ml Drops 10 Ml OP TID Docusate Calcium 240 Mg Capsule 1 Cap PO DAILY 30 Days Clonazepam 1 Mg Tablet 1.5 Mg PO BID Aspirin 81 Mg Tab.chew 1 Tab PO DAILY Amiodarone Hcl 100 Mg Tablet 1 Tab PO DAILY 30 Days Vitals/I & O Vital Sign - Last 24 Hours 11/25/20 11/25/20 11/25/20 11/25/20 11:00 14:56 15:00 16:09 Temp 97.6 98.0 97.6 98.0 Pulse 77 76 Resp 18 18 B/P (MAP) 107/61 (76) 95/55 (68) Pulse Ox 97 98 O2 Delivery Room Air Room Air Room Air Room Air 11/25/20 11/25/20 11/25/20 11/25/20 19:00 20:00 23:00 23:01 Temp 97.8 98.2 97.8 98.2 Pulse 84 81 Resp 18 18 18 B/P (MAP) 115/56 (75) 105/60 (75) Pulse Ox 95 96 O2 Delivery Room Air Room Air Room Air Room Air 11/25/20 11/26/20 11/26/20 11/26/20 23:30 03:00 07:00 08:55 Temp 97.4 97.3 97.4 97.3 Pulse 77 78 Resp 20 18 18 B/P (MAP) 95/53 (67) 115/50 (71) Pulse Ox 96 95 O2 Delivery Room Air Room Air Room Air Room Air 11/26/20 11/26/20 09:01 10:27 Pulse 78 B/P (MAP) 115/50 O2 Delivery Room Air Intake and Output 11/25/20 11/25/20 11/26/20 15:00 23:00 07:00 Intake Total 300 ml 800 ml Output Total 1800 ml 2400 ml Balance -1500 ml -1600 ml Nutrition Consultation Dietary Evaluation: Recommendations by RD: Dietary education by RD, Increase Calorie Intake, Protein supplementation Comments: gi soft diet with ensure enlive tid mvi vit c Expected Outcomes/Goals: to meet >75% est nutr needs improved wound status Malnutrition Findings: Body Fat Depletion (Non Severe: Mod to Severe Weight Status: Underweight Justicifation of Admission Dx: Justifications for Admission: Justification of Admission Dx: Yes Altered Mental Status: Altered Mental Status SATINDER NOONAN MD Nov 26, 2020 10:59
[2020-11-26 11:00] VITALS: BP 100/52
--- NOTE | 2020-11-26 11:04 | PDOC ---
Infectious Disease Note Subjective: Subjective Patient feels better No fevers, nausea, vomiting, diarrhea reported Discussed with nursing staff Vital Signs: Vital Signs Vital Signs Date Time Temp Pulse Resp B/P (MAP) Pulse Ox O2 Delivery O2 Flow Rate FiO2 11/26/20 10:27 Room Air 11/26/20 09:01 78 115/50 11/26/20 07:00 97.3 18 95 97.3 Physical Exam: PHYSICAL EXAM DERMATOLOGIC: Bilateral lower extremity wound pictures noted. The patient has bilateral hammertoes, ulcerations superficial with some discoloration, minimal erythema. No gross purulence is noted. Yeast present Medications: Inpatient Meds: Medications reviewed. Labs: Lab Laboratory Tests Test 11/26/20 06:30 White Blood Count 9.1 x10^3/uL (4.0-11.0) Red Blood Count 3.83 x10^6/uL (4.30-5.70) Hemoglobin 11.1 g/dL (13.0-17.5) Hematocrit 33.7 % (39.0-53.0) Mean Corpuscular Volume 88 fL (79-100) Mean Corpuscular Hemoglobin 29 pg (25-35) Mean Corpuscular Hemoglobin Concent 33 g/dL (31-37) Red Cell Distribution Width 17.6 % (11.5-14.5) Platelet Count 310 x10^3/uL (140-400) Neutrophils (%) (Auto) 66 % (31-73) Lymphocytes (%) (Auto) 20 % (24-48) Monocytes (%) (Auto) 6 % (0-9) Eosinophils (%) (Auto) 7 % (0-3) Basophils (%) (Auto) 1 % (0-3) Neutrophils # (Auto) 6.0 x10^3/uL (1.8-7.7) Lymphocytes # (Auto) 1.9 x10^3/uL (1.0-4.8) Monocytes # (Auto) 0.6 x10^3/uL (0.0-1.1) Eosinophils # (Auto) 0.6 x10^3/uL (0.0-0.7) Basophils # (Auto) 0.0 x10^3/uL (0.0-0.2) Sodium Level 136 mmol/L (136-145) Potassium Level 4.8 mmol/L (3.5-5.1) Chloride Level 103 mmol/L (98-107) Carbon Dioxide Level 24 mmol/L (21-32) Anion Gap 9 (6-14) Blood Urea Nitrogen 9 mg/dL (8-26) Creatinine 1.0 mg/dL (0.7-1.3) Estimated GFR (Cockcroft-Gault) 73.0 Glucose Level 88 mg/dL (70-99) Calcium Level 8.7 mg/dL (8.5-10.1) Objective: Assessment: 1. Multiple bilateral chronic nonhealing wounds. 2. Peripheral arterial disease. 3. Leukocytosis, likely reactive, now resolved. 4. Nausea and vomiting on admission, likely from stool impaction. 5. Mild left hydronephrosis and proximal hydroureter with mild obstruction. 6. Urinary retention, Bueno in place. 7. Anemia. 8. History of being on hospice outside the hospital. Plan: Plan of Care 1. Continue local wound care. Vascular input noted 2. Offload. 3. Continue Zosyn , micafungin and doxycycline 4. Leukocytosis unlikely not from wound infection. 5. Maintain aspiration precautions Discussed with RN. DONELL DUVAL MD Nov 26, 2020 11:04
[2020-11-26 15:00] VITALS: BP 98/53
[2020-11-26 19:00] VITALS: BP 114/53
[2020-11-26 23:00] VITALS: BP 105/56
[2020-11-27] MEDS: PIPERACILLIN/TAZOBACTAM 3.375 GM in IV NORMAL SALINE 50ML 50 ML IV SCH ×2 (00:35→05:21)
[2020-11-27 03:00] VITALS: BP 114/57
[2020-11-27] MEDS: LEVOTHYROXINE 50 MCG TABLET PO SCH (05:21)
[2020-11-27] MEDS: HEPARIN for SUB-Q USE 5,000 UNIT/ML VIAL. SQ SCH ×3 (05:26→22:42)
[2020-11-27 06:44] LABS: BASO # 0.1 x10^3/uL (0.0-0.2); BASO % 1 % (0-3); EOS # 0.5 x10^3/uL (0.0-0.7); EOS % 7 % (0-3); HEMATOCRIT 31.8 % (39.0-53.0); HEMOGLOBIN 10.7 g/dL (13.0-17.5); LYMPH # 1.9 x10^3/uL (1.0-4.8); LYMPH % 27 % (24-48); MEAN CORPUSCULAR HEMOGLOBIN 30 pg (25-35); MEAN CORPUSCULAR HGB CONC 34 g/dL (31-37); MEAN CORPUSCULAR VOLUME 88 fL (79-100); MONO # 0.5 x10^3/uL (0.0-1.1); MONO % 8 % (0-9); NEUT # 4.2 x10^3/uL (1.8-7.7); NEUT % 58 % (31-73); PLATELET COUNT 292 x10^3/uL (140-400); RED BLOOD COUNT 3.62 x10^6/uL (4.30-5.70); RED CELL DISTRIBUTION WIDTH 17.7 % (11.5-14.5); WHITE BLOOD COUNT 7.2 x10^3/uL (4.0-11.0)
[2020-11-27 07:04] LABS: CALCIUM 8.6 mg/dL (8.5-10.1); CREATININE 1.1 mg/dL (0.7-1.3); GFR 65.4; POTASSIUM 4.2 mmol/L (3.5-5.1)
[2020-11-27 07:59] VITALS: BP 92/48
--- NOTE | 2020-11-27 09:55 | PDOC ---
Infectious Disease Note Subjective Subjective Patient feels better No fevers, nausea, vomiting, diarrhea reported Discussed with nursing staff Vital Sign Vital Signs Vital Signs Date Time Temp Pulse Resp B/P (MAP) Pulse Ox O2 Delivery O2 Flow Rate FiO2 11/27/20 07:59 98.5 65 20 92/48 (63) 88 Room Air 98.5 Physical Exam PHYSICAL EXAM DERMATOLOGIC: Bilateral lower extremity wound pictures noted. The patient has bilateral hammertoes, ulcerations superficial with some discoloration, minimal erythema. No gross purulence is noted. Yeast present Labs Lab Laboratory Tests Test 11/27/20 06:05 White Blood Count 7.2 x10^3/uL (4.0-11.0) Red Blood Count 3.62 x10^6/uL (4.30-5.70) Hemoglobin 10.7 g/dL (13.0-17.5) Hematocrit 31.8 % (39.0-53.0) Mean Corpuscular Volume 88 fL (79-100) Mean Corpuscular Hemoglobin 30 pg (25-35) Mean Corpuscular Hemoglobin Concent 34 g/dL (31-37) Red Cell Distribution Width 17.7 % (11.5-14.5) Platelet Count 292 x10^3/uL (140-400) Neutrophils (%) (Auto) 58 % (31-73) Lymphocytes (%) (Auto) 27 % (24-48) Monocytes (%) (Auto) 8 % (0-9) Eosinophils (%) (Auto) 7 % (0-3) Basophils (%) (Auto) 1 % (0-3) Neutrophils # (Auto) 4.2 x10^3/uL (1.8-7.7) Lymphocytes # (Auto) 1.9 x10^3/uL (1.0-4.8) Monocytes # (Auto) 0.5 x10^3/uL (0.0-1.1) Eosinophils # (Auto) 0.5 x10^3/uL (0.0-0.7) Basophils # (Auto) 0.1 x10^3/uL (0.0-0.2) Sodium Level 138 mmol/L (136-145) Potassium Level 4.2 mmol/L (3.5-5.1) Chloride Level 105 mmol/L (98-107) Carbon Dioxide Level 23 mmol/L (21-32) Anion Gap 10 (6-14) Blood Urea Nitrogen 6 mg/dL (8-26) Creatinine 1.1 mg/dL (0.7-1.3) Estimated GFR (Cockcroft-Gault) 65.4 Glucose Level 80 mg/dL (70-99) Calcium Level 8.6 mg/dL (8.5-10.1) Micro Microbiology 11/24/20 Blood Culture - Preliminary, Resulted NO GROWTH AFTER 2 DAYS 11/23/20 Urine Culture - Final, Complete Objective Assessment 1. Multiple bilateral chronic nonhealing wounds. 2. Peripheral arterial disease. 3. Leukocytosis, likely reactive, now resolved. 4. Nausea and vomiting on admission, likely from stool impaction. 5. Mild left hydronephrosis and proximal hydroureter with mild obstruction. 6. Urinary retention, Bueno in place. 7. Anemia. 8. History of being on hospice outside the hospital. Plan Plan of Care 1. Continue local wound care. Vascular input noted 2. Offload. 3. change antibiotics to po augmentin, 4. Leukocytosis unlikely not from wound infection. 5. Maintain aspiration precautions Discussed with RN. d/w BUFFY Burnette MD Nov 27, 2020 09:55
[2020-11-27] MEDS: risperiDONE 1 MG TABLET. PO SCH ×2 (10:02→22:35)
[2020-11-27] MEDS: ASPIRIN ENTERIC COATED 81 MG TABLET.DR. PO SCH (10:02)
[2020-11-27] MEDS: CARBIDOPA/LEVODOPA 10/100MG TABLET PO SCH ×2 (10:02→22:34)
[2020-11-27] MEDS: LACTOBACILLUS RHAMNOSUS GG 1 CAPSULE. PO SCH ×2 (10:02→22:35)
[2020-11-27] MEDS: ASCORBIC ACID 500 MG TABLET PO SCH (10:02)
[2020-11-27] MEDS: PANTOPRAZOLE 40 MG TABLET.DR. PO SCH (10:02)
[2020-11-27] MEDS: MULTIVITAMIN with MINERAL TABLET. PO SCH (10:02)
[2020-11-27] MEDS: POLYETHYLENE GLYCOL 3350 17 GM PACKET. PO SCH ×2 (10:02→22:34)
[2020-11-27] MEDS: DORZOLAMIDE 2% OPHTH SOLUTION 10ML BOTTLE. OS SCH ×3 (10:02→21:00)
[2020-11-27] MEDS: AMIODARONE HCL 200 MG TABLET. PO SCH (10:03)
[2020-11-27] MEDS: POTASSIUM CHLORIDE 20 MEQ TABLET.ER. PO SCH (10:04)
[2020-11-27 11:14] VITALS: BP 118/52
[2020-11-27] MEDS ORDERED: HYDR-2759 PO (12:51)
[2020-11-27] MEDS ORDERED: LORA-434 PO (12:51)
--- NOTE | 2020-11-27 12:54 | SNU/HH DC ---
DISCHARGE ORDERS DISCHARGE INFORMATION: DISCHARGE DATE: Nov 27, 2020 FINAL DIAGNOSIS Nausea and vomiting - Sepsis - with left hydroureter and colitiis, Hyponatremia - hypovolemic. Hydronephrosis - no pain, w/ constipation sepsis. H/o v-tach - s/p ppm, also on amiodarone Hyperlipidemia - on statin Hypertension - BP low, likely autonomic dysfunction possibly associated with parkinson disease Hypothyroid - on levothyroxine 50mcg daily CHF - diastolic per SNF records. No BB noted, likely cannot tolerate due to low BP COPD - prn nebs Glaucoma - eye drops Schizophrenia - on risperidal 1mg and olanzapine 10mg QHS Parkinson's - on sinemet Buerger's disease- Urinary retention - has chronic berman catheter changed monthly. Bilateral foot wounds - chronic, will have wound care to see Problems Medical Problems: (1) Leukocytosis Status: Acute (2) Nausea & vomiting Status: Acute CONDITION ON DISCHARGE: Stable HOSPICE: HOSPICE: Yes HOSPICE EVAL & TREAT: Yes POST DISCHARGE ORDERS: DIET AFTER DISCHARGE: Regular DISCHARGE MEDICATIONS: Home Meds Active Scripts Amoxicillin/Potassium Clav (AMOX TR-K CLV 875-125 MG TAB) 1 Each Tablet, 1 TAB PO BID for colitis, #14 TAB Prov:ALEX MCCALL MD 11/27/20 Lorazepam (ATIVAN) 1 Mg Tablet, 1 MG PO Q4HRS PRN for ANXIETY / AGITATION, #50 TAB Prov:ALEX MCCALL MD 11/27/20 Hydrocodone/Acetaminophen (Hydrocodone-Acetamin 5-325 mg) 1 Each Tablet, 1 EACH PO PRN Q4HRS PRN for PAIN, #45 TAB Prov:ALEX MCCALL MD 11/27/20 Reported Medications Olanzapine (ZYPREXA) 10 Mg Tablet, 1 TAB PO QHS for schizophrenia, #30 TAB 11/21/20 Acetaminophen (TYLENOL) 325 Mg Tablet, 2 TAB PO PRN Q6HRS PRN for PAIN, #30 TAB 11/21/20 Levothyroxine Sodium (SYNTHROID) 50 Mcg Tablet, 1 TAB PO DAILY for hypothyroidis m, #30 TAB 5 Refills 11/21/20 Budesonide/Formoterol Fumarate (SYMBICORT 160-4.5 MCG INHALER) 10.2 Gm Hfa.ae r.ad, 2 PUFF IH BID for COPD, #10.6 GM 3 Refills 11/21/20 Spironolactone (SPIRONOLACTONE) 25 Mg Tablet, 1 TAB PO DAILY for heart failure, #90 TAB 1 Refill 11/21/20 Carbidopa/Levodopa (SINEMET 10-100 MG TABLET) 1 Each Tablet, 1 TAB PO BID for parkinson, TAB 11/21/20 Risperidone (RISPERIDONE) 1 Mg Tablet, 1 TAB PO BID for schizophrenia, #30 TAB 1 Refill 11/21/20 Prednisolone Acetate/Pf (Prednisolone Acet 1% Eye Drop) 5 Ml Drops.susp, 1 DROP OD QID for glaucoma for 30 Days, #1 BOTTLE 0 Refills 11/21/20 Potassium Chloride (POTASSIUM CHLORIDE ) 20 Meq Tablet.er, 20 MEQ PO DAILY for SUPPLEMENT, TAB.SR 11/21/20 Nystatin (NYSTATIN) 15 Gm Powder, 1 BRADEN TP BID for redness for 7 Days, #1 BOTTLE 0 Refills apply to affected area(s) 11/21/20 Polyethylene Glycol 3350 (MIRALAX) 17 Gm Powd.pack, 1 PACKET PO PRN DAILY PRN for CONSTIPATION for 2 Days, PACKET 0 Refills dissolve in water 11/21/20 Magnesium Hydroxide (MILK OF MAGNESIA) 400 Mg/5 Ml Oral.susp, 1200 MG PO PRN DAILY PRN for CONSTIPATION, MISC 11/21/20 Loperamide Hcl (LOPERAMIDE) 2 Mg Tablet, 2 MG PO PRN PRN for DIARRHEA, TAB 11/21/20 Latanoprost (XALATAN) 2.5 Ml Drops, 1 DROP OU BID PRN for glaucoma , ML 11/21/20 Ipratropium/Albuterol Sulfate (DUONEB 0.5-3(2.5) MG/3 ML) 3 Ml Ampul.neb, 3 ML NEB QID for SOB or Wheezing, EACH 11/21/20 Furosemide (FUROSEMIDE) 40 Mg Tablet, 1 TAB PO DAILY for heart failure, #30 TAB 5 Refills 11/21/20 Dorzolamide HCl/Pf (Dorzolamide 2% Eye Drop) 10 Ml Drops, 10 ML OP TID for Glamucoma, DROP 11/21/20 Docusate Calcium (DOCUSATE CALCIUM) 240 Mg Capsule, 1 CAP PO DAILY for bowel management for 30 Days, #30 CAP 0 Refills 11/21/20 Clonazepam (CLONAZEPAM) 1 Mg Tablet, 1.5 MG PO BID for schizophrenia , TAB 11/21/20 Aspirin (ASPIRIN) 81 Mg Tab.chew, 1 TAB PO DAILY for Heart Failure, Unspecified, #30 TAB 3 Refills 11/21/20 Amiodarone Hcl (AMIODARONE HCL) 100 Mg Tablet, 1 TAB PO DAILY for Ventricular Tachycardia for 30 Days, #30 TAB 0 Refills 11/21/20 ALEX MCCALL MD Nov 27, 2020 12:54
--- NOTE | 2020-11-27 12:56 | PDOC3 ---
Discharge Summary Visit Information Date of Admission: Nov 20, 2020 Date of Discharge: Nov 27, 2020 Final Diagnosis Nausea and vomiting - Sepsis - with left hydroureter and acute colitiis, Hyponatremia - hypovolemic. Hydronephrosis - no pain, w/ constipation sepsis. H/o v-tach - s/p ppm, also on amiodarone Hyperlipidemia - on statin Hypertension - BP low, likely autonomic dysfunction possibly associated with parkinson disease Hypothyroid - on levothyroxine 50mcg daily CHF - diastolic per SNF records. No BB noted, likely cannot tolerate due to low BP COPD - prn nebs Glaucoma - eye drops Schizophrenia - on risperidal 1mg and olanzapine 10mg QHS Parkinson's - on sinemet Buerger's disease- Urinary retention - has chronic berman catheter changed monthly. Bilateral foot wounds - chronic, had wound care, noted Peripheral vascular disease Problems Medical Problems: (1) Leukocytosis Status: Acute (2) Nausea & vomiting Status: Acute Brief Hospital Course Allergies Allergies Coded Allergies Type Severity Reaction Last Updated Verified methylparaben Allergy Intermediate 11/20/20 Yes phenazopyridine Allergy Intermediate 11/20/20 Yes Vital Signs Vital Signs Date Time Temp Pulse Resp B/P (MAP) Pulse Ox O2 Delivery O2 Flow Rate FiO2 11/27/20 11:14 98.1 65 20 118/52 (74) 97 Room Air 98.1 Lab Results Laboratory Tests Test 11/26/20 06:30 11/27/20 06:05 White Blood Count 9.1 x10^3/uL (4.0-11.0) 7.2 x10^3/uL (4.0-11.0) Red Blood Count 3.83 x10^6/uL (4.30-5.70) 3.62 x10^6/uL (4.30-5.70) Hemoglobin 11.1 g/dL (13.0-17.5) 10.7 g/dL (13.0-17.5) Hematocrit 33.7 % (39.0-53.0) 31.8 % (39.0-53.0) Mean Corpuscular Volume 88 fL (79-100) 88 fL (79-100) Mean Corpuscular Hemoglobin 29 pg (25-35) 30 pg (25-35) Mean Corpuscular Hemoglobin Concent 33 g/dL (31-37) 34 g/dL (31-37) Red Cell Distribution Width 17.6 % (11.5-14.5) 17.7 % (11.5-14.5) Platelet Count 310 x10^3/uL (140-400) 292 x10^3/uL (140-400) Neutrophils (%) (Auto) 66 % (31-73) 58 % (31-73) Lymphocytes (%) (Auto) 20 % (24-48) 27 % (24-48) Monocytes (%) (Auto) 6 % (0-9) 8 % (0-9) Eosinophils (%) (Auto) 7 % (0-3) 7 % (0-3) Basophils (%) (Auto) 1 % (0-3) 1 % (0-3) Neutrophils # (Auto) 6.0 x10^3/uL (1.8-7.7) 4.2 x10^3/uL (1.8-7.7) Lymphocytes # (Auto) 1.9 x10^3/uL (1.0-4.8) 1.9 x10^3/uL (1.0-4.8) Monocytes # (Auto) 0.6 x10^3/uL (0.0-1.1) 0.5 x10^3/uL (0.0-1.1) Eosinophils # (Auto) 0.6 x10^3/uL (0.0-0.7) 0.5 x10^3/uL (0.0-0.7) Basophils # (Auto) 0.0 x10^3/uL (0.0-0.2) 0.1 x10^3/uL (0.0-0.2) Sodium Level 136 mmol/L (136-145) 138 mmol/L (136-145) Potassium Level 4.8 mmol/L (3.5-5.1) 4.2 mmol/L (3.5-5.1) Chloride Level 103 mmol/L (98-107) 105 mmol/L (98-107) Carbon Dioxide Level 24 mmol/L (21-32) 23 mmol/L (21-32) Anion Gap 9 (6-14) 10 (6-14) Blood Urea Nitrogen 9 mg/dL (8-26) 6 mg/dL (8-26) Creatinine 1.0 mg/dL (0.7-1.3) 1.1 mg/dL (0.7-1.3) Estimated GFR (Cockcroft-Gault) 73.0 65.4 Glucose Level 88 mg/dL (70-99) 80 mg/dL (70-99) Calcium Level 8.7 mg/dL (8.5-10.1) 8.6 mg/dL (8.5-10.1) Laboratory Tests Test 11/27/20 06:05 White Blood Count 7.2 x10^3/uL (4.0-11.0) Red Blood Count 3.62 x10^6/uL (4.30-5.70) Hemoglobin 10.7 g/dL (13.0-17.5) Hematocrit 31.8 % (39.0-53.0) Mean Corpuscular Volume 88 fL (79-100) Mean Corpuscular Hemoglobin 30 pg (25-35) Mean Corpuscular Hemoglobin Concent 34 g/dL (31-37) Red Cell Distribution Width 17.7 % (11.5-14.5) Platelet Count 292 x10^3/uL (140-400) Neutrophils (%) (Auto) 58 % (31-73) Lymphocytes (%) (Auto) 27 % (24-48) Monocytes (%) (Auto) 8 % (0-9) Eosinophils (%) (Auto) 7 % (0-3) Basophils (%) (Auto) 1 % (0-3) Neutrophils # (Auto) 4.2 x10^3/uL (1.8-7.7) Lymphocytes # (Auto) 1.9 x10^3/uL (1.0-4.8) Monocytes # (Auto) 0.5 x10^3/uL (0.0-1.1) Eosinophils # (Auto) 0.5 x10^3/uL (0.0-0.7) Basophils # (Auto) 0.1 x10^3/uL (0.0-0.2) Sodium Level 138 mmol/L (136-145) Potassium Level 4.2 mmol/L (3.5-5.1) Chloride Level 105 mmol/L (98-107) Carbon Dioxide Level 23 mmol/L (21-32) Anion Gap 10 (6-14) Blood Urea Nitrogen 6 mg/dL (8-26) Creatinine 1.1 mg/dL (0.7-1.3) Estimated GFR (Cockcroft-Gault) 65.4 Glucose Level 80 mg/dL (70-99) Calcium Level 8.6 mg/dL (8.5-10.1) Brief Hospital Course Mr. Miller is a 75 old male with history of hypertension, hyperlipidemia, Parkinson's, hypothyroidism, CHF, COPD, skilled nursing resident, who was brought to the ER with complaints of abdominal distention, nausea and vomiting. white count was 23.9. He was febrile, tachycardic. CT of the abdomen and pelvis showed rectal stool impaction with additional prominent formed stools, mild left hydroureteronephrosis. The patient was started on Zosyn for wounds. Old foot wound were noted and arterial US showed, proximal stenosis, moderate atheromatous plaque. mult problems, longstanding problems eval for hospice, [facility] to care for at [place] Discharge Information Condition at Discharge: Improved Follow Up: Weeks Disposition/Orders: D/C to Another Facility (hospice facility) Scheduled Amiodarone Hcl (Amiodarone Hcl) 100 Mg Tablet, 1 TAB PO DAILY for Ventricular Tachycardia for 30 Days, #30 Ref 0 (Reported) Entered as Reported by: LUPIS DEXTER on 11/21/201706 Last Action: New Order on 11/21/201706 by LUPIS DEXTER Amoxicillin/Potassium Clav (Amox Tr-K Clv 875-125 Mg Tab) 1 Each Tablet, 1 TAB PO BID for colitis, #14 Prescribed by: ALEX MCCALL on 11/27/20 1301 Aspirin (Aspirin) 81 Mg Tab.chew, 1 TAB PO DAILY for Heart Failure, Unspecified, #30 Ref 3 (Reported) Entered as Reported by: LUPIS DEXTER on 11/21/201706 Last Action: New Order on 11/21/201706 by LUPIS DEXTER Budesonide/Formoterol Fumarate (Symbicort 160-4.5 Mcg Inhaler) 10.2 Gm Hfa.aer.ad, 2 PUFF IH BID for COPD, #10.6 Ref 3 (Reported) Entered as Reported by: LUPIS DEXTER on 11/21/201706 Last Action: New Order on 11/21/201706 by LUPIS DEXTER Carbidopa/Levodopa (Sinemet 10-100 Mg Tablet) 1 Each Tablet, 1 TAB PO BID for parkinson, (Reported) Entered as Reported by: LUPIS DEXTER on 11/21/201706 Last Action: New Order on 11/21/201706 by LUPIS DEXTER Clonazepam (Clonazepam) 1 Mg Tablet, 1.5 MG PO BID for schizophrenia , (Reported) Entered as Reported by: LUPIS DEXTER on 11/21/201706 Last Action: New Order on 11/21/201706 by LUPIS DEXTER Docusate Calcium (Docusate Calcium) 240 Mg Capsule, 1 CAP PO DAILY for bowel management for 30 Days, #30 Ref 0 (Reported) Entered as Reported by: LUPIS DEXTER on 11/21/201706 Last Action: New Order on 11/21/201706 by LUPIS DEXTER Dorzolamide HCl/Pf (Dorzolamide 2% Eye Drop) 10 Ml Drops, 10 ML OP TID for Glamucoma, (Reported) Entered as Reported by: LUPIS DEXTER on 11/21/201706 Last Action: New Order on 11/21/201706 by LUPIS DEXTER Furosemide (Furosemide) 40 Mg Tablet, 1 TAB PO DAILY for heart failure, #30 Ref 5 (Reported) Entered as Reported by: LUPIS DEXTER on 11/21/201706 Last Action: New Order on 11/21/201706 by LUPIS DEXTER Ipratropium/Albuterol Sulfate (Duoneb 0.5-3(2.5) Mg/3 Ml) 3 Ml Ampul.neb, 3 ML NEB QID for SOB or Wheezing, (Reported) Entered as Reported by: LUPIS DEXTER on 11/21/201706 Last Action: New Order on 11/21/201706 by LUPIS DEXTER Levothyroxine Sodium (Synthroid) 50 Mcg Tablet, 1 TAB PO DAILY for hypothyroidism, #30 Ref 5 (Reported) Entered as Reported by: LUPIS DEXTER on 11/21/201706 Last Action: New Order on 11/21/201706 by LUPIS DEXTER Nystatin (Nystatin) 15 Gm Powder, 1 BRADEN TP BID for redness for 7 Days, #1 Ref 0 (Reported) apply to affected area(s) Entered as Reported by: LUPIS DEXTER on 11/21/201706 Last Action: New Order on 11/21/201706 by LUPIS DEXTER Olanzapine (Zyprexa) 10 Mg Tablet, 1 TAB PO QHS for schizophrenia, #30 (Reported) Entered as Reported by: LUPIS DEXTER on 11/21/201706 Last Action: New Order on 11/21/201706 by LUPIS DEXTER Potassium Chloride (Potassium Chloride ) 20 Meq Tablet.er, 20 MEQ PO DAILY for SUPPLEMENT, (Reported) Entered as Reported by: LUPIS DEXTER on 11/21/201706 Last Action: New Order on 11/21/201706 by LUPIS DEXTER Prednisolone Acetate/Pf (Prednisolone Acet 1% Eye Drop) 5 Ml Drops.susp, 1 DROP OD QID for glaucoma for 30 Days, #1 Ref 0 (Reported) Entered as Reported by: LUPIS DEXTER on 11/21/201706 Last Action: New Order on 11/21/201706 by LUPIS DEXTER Risperidone (Risperidone) 1 Mg Tablet, 1 TAB PO BID for schizophrenia, #30 Ref 1 (Reported) Entered as Reported by: LUPIS DEXTER on 11/21/201706 Last Action: New Order on 11/21/201706 by LUPIS DEXTER Spironolactone (Spironolactone) 25 Mg Tablet, 1 TAB PO DAILY for heart failure, #90 Ref 1 (Reported) Entered as Reported by: LUPIS DEXTER on 11/21/201706 Last Action: New Order on 11/21/201706 by LUPIS DEXTER Scheduled PRN Acetaminophen (Tylenol) 325 Mg Tablet, 2 TAB PO PRN Q6HRS PRN for PAIN, #30 (Reported) Entered as Reported by: LUPIS DEXTER on 11/21/201706 Last Action: New Order on 11/21/201706 by LUPIS DEXTER Hydrocodone/Acetaminophen (Hydrocodone-Acetamin 5-325 mg) 1 Each Tablet, 1 EACH PO PRN Q4HRS PRN for PAIN, #45 Prescribed by: ALEX MCCALL on 11/27/20 1252 Latanoprost (Xalatan) 2.5 Ml Drops, 1 DROP OU BID PRN for glaucoma , (Reported) Entered as Reported by: LUPIS DEXTER on 11/21/201706 Last Action: New Order on 11/21/201706 by LUPIS DEXTER Loperamide Hcl (Loperamide) 2 Mg Tablet, 2 MG PO PRN PRN for DIARRHEA, (R eported) Entered as Reported by: LUPIS DEXTER on 11/21/201706 Last Action: New Order on 11/21/201706 by LUPIS DEXTER Lorazepam (Ativan) 1 Mg Tablet, 1 MG PO Q4HRS PRN for ANXIETY / AGITATION, #50 Prescribed by: ALEX MCCALL on 11/27/20 1252 Magnesium Hydroxide (Milk Of Magnesia) 400 Mg/5 Ml Oral.susp, 1,200 MG PO PRN DAILY PRN for CONSTIPATION, (Reported) Entered as Reported by: LUPIS DEXTER on 11/21/201706 Last Action: New Order on 11/21/201706 by LUPIS DEXTER Polyethylene Glycol 3350 (Miralax) 17 Gm Powd.pack, 1 PACKET PO PRN DAILY PRN for CONSTIPATION for 2 Days, Ref 0 (Reported) dissolve in water Entered as Reported by: LUPIS DEXTER on 11/21/201706 Last Action: New Order on 11/21/201706 by LUPIS DEXTER Patient Instructions Patient Instructions time > 30 min face to face Justicifation of Admission Dx: Justifications for Admission: Justification of Admission Dx: Yes Altered Mental Status: Altered Mental Status ALEX MCCALL MD Nov 27, 2020 12:56
[2020-11-27] MEDS: AMOXICILLIN/K CLAV 875/125MG TABLET. PO SCH ×2 (12:57→22:43)
[2020-11-27] MEDS ORDERED: AMOX1TAB11 PO (13:01)
[2020-11-27 15:59] VITALS: BP 107/55
[2020-11-27 19:00] VITALS: BP 110/64
[2020-11-27 23:00] VITALS: BP 118/55
[2020-11-28 02:55] VITALS: BP 92/42
[2020-11-28] MEDS: PANTOPRAZOLE 40 MG TABLET.DR. PO SCH (06:01)
[2020-11-28] MEDS: LEVOTHYROXINE 50 MCG TABLET PO SCH (06:01)
[2020-11-28] MEDS: HEPARIN for SUB-Q USE 5,000 UNIT/ML VIAL. SQ SCH ×2 (06:06→14:47)
[2020-11-28 06:42] LABS: BASO # 0.1 x10^3/uL (0.0-0.2); BASO % 1 % (0-3); EOS # 0.4 x10^3/uL (0.0-0.7); EOS % 5 % (0-3); HEMATOCRIT 34.8 % (39.0-53.0); HEMOGLOBIN 11.5 g/dL (13.0-17.5); LYMPH # 1.5 x10^3/uL (1.0-4.8); LYMPH % 19 % (24-48); MEAN CORPUSCULAR HEMOGLOBIN 29 pg (25-35); MEAN CORPUSCULAR HGB CONC 33 g/dL (31-37); MEAN CORPUSCULAR VOLUME 89 fL (79-100); MONO # 0.5 x10^3/uL (0.0-1.1); MONO % 7 % (0-9); NEUT # 5.5 x10^3/uL (1.8-7.7); NEUT % 68 % (31-73); PLATELET COUNT 313 x10^3/uL (140-400); RED BLOOD COUNT 3.92 x10^6/uL (4.30-5.70); RED CELL DISTRIBUTION WIDTH 17.5 % (11.5-14.5)
[2020-11-28 06:50] LABS: CALCIUM 8.7 mg/dL (8.5-10.1); CREATININE 0.9 mg/dL (0.7-1.3); GFR 82.5; POTASSIUM 4.2 mmol/L (3.5-5.1)
[2020-11-28 07:00] VITALS: BP 110/57
[2020-11-28] MEDS: POLYETHYLENE GLYCOL 3350 17 GM PACKET. PO SCH (09:00)
--- NOTE | 2020-11-28 09:42 | PDOC ---
Infectious Disease Note Subjective Subjective Patient feels better No fevers, nausea, vomiting, diarrhea reported Discussed with nursing staff Vital Sign Vital Signs Vital Signs Date Time Temp Pulse Resp B/P (MAP) Pulse Ox O2 Delivery O2 Flow Rate FiO2 11/28/20 02:55 98.1 72 18 92/42 (59) 92 Room Air 98.1 Physical Exam PHYSICAL EXAM GENERAL: Alert, oriented x 3 male, lying in bed comfortably, in no acute distress. HEENT: Normocephalic, atraumatic. Anicteric. Oral mucosa moist. Poor dentition. NECK: Supple. LUNGS: Clear. HEART: S1, S2. No murmurs. ABDOMEN: Soft, nontender, nondistended. GENITOURINARY: Bueno in place. EXTREMITIES: No edema, no cyanosis. DERMATOLOGIC: Bilateral lower extremity wound pictures noted. The patient has bilateral hammertoes, ulcerations superficial with some discoloration, minimal erythema. No gross purulence is noted. Yeast present NEUROLOGIC: Alert, awake. PSYCHIATRY: Somewhat anxious. Labs Lab Laboratory Tests Test 11/28/20 05:48 White Blood Count 8.0 x10^3/uL (4.0-11.0) Red Blood Count 3.92 x10^6/uL (4.30-5.70) Hemoglobin 11.5 g/dL (13.0-17.5) Hematocrit 34.8 % (39.0-53.0) Mean Corpuscular Volume 89 fL (79-100) Mean Corpuscular Hemoglobin 29 pg (25-35) Mean Corpuscular Hemoglobin Concent 33 g/dL (31-37) Red Cell Distribution Width 17.5 % (11.5-14.5) Platelet Count 313 x10^3/uL (140-400) Neutrophils (%) (Auto) 68 % (31-73) Lymphocytes (%) (Auto) 19 % (24-48) Monocytes (%) (Auto) 7 % (0-9) Eosinophils (%) (Auto) 5 % (0-3) Basophils (%) (Auto) 1 % (0-3) Neutrophils # (Auto) 5.5 x10^3/uL (1.8-7.7) Lymphocytes # (Auto) 1.5 x10^3/uL (1.0-4.8) Monocytes # (Auto) 0.5 x10^3/uL (0.0-1.1) Eosinophils # (Auto) 0.4 x10^3/uL (0.0-0.7) Basophils # (Auto) 0.1 x10^3/uL (0.0-0.2) Sodium Level 135 mmol/L (136-145) Potassium Level 4.2 mmol/L (3.5-5.1) Chloride Level 102 mmol/L (98-107) Carbon Dioxide Level 24 mmol/L (21-32) Anion Gap 9 (6-14) Blood Urea Nitrogen 8 mg/dL (8-26) Creatinine 0.9 mg/dL (0.7-1.3) Estimated GFR (Cockcroft-Gault) 82.5 Glucose Level 84 mg/dL (70-99) Calcium Level 8.7 mg/dL (8.5-10.1) Micro Microbiology 11/24/20 Blood Culture - Preliminary, Resulted NO GROWTH AFTER 2 DAYS 11/23/20 Urine Culture - Final, Complete Objective Assessment 1. Multiple bilateral chronic nonhealing wounds. 2. Peripheral arterial disease. 3. Leukocytosis, likely reactive, now resolved. 4. Nausea and vomiting on admission, likely from stool impaction. 5. Mild left hydronephrosis and proximal hydroureter with mild obstruction. 6. Urinary retention, Bueno in place. 7. Anemia. 8. History of being on hospice outside the hospital. Plan Plan of Care 1. Continue local wound care. Vascular input noted 2. Offload. 3. change antibiotics to po augmentin, 4. Leukocytosis unlikely not from wound infection. 5. Maintain aspiration precautions Discussed with RN. d/w BUFFY Burnette MD Nov 28, 2020 09:41
[2020-11-28] MEDS: LACTOBACILLUS RHAMNOSUS GG 1 CAPSULE. PO SCH (10:13)
[2020-11-28] MEDS: risperiDONE 1 MG TABLET. PO SCH (10:13)
[2020-11-28] MEDS: MULTIVITAMIN with MINERAL TABLET. PO SCH (10:13)
[2020-11-28] MEDS: ASCORBIC ACID 500 MG TABLET PO SCH (10:13)
[2020-11-28] MEDS: ASPIRIN ENTERIC COATED 81 MG TABLET.DR. PO SCH (10:13)
[2020-11-28] MEDS: AMOXICILLIN/K CLAV 875/125MG TABLET. PO SCH (10:13)
[2020-11-28] MEDS: POTASSIUM CHLORIDE 20 MEQ TABLET.ER. PO SCH (10:13)
[2020-11-28] MEDS: CARBIDOPA/LEVODOPA 10/100MG TABLET PO SCH (10:14)
[2020-11-28] MEDS: DORZOLAMIDE 2% OPHTH SOLUTION 10ML BOTTLE. OS SCH ×2 (10:14→14:45)
[2020-11-28] MEDS: AMIODARONE HCL 200 MG TABLET. PO SCH (10:16)
[2020-11-28 11:00] VITALS: BP 112/60
--- NOTE | 2020-11-28 11:09 | SNU/HH DC ---
DISCHARGE ORDERS DISCHARGE INFORMATION: DISCHARGE DATE: Nov 27, 2020 FINAL DIAGNOSIS Nausea and vomiting - Sepsis - with left hydroureter and colitiis, Hyponatremia - hypovolemic. Hydronephrosis - no pain, w/ constipation sepsis. H/o v-tach - s/p ppm, also on amiodarone Hyperlipidemia - on statin Hypertension - BP low, likely autonomic dysfunction possibly associated with parkinson disease Hypothyroid - on levothyroxine 50mcg daily CHF - diastolic per SNF records. No BB noted, likely cannot tolerate due to low BP COPD - prn nebs Glaucoma - eye drops Schizophrenia - on risperidal 1mg and olanzapine 10mg QHS Parkinson's - on sinemet Buerger's disease- Urinary retention - has chronic berman catheter changed monthly. Bilateral foot wounds - chronic, will have wound care to see Problems Medical Problems: (1) Leukocytosis Status: Acute (2) Nausea & vomiting Status: Acute CONDITION ON DISCHARGE: Stable CODE STATUS: Code Status: Full (DPOA is state appointed) HOSPICE: HOSPICE: Yes HOSPICE EVAL & TREAT: Yes POST DISCHARGE ORDERS: DIET AFTER DISCHARGE: Regular DISCHARGE MEDICATIONS: Home Meds Active Scripts Amoxicillin/Potassium Clav (AMOX TR-K CLV 875-125 MG TAB) 1 Each Tablet, 1 TAB PO BID for colitis, #14 TAB Prov:ALEX MCCALL MD 11/27/20 Lorazepam (ATIVAN) 1 Mg Tablet, 1 MG PO Q4HRS PRN for ANXIETY / AGITATION, #50 TAB Prov:ALEX MCCALL MD 11/27/20 Hydrocodone/Acetaminophen (Hydrocodone-Acetamin 5-325 mg) 1 Each Tablet, 1 EACH PO PRN Q4HRS PRN for PAIN, #45 TAB Prov:ALEX MCCALL MD 11/27/20 Reported Medications Olanzapine (ZYPREXA) 10 Mg Tablet, 1 TAB PO QHS for schizophrenia, #30 TAB 11/21/20 Acetaminophen (TYLENOL) 325 Mg Tablet, 2 TAB PO PRN Q6HRS PRN for PAIN, #30 TAB 11/21/20 Levothyroxine Sodium (SYNTHROID) 50 Mcg Tablet, 1 TAB PO DAILY for hypothyroidism, #30 TAB 5 Refills 11/21/20 Budesonide/Formoterol Fumarate (SYMBICORT 160-4.5 MCG INHALER) 10.2 Gm Hfa.aer.ad, 2 PUFF IH BID for COPD, #10.6 GM 3 Refills 11/21/20 Spironolactone (SPIRONOLACTONE) 25 Mg Tablet, 1 TAB PO DAILY for heart failure, #90 TAB 1 Refill 11/21/20 Carbidopa/Levodopa (SINEMET 10-100 MG TABLET) 1 Each Tablet, 1 TAB PO BID for parkinson, TAB 11/21/20 Risperidone (RISPERIDONE) 1 Mg Tablet, 1 TAB PO BID for schizophrenia, #30 TAB 1 Refill 11/21/20 Prednisolone Acetate/Pf (Prednisolone Acet 1% Eye Drop) 5 Ml Drops.susp, 1 DROP OD QID for glaucoma for 30 Days, #1 BOTTLE 0 Refills 11/21/20 Potassium Chloride (POTASSIUM CHLORIDE ) 20 Meq Tablet.er, 20 MEQ PO DAILY for SUPPLEMENT, TAB.SR 11/21/20 Nystatin (NYSTATIN) 15 Gm Powder, 1 BRADEN TP BID for redness for 7 Days, #1 BOTTLE 0 Refills apply to affected area(s) 11/21/20 Polyethylene Glycol 3350 (MIRALAX) 17 Gm Powd.pack, 1 PACKET PO PRN DAILY PRN for CONSTIPATION for 2 Days, PACKET 0 Refills dissolve in water 11/21/20 Magnesium Hydroxide (MILK OF MAGNESIA) 400 Mg/5 Ml Oral.susp, 1200 MG PO PRN DAILY PRN for CONSTIPATION, MISC 11/21/20 Loperamide Hcl (LOPERAMIDE) 2 Mg Tablet, 2 MG PO PRN PRN for DIARRHEA, TAB 11/21/20 Latanoprost (XALATAN) 2.5 Ml Drops, 1 DROP OU BID PRN for glaucoma , ML 11/21/20 Ipratropium/Albuterol Sulfate (DUONEB 0.5-3(2.5) MG/3 ML) 3 Ml Ampul.neb, 3 ML NEB QID for SOB or Wheezing, EACH 11/21/20 Furosemide (FUROSEMIDE) 40 Mg Tablet, 1 TAB PO DAILY for heart failure, #30 TAB 5 Refills 11/21/20 Dorzolamide HCl/Pf (Dorzolamide 2% Eye Drop) 10 Ml Drops, 10 ML OP TID for Glamucoma, DROP 11/21/20 Docusate Calcium (DOCUSATE CALCIUM) 240 Mg Capsule, 1 CAP PO DAILY for bowel management for 30 Days, #30 CAP 0 Refills 11/21/20 Clonazepam (CLONAZEPAM) 1 Mg Tablet, 1.5 MG PO BID for schizophrenia , TAB 11/21/20 Aspirin (ASPIRIN) 81 Mg Tab.chew, 1 TAB PO DAILY for Heart Failure, Unspecified, #30 TAB 3 Refills 11/21/20 Amiodarone Hcl (AMIODARONE HCL) 100 Mg Tablet, 1 TAB PO DAILY for Ventricular Tachycardia for 30 Days, #30 TAB 0 Refills 11/21/20 ALEX MCCALL MD Nov 28, 2020 11:09
--- NOTE | 2020-11-28 11:59 | NUR ---
SW following. Discussed with RN, new discharge orders faxed to [facility]- awaiting transportation time. SW will continue to follow.
[2020-11-28 15:00] VITALS: BP 116/62
--- NOTE | 2020-11-28 15:07 | PDOC ---
[employer] PROGRESS NOTE Date of Service DOS: DATE: 11/28/20 TIME: 15:07 Chief Complaint Chief Complaint ,late entry, pt seen 11/27, tried to DC, unable to transfer A/P: Nausea and vomiting - no clear SBO, constipation likely etiology. Will keep NPO. IV antiemetics, fluids Sepsis - with left hydroureter and possible colitiis, will f/u empiric cultures from urine and blood and give zosyn for UTI/ GI coverage Hyponatremia - likely hypovolemic. will gently hydrate given his h/o CHF, will limit overall fluids Hydronephrosis - no pain, but patient is poor historian. Likely due to constipation and with vessel overlying ureter, will cont berman and antibiotics for now Tachycardia - Likely due to sepsis. has pacer appears to be functioning H/o v-tach - s/p ppm, also on amiodarone Hyperlipidemia - on statin Hypertension - BP low, likely autonomic dysfunction possibly associated with parkinson disease Hypothyroid - on levothyroxine 50mcg daily CHF - diastolic per SNF records. No BB noted, likely cannot tolerate due to low BP COPD - prn nebs Glaucoma - eye drops Schizophrenia - on risperidal 1mg and olanzapine 10mg QHS Parkinson's - on sinemet Buerger's disease- no smoking Urinary retention - has chronic berman catheter changed monthly. Bilateral foot wounds - chronic, will have wound care to see FEN - NPO PPX - heparin CODE - FULL. Surrogate decision maker is Faith Ambrose Dispo - inpatient Justifications for Admission Justifications for Admission Other Justification History of Present Illness History of Present Illness Mr Miller is a 75 year old male past medical history hyperlipidemia hypertension Parkinson's hypothyroid CHF COPD, Glaucoma, Hypothyroid, Schizophrenia, Parkinson's, and buerger's disease who presents to ED from his [facility] in [place], [place] with report of abdominal distention and 7 episodes of emesis. He does note he vomited but has not had any abdominal pain. CT abdomen pelvis with mild hydroureter on left, no stones notes. Findings concerning for rectal stool impaction with additional prominent formed stool throughout the colon. WBC 23.9, Hb 12.9, platelets 357, Na 131, K 3.9, BUN 12, Cr 1.1, glucose 166, trop 0, Albumin 3.2 On arrival patient found to have a heart rate in the 120s was started on cardizem per ED. EKG does appear to have ventricularly paced rhythm with rate 124 bpm and multiple PVCs, no ST segment elevations or TWI. Admitted for further care. 11/25/2020: Patient seen and evaluated. Afebrile, no acute events overnight. Continue Reglan, Zosyn, and micafungin, per ID. Blood culture showed no growth. Plan is to discharge to [facility] when stable on oral antibiotics. Discussed with RN. 11/24/2020: Afebrile. Discussed with RN, MAP 59 today; provide 2 L normal saline bolus. Will obtain blood cultures. Continue micafungin and Zosyn, per ID. 11/23/2020: Afebrile. Leukocytosis is resolved. Patient reports improvement in abdominal pain and constipation; apparently "stooled in (his) pants last night". From GI standpoint he may discharge back to his [facility]. Vascular surgery recommended continue local wound care and continue to off-load his heels; antibiotics per Infectious Disease. Patient is currently on IV Zosyn per ID for his bilateral lower extremity wounds and he is requesting to possibly di scharge to [facility] tomorrow. 6-23 Monophasic waveforms bilaterally, may indicate proximal stenosis. Nausea and vomiting - no clear SBO, constipation likely etiology. Will keep NPO. IV antiemetics, fluids Sepsis - with left hydroureter and possible colitiis, will f/u empiric cultures from urine and blood and give zosyn for UTI/ GI coverage Hyponatremia - likely hypovolemic. will gently hydrate given his h/o CHF, will limit overall fluids Hydronephrosis - no pain, but patient is poor historian. Likely due to constipation and with vessel overlying ureter, will cont berman and antibiotics for now Tachycardia - Likely due to sepsis. has pacer appears to be functioning H/o v-tach - s/p ppm, also on amiodarone Hyperlipidemia - on statin Hypertension - BP low, likely autonomic dysfunction possibly associated with parkinson disease Hypothyroid - on levothyroxine 50mcg daily CHF - diastolic per SNF records. No BB noted, likely cannot tolerate due to low BP COPD - prn nebs Glaucoma - eye drops Schizophrenia - on risperidal 1mg and olanzapine 10mg QHS Parkinson's - on sinemet Buerger's disease- no smoking Urinary retention - has chronic berman catheter changed monthly. Bilateral foot wounds - chronic, will have wound care to see FEN -REG DIET PPX - heparin Suspect active erosions along the lateral aspect of the fifth metatarsal head/neck on the left greater than right. An erosion of the left first distal phalangeal tuft may not be acute. Correlate for active infection. CODE - FULL. Surrogate decision maker is Faith Ambrose Dispo - inpatient CONSULT VASCULAR SURGERY, ID 6- Continue IV Zosyn , micafungin and doxycycline Monophasic waveforms bilaterally, may indicate proximal stenosis. Nausea and vomiting - no clear SBO, constipation likely etiology. Will keep NPO. IV antiemetics, fluids Sepsis - with left hydroureter and possible colitiis, will f/u empiric cultures from urine and blood and give zosyn for UTI/ GI coverage Hyponatremia - likely hypovolemic. will gently hydrate given his h/o CHF, will limit overall fluids Hydronephrosis - no pain, but patient is poor historian. Likely due to constipation and with vessel overlying ureter, will cont berman and antibiotics for now Tachycardia - Likely due to sepsis. has pacer appears to be functioning H/o v-tach - s/p ppm, also on amiodarone Hyperlipidemia - on statin Hypertension - BP low, likely autonomic dysfunction possibly associated with parkinson disease Hypothyroid - on levothyroxine 50mcg daily CHF - diastolic per SNF records. No BB noted, likely cannot tolerate due to low BP COPD - prn nebs Glaucoma - eye drops Schizophrenia - on risperidal 1mg and olanzapine 10mg QHS Parkinson's - on sinemet Buerger's disease- no smoking Urinary retention - has chronic berman catheter changed monthly. Bilateral foot wounds - chronic, will have wound care to see FEN -REG DIET PPX - heparin Suspect active erosions along the lateral aspect of the fifth metatarsal head/neck on the left greater than right. An erosion of the left first distal phalangeal tuft may not be acute. Correlate for active infection. CODE - FULL. Surrogate decision maker is Faith Ambrose Dispo - inpatient CONSULT VASCULAR SURGERY, ID Vitals/I&O Vitals/I&O: Vital Signs Date Time Temp Pulse Resp B/P (MAP) Pulse Ox O2 Delivery O2 Flow Rate FiO2 11/28/20 11:00 97.9 70 18 112/60 (77) 91 Room Air 97.9 I & O 11/27/20 11/27/20 11/28/20 15:00 23:00 07:00 Intake Total 3400 ml 1100 ml Output Total 3000 ml 3925 ml Balance 400 ml -2825 ml Physical Exam Physical Exam: GENERAL: Alert, oriented x 3 male, lying in bed comfortably, in no acute distress. HEENT: Normocephalic, atraumatic. Anicteric. Oral mucosa moist. Poor dentition. NECK: Supple. LUNGS: Clear. HEART: S1, S2. No murmurs. ABDOMEN: Soft, nontender, nondistended. GENITOURINARY: Berman in place. EXTREMITIES: No edema, no cyanosis. DERMATOLOGIC: Bilateral lower extremity wound pictures noted. The patient has bilateral hammertoes, ulcerations superficial with some discoloration, minimal erythema. No gross purulence is noted. Yeast present NEUROLOGIC: Alert, awake. PSYCHIATRY: Somewhat anxious. General: Alert, Cooperative, No acute distress, Other (hallucinating , talking to self) Heart: Regular rate Lungs: Clear Abdomen: Normal bowel sounds, No hepatosplenomegaly, No masses, Other (distended) Extremities: No clubbing, No cyanosis, No edema, Normal pulses, No tenderness/swelling Skin: Other (Bilateral foot wounds, bilateral Rooke boots, gluteal redness) Labs Labs: Laboratory Tests Test 11/28/20 05:48 White Blood Count 8.0 x10^3/uL (4.0-11.0) Red Blood Count 3.92 x10^6/uL (4.30-5.70) Hemoglobin 11.5 g/dL (13.0-17.5) Hematocrit 34.8 % (39.0-53.0) Mean Corpuscular Volume 89 fL (79-100) Mean Corpuscular Hemoglobin 29 pg (25-35) Mean Corpuscular Hemoglobin Concent 33 g/dL (31-37) Red Cell Distribution Width 17.5 % (11.5-14.5) Platelet Count 313 x10^3/uL (140-400) Neutrophils (%) (Auto) 68 % (31-73) Lymphocytes (%) (Auto) 19 % (24-48) Monocytes (%) (Auto) 7 % (0-9) Eosinophils (%) (Auto) 5 % (0-3) Basophils (%) (Auto) 1 % (0-3) Neutrophils # (Auto) 5.5 x10^3/uL (1.8-7.7) Lymphocytes # (Auto) 1.5 x10^3/uL (1.0-4.8) Monocytes # (Auto) 0.5 x10^3/uL (0.0-1.1) Eosinophils # (Auto) 0.4 x10^3/uL (0.0-0.7) Basophils # (Auto) 0.1 x10^3/uL (0.0-0.2) Sodium Level 135 mmol/L (136-145) Potassium Level 4.2 mmol/L (3.5-5.1) Chloride Level 102 mmol/L (98-107) Carbon Dioxide Level 24 mmol/L (21-32) Anion Gap 9 (6-14) Blood Urea Nitrogen 8 mg/dL (8-26) Creatinine 0.9 mg/dL (0.7-1.3) Estimated GFR (Cockcroft-Gault) 82.5 Glucose Level 84 mg/dL (70-99) Calcium Level 8.7 mg/dL (8.5-10.1) Assessment and Plan Assessmemt and Plan Problems Medical Problems: (1) Leukocytosis Status: Acute (2) Nausea & vomiting Status: Acute Comment Review of Relevant I have reviewed the following items jeremy (where applicable) has been applied. Justifications for Admission Other Justification ALEX MCCALL MD Nov 28, 2020 15:07
--- NOTE | 2020-11-28 15:09 | PDOC3 ---
Discharge Summary Visit Information Date of Admission: Nov 20, 2020 Date of Discharge: Nov 28, 2020 Final Diagnosis Nausea and vomiting - Sepsis - with left hydroureter and acute colitiis, Hyponatremia - hypovolemic. Hydronephrosis - no pain, w/ constipation sepsis. H/o v-tach - s/p ppm, also on amiodarone Hyperlipidemia - on statin Hypertension - BP low, likely autonomic dysfunction possibly associated with parkinson disease Hypothyroid - on levothyroxine 50mcg daily CHF - diastolic per SNF records. No BB noted, likely cannot tolerate due to low BP COPD - prn nebs Glaucoma - eye drops Schizophrenia - on risperidal 1mg and olanzapine 10mg QHS Parkinson's - on sinemet Buerger's disease- Urinary retention - has chronic berman catheter changed monthly. Bilateral foot wounds - chronic, had wound care, noted Peripheral vascular disease Problems Medical Problems: (1) Leukocytosis Status: Acute (2) Nausea & vomiting Status: Acute Brief Hospital Course Allergies Allergies Coded Allergies Type Severity Reaction Last Updated Verified methylparaben Allergy Intermediate 11/20/20 Yes phenazopyridine Allergy Intermediate 11/20/20 Yes Vital Signs Vital Signs Date Time Temp Pulse Resp B/P (MAP) Pulse Ox O2 Delivery O2 Flow Rate FiO2 11/28/20 11:00 97.9 70 18 112/60 (77) 91 Room Air 97.9 Lab Results Laboratory Tests Test 11/27/20 06:05 11/28/20 05:48 White Blood Count 7.2 x10^3/uL (4.0-11.0) 8.0 x10^3/uL (4.0-11.0) Red Blood Count 3.62 x10^6/uL (4.30-5.70) 3.92 x10^6/uL (4.30-5.70) Hemoglobin 10.7 g/dL (13.0-17.5) 11.5 g/dL (13.0-17.5) Hematocrit 31.8 % (39.0-53.0) 34.8 % (39.0-53.0) Mean Corpuscular Volume 88 fL (79-100) 89 fL (79-100) Mean Corpuscular Hemoglobin 30 pg (25-35) 29 pg (25-35) Mean Corpuscular Hemoglobin Concent 34 g/dL (31-37) 33 g/dL (31-37) Red Cell Distribution Width 17.7 % (11.5-14.5) 17.5 % (11.5-14.5) Platelet Count 292 x10^3/uL (140-400) 313 x10^3/uL (140-400) Neutrophils (%) (Auto) 58 % (31-73) 68 % (31-73) Lymphocytes (%) (Auto) 27 % (24-48) 19 % (24-48) Monocytes (%) (Auto) 8 % (0-9) 7 % (0-9) Eosinophils (%) (Auto) 7 % (0-3) 5 % (0-3) Basophils (%) (Auto) 1 % (0-3) 1 % (0-3) Neutrophils # (Auto) 4.2 x10^3/uL (1.8-7.7) 5.5 x10^3/uL (1.8-7.7) Lymphocytes # (Auto) 1.9 x10^3/uL (1.0-4.8) 1.5 x10^3/uL (1.0-4.8) Monocytes # (Auto) 0.5 x10^3/uL (0.0-1.1) 0.5 x10^3/uL (0.0-1.1) Eosinophils # (Auto) 0.5 x10^3/uL (0.0-0.7) 0.4 x10^3/uL (0.0-0.7) Basophils # (Auto) 0.1 x10^3/uL (0.0-0.2) 0.1 x10^3/uL (0.0-0.2) Sodium Level 138 mmol/L (136-145) 135 mmol/L (136-145) Potassium Level 4.2 mmol/L (3.5-5.1) 4.2 mmol/L (3.5-5.1) Chloride Level 105 mmol/L (98-107) 102 mmol/L (98-107) Carbon Dioxide Level 23 mmol/L (21-32) 24 mmol/L (21-32) Anion Gap 10 (6-14) 9 (6-14) Blood Urea Nitrogen 6 mg/dL (8-26) 8 mg/dL (8-26) Creatinine 1.1 mg/dL (0.7-1.3) 0.9 mg/dL (0.7-1.3) Estimated GFR (Cockcroft-Gault) 65.4 82.5 Glucose Level 80 mg/dL (70-99) 84 mg/dL (70-99) Calcium Level 8.6 mg/dL (8.5-10.1) 8.7 mg/dL (8.5-10.1) Laboratory Tests Test 11/28/20 05:48 White Blood Count 8.0 x10^3/uL (4.0-11.0) Red Blood Count 3.92 x10^6/uL (4.30-5.70) Hemoglobin 11.5 g/dL (13.0-17.5) Hematocrit 34.8 % (39.0-53.0) Mean Corpuscular Volume 89 fL (79-100) Mean Corpuscular Hemoglobin 29 pg (25-35) Mean Corpuscular Hemoglobin Concent 33 g/dL (31-37) Red Cell Distribution Width 17.5 % (11.5-14.5) Platelet Count 313 x10^3/uL (140-400) Neutrophils (%) (Auto) 68 % (31-73) Lymphocytes (%) (Auto) 19 % (24-48) Monocytes (%) (Auto) 7 % (0-9) Eosinophils (%) (Auto) 5 % (0-3) Basophils (%) (Auto) 1 % (0-3) Neutrophils # (Auto) 5.5 x10^3/uL (1.8-7.7) Lymphocytes # (Auto) 1.5 x10^3/uL (1.0-4.8) Monocytes # (Auto) 0.5 x10^3/uL (0.0-1.1) Eosinophils # (Auto) 0.4 x10^3/uL (0.0-0.7) Basophils # (Auto) 0.1 x10^3/uL (0.0-0.2) Sodium Level 135 mmol/L (136-145) Potassium Level 4.2 mmol/L (3.5-5.1) Chloride Level 102 mmol/L (98-107) Carbon Dioxide Level 24 mmol/L (21-32) Anion Gap 9 (6-14) Blood Urea Nitrogen 8 mg/dL (8-26) Creatinine 0.9 mg/dL (0.7-1.3) Estimated GFR (Cockcroft-Gault) 82.5 Glucose Level 84 mg/dL (70-99) Calcium Level 8.7 mg/dL (8.5-10.1) Brief Hospital Course Mr. Miller is a 75 old male with history of hypertension, hyperlipidemia, Parkinson's, hypothyroidism, CHF, COPD, [facility] resident, who was brought to the ER with complaints of abdominal distention, nausea and vomiting. white count was 23.9. He was febrile, tachycardic. CT of the abdomen and pelvis showed rectal stool impaction with additional prominent formed stools, mild left hydroureteronephrosis. The patient was started on Zosyn for wounds. Old foot wound were noted and arterial US showed, proximal stenosis, moderate atheromatous plaque. mult problems, longstanding problems eval for hospice, [facility] to care for at [place] Discharge Information Condition at Discharge: Improved Follow Up: Weeks Disposition/Orders: D/C to Another Facility Scheduled Amiodarone Hcl (Amiodarone Hcl) 100 Mg Tablet, 1 TAB PO DAILY for Ventricular Tachycardia for 30 Days, #30 Ref 0 (Reported) Entered as Reported by: LUPIS DEXTER on 11/21/201706 Last Action: New Order on 11/21/201706 by LUPIS DEXTER Amoxicillin/Potassium Clav (Amox Tr-K Clv 875-125 Mg Tab) 1 Each Tablet, 1 TAB PO BID for colitis, #14 Prescribed by: ALEX MCCALL on 11/27/20 1301 Aspirin (Aspirin) 81 Mg Tab.chew, 1 TAB PO DAILY for Heart Failure, Unspecified, #30 Ref 3 (Reported) Entered as Reported by: LUPIS DEXTER on 11/21/201706 Last Action: New Order on 11/21/201706 by LUPIS DEXTER Budesonide/Formoterol Fumarate (Symbicort 160-4.5 Mcg Inhaler) 10.2 Gm Hfa.aer.ad, 2 PUFF IH BID for COPD, #10.6 Ref 3 (Reported) Entered as Reported by: LUPIS DEXTER on 11/21/201706 Last Action: New Order on 11/21/201706 by LUPIS DEXTER Carbidopa/Levodopa (Sinemet 10-100 Mg Tablet) 1 Each Tablet, 1 TAB PO BID for parkinson, (Reported) Entered as Reported by: LUPIS DEXTER on 11/21/201706 Last Action: New Order on 11/21/201706 by LUPIS DEXTER Clonazepam (Clonazepam) 1 Mg Tablet, 1.5 MG PO BID for schizophrenia , (Reported) Entered as Reported by: LUPIS DEXTER on 11/21/201706 Last Action: New Order on 11/21/201706 by LUPIS DEXTER Docusate Calcium (Docusate Calcium) 240 Mg Capsule, 1 CAP PO DAILY for bowel management for 30 Days, #30 Ref 0 (Reported) Entered as Reported by: LUPIS DEXTER on 11/21/201706 Last Action: New Order on 11/21/201706 by LUPIS DEXTER Dorzolamide HCl/Pf (Dorzolamide 2% Eye Drop) 10 Ml Drops, 10 ML OP TID for Glamucoma, (Reported) Entered as Reported by: LUPIS DEXTER on 11/21/201706 Last Action: New Order on 11/21/201706 by LUPIS DEXTER Furosemide (Furosemide) 40 Mg Tablet, 1 TAB PO DAILY for heart failure, #30 Ref 5 (Reported) Entered as Reported by: LUPIS DEXTER on 11/21/201706 Last Action: New Order on 11/21/201706 by LUPIS DEXTER Ipratropium/Albuterol Sulfate (Duoneb 0.5-3(2.5) Mg/3 Ml) 3 Ml Ampul.neb, 3 ML NEB QID for SOB or Wheezing, (Reported) Entered as Reported by: LUPIS DEXTER on 11/21/201706 Last Action: New Order on 11/21/201706 by LUPIS DEXTER Levothyroxine Sodium (Synthroid) 50 Mcg Tablet, 1 TAB PO DAILY for hypothyroidism, #30 Ref 5 (Reported) Entered as Reported by: LUPIS DEXTER on 11/21/201706 Last Action: New Order on 11/21/201706 by LUPIS DEXTER Nystatin (Nystatin) 15 Gm Powder, 1 BRADEN TP BID for redness for 7 Days, #1 Ref 0 (Reported) apply to affected area(s) Entered as Reported by: LUPIS DEXTER on 11/21/201706 Last Action: New Order on 11/21/201706 by LUPIS DEXTER Olanzapine (Zyprexa) 10 Mg Tablet, 1 TAB PO QHS for schizophrenia, #30 (Reported) Entered as Reported by: LUPIS DEXTER on 11/21/201706 Last Action: New Order on 11/21/201706 by LUPIS DEXTER Potassium Chloride (Potassium Chloride ) 20 Meq Tablet.er, 20 MEQ PO DAILY for SUPPLEMENT, (Reported) Entered as Reported by: LUPIS DEXTER on 11/21/201706 Last Action: New Order on 11/21/201706 by LUPIS DEXTER Prednisolone Acetate/Pf (Prednisolone Acet 1% Eye Drop) 5 Ml Drops.susp, 1 DROP OD QID for glaucoma for 30 Days, #1 Ref 0 (Reported) Entered as Reported by: LUPIS DEXTER on 11/21/201706 Last Action: New Order on 11/21/201706 by LUPIS DEXTER Risperidone (Risperidone) 1 Mg Tablet, 1 TAB PO BID for schizophrenia, #30 Ref 1 (Reported) Entered as Reported by: LUPIS DEXTER on 11/21/201706 Last Action: New Order on 11/21/201706 by LUPIS DEXTER Spironolactone (Spironolactone) 25 Mg Tablet, 1 TAB PO DAILY for heart failure, #90 Ref 1 (Reported) Entered as Reported by: LUPIS DEXTRE on 11/21/201706 Last Action: New Order on 11/21/201706 by LUPIS DEXTER Scheduled PRN Acetaminophen (Tylenol) 325 Mg Tablet, 2 TAB PO PRN Q6HRS PRN for PAIN, #30 (Reported) Entered as Reported by: LUPIS DEXTER on 11/21/201706 Last Action: New Order on 11/21/201706 by LUPIS DEXTER Hydrocodone/Acetaminophen (Hydrocodone-Acetamin 5-325 mg) 1 Each Tablet, 1 EACH PO PRN Q4HRS PRN for PAIN, #45 Prescribed by: ALEX MCCALL on 11/27/20 1252 Latanoprost (Xalatan) 2.5 Ml Drops, 1 DROP OU BID PRN for glaucoma , (Reported) Entered as Reported by: LUPIS DEXTER on 11/21/201706 Last Action: New Order on 11/21/201706 by LUPIS DEXTER Loperamide Hcl (Loperamide) 2 Mg Tablet, 2 MG PO PRN PRN for DIARRHEA, (Reported) Entered as Reported by: LUPIS DEXTER on 11/21/201706 Last Action: New Order on 11/21/201706 by LUPIS DEXTER Lorazepam (Ativan) 1 Mg Tablet, 1 MG PO Q4HRS PRN for ANXIETY / AGITATION, #50 Prescribed by: ALEX MCCALL on 11/27/20 1252 Magnesium Hydroxide (Milk Of Magnesia) 400 Mg/5 Ml Oral.susp, 1,200 MG PO PRN DAILY PRN for CONSTIPATION, (Reported) Entered as Reported by: LUPIS DEXTER on 11/21/201706 Last Action: New Order on 11/21/201706 by LUPIS DEXTER Polyethylene Glycol 3350 (Miralax) 17 Gm Powd.pack, 1 PACKET PO PRN DAILY PRN for CONSTIPATION for 2 Days, Ref 0 (Reported) dissolve in water Entered as Reported by: LUPIS DEXTER on 11/21/201706 Last Action: New Order on 11/21/201706 by LUPIS DEXTER Patient Instructions Patient Instructions pt seen for DC Justicifation of Admission Dx: Justifications for Admission: Justification of Admission Dx: Yes Altered Mental Status: Altered Mental Status ALEX MCCALL MD Nov 28, 2020 15:09
--- NOTE | 2020-11-28 17:18 | NUR ---
Pt discharged back to [facility] via wheelchair with transportation from [facility]. Wound care saw patient prior to discharge. Discharge paperwork and prescription for Augmentin sent to facility with patient. Report called to Ayesha at 1513 today. Pt left with belongings no concers at discharge.
== END 2020-11-28 17:30 | DRG 871 ==
LOC: ER 03:05 → ED HOLD 06:22 → 4 NORTH 17:43
PROVIDERS: ADMIT Internal Medicine; ATTEND Internal Medicine
DX: A41.9 Sepsis, unspecified organism (principal); E43 Unspecified severe protein-calorie malnutrition; E87.1 Hypo-osmolality and hyponatremia; N13.6 Pyonephrosis; I50.32 Chronic diastolic (congestive) heart failure; Z68.1 Body mass index [BMI] 19.9 or less, adult; Z68.20 Body mass index [BMI] 20.0-20.9, adult; E78.5 Hyperlipidemia, unspecified; D64.9 Anemia, unspecified; E03.9 Hypothyroidism, unspecified; E78.00 Pure hypercholesterolemia, unspecified; E86.1 Hypovolemia; F20.9 Schizophrenia, unspecified; G20 Parkinson's disease; G90.9 Disorder of the autonomic nervous system, unspecified; I11.0 Hypertensive heart disease with heart failure; I49.3 Ventricular premature depolarization; I73.1 Thromboangiitis obliterans [Buerger's disease]; I73.9 Peripheral vascular disease, unspecified; J44.9 Chronic obstructive pulmonary disease, unspecified; S91.301A Unspecified open wound, right foot, initial encounter; S91.302A Unspecified open wound, left foot, initial encounter; Z95.0 Presence of cardiac pacemaker; Z99.3 Dependence on wheelchair; X58.XXXA Exposure to other specified factors, initial encounter; Y93.89 Activity, other specified; Y92.89 Other specified places as the place of occurrence of the external cause; Y99.8 Other external cause status; Z79.890 Hormone replacement therapy; K52.9 Noninfective gastroenteritis and colitis, unspecified; R33.9 Retention of urine, unspecified
CPT/HCPCS: 36415; 74177; 80048; 80053; 81001; 82607; 83540; 83550; 83690; 84145; 84484; 85007; 85025; 87040; 87086; 93005; 93925; 96365; 96375; C9113; J1644; J2060; J2248; J2543; J3010; J3420; J7030; J7060; J7120; Q9967; 73630-50; 99285-25; G0378